=== PATIENT | female | born 1990 | race American Indian/Alaskan Native ===

== ENCOUNTER 2020-09-17 23:48 | Emergency (ER) | payer MEDICAID, OTHER ==
--- NOTE | 2020-09-17 23:55 | EDM.PDOC ---
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 Patient states some concern that she may be . Patient has not had a period in past 2 months. Patient did mention that she is having some lower abdominal pain with the bleeding she has not seen any clots or tissue passed. Patient denies any weakness or fatigue. Patient also reported having a little bit of alcohol joint earlier today abdominal Pain Score (Numeric/FACES): 7 - Related Data Allergies Allergy/AdvReac Type Severity Reaction Status Date / Time No Known Allergies Allergy Verified 09/17/20 23:49 Home Meds: Home Meds . [No Known Home Meds] 09/17/20 [History] ED ROS GENERAL - Review of Systems Review Of Systems: See Below Constitutional: Reports: No Symptoms HEENT: Reports: No Symptoms Respiratory: Reports: No Symptoms Cardiovascular: Reports: No Symptoms Endocrine: Reports: No Symptoms GI/Abdominal: Reports: No Symptoms : Reports: Irregular Menses Musculoskeletal: Reports: No Symptoms Skin: Reports: No Symptoms Neurological: Reports: No Symptoms Psychiatric: Reports: No Symptoms Hematologic/Lymphatic: Reports: No Symptoms Immunologic: Reports: No Symptoms ED EXAM, GENERAL - Physical Exam Exam: See Below Exam Limited By: No Limitations General Appearance: Alert, No Apparent Distress Eye Exam: Bilateral Eye: EOMI, PERRL Head: Atraumatic Neck: Normal Inspection Respiratory/Chest: No Respiratory Distress, Lungs Clear Cardiovascular: Normal Peripheral Pulses, Regular Rate, Rhythm GI/Abdominal: Normal Bowel Sounds, Soft, Non-Tender (Female) Exam: Normal External Exam, Normal Speculum Exam, Normal Bimanual Exam, Vaginal Bleeding. No: Adnexal Tenderness, Cervix Motion Tenderness Extremities: Normal Range of Motion Neurological: Alert, Oriented, CN II-XII Intact, Normal Cognition, Normal Gait Course - Vital Signs Last Recorded V/S: Last Vital Signs Temp 96.7 F L 09/18/20 02:27 Pulse 96 09/18/20 02:27 Resp 18 09/18/20 02:27 BP 167/97 H 09/18/20 02:27 Pulse Ox 100 09/18/20 02:27 - Orders/Labs/Meds Orders: Active Orders 24 hr Category Date Time Status CHLAMYDIA AND GONORRHEA BY TMA Stat Lab 09/18/20 01:45 Received Labs: Laboratory Tests 09/18/20 09/18/20 09/18/20 Range/Units 00:35 00:35 00:35 WBC 10.82 (4.0-11.0) K/uL RBC 4.01 L (4.30-5.90) M/uL Hgb 12.3 (12.0-16.0) g/dL Hct 37.3 (36.0-46.0) % MCV 93.0 (80.0-98.0) fL MCH 30.7 (27.0-32.0) pg MCHC 33.0 (31.0-37.0) g/dL RDW Std Deviation 45.0 (28.0-62.0) fl RDW Coeff of Oleksandr 14 (11.0-15.0) % Plt Count 216 (150-400) K/uL MPV 11.40 (7.40-12.00) fL Neut % (Auto) 66.8 (48.0-80.0) % Lymph % (Auto) 26.2 (16.0-40.0) % Hanson % (Auto) 5.0 (0.0-15.0) % Eos % (Auto) 1.8 (0.0-7.0) % Baso % (Auto) 0.2 (0.0-1.5) % Neut # (Auto) 7.2 H (1.4-5.7) K/uL Lymph # (Auto) 2.8 H (0.6-2.4) K/uL [place] # (Auto) 0.5 (0.0-0.8) K/uL Eos # (Auto) 0.2 (0.0-0.7) K/uL Baso # (Auto) 0.0 (0.0-0.1) K/uL Sodium 142 (136-145) mmol/L Potassium 3.5 (3.5-5.1) mmol/L Chloride 106 (98-107) mmol/L Carbon Dioxide 19.7 L (21.0-32.0) mmol/L BUN 9 (7.0-18.0) mg/dL Creatinine 0.8 (0.6-1.0) mg/dL Est Cr Clr Drug Dosing 92.53 mL/min Estimated GFR (MDRD) > 60.0 ml/min Glucose 124 H (74-106) mg/dL Calcium 9.4 (8.5-10.1) mg/dL Total Bilirubin 0.5 (0.2-1.0) mg/dL AST 99 H (15-37) IU/L ALT 136 H (14-63) IU/L Alkaline Phosphatase 92 (46-116) U/L Total Protein 7.6 (6.4-8.2) g/dL Albumin 3.7 (3.4-5.0) g/dL Globulin 3.9 (2.6-4.0) g/dL Albumin/Globulin Ratio 0.9 (0.9-1.6) HCG, Quant 5940.0 mIU/mL Ethyl Alcohol 15 mg/dL Shanda species DNA (NEGATIVE) Gardnerella DNA Probe (NEGATIVE) Trichomonas DNA Probe (NEGATIVE) Blood Type O POSITIVE 09/18/20 Range/Units 01:45 WBC (4.0-11.0) K/uL RBC (4.30-5.90) M/uL Hgb (12.0-16.0) g/dL Hct (36.0-46.0) % MCV (80.0-98.0) fL MCH (27.0-32.0) pg MCHC (31.0-37.0) g/dL RDW Std Deviation (28.0-62.0) fl RDW Coeff of Oleksandr (11.0-15.0) % Plt Count (150-400) K/uL MPV (7.40-12.00) fL Neut % (Auto) (48.0-80.0) % Lymph % (Auto) (16.0-40.0) % [place] % (Auto) (0.0-15.0) % Eos % (Auto) (0.0-7.0) % Baso % (Auto) (0.0-1.5) % Neut # (Auto) (1.4-5.7) K/uL Lymph # (Auto) (0.6-2.4) K/uL Hanson # (Auto) (0.0-0.8) K/uL Eos # (Auto) (0.0-0.7) K/uL Baso # (Auto) (0.0-0.1) K/uL Sodium (136-145) mmol/L Potassium (3.5-5.1) mmol/L Chloride (98-107) mmol/L Carbon Dioxide (21.0-32.0) mmol/L BUN (7.0-18.0) mg/dL Creatinine (0.6-1.0) mg/dL Est Cr Clr Drug Dosing mL/min Estimated GFR (MDRD) ml/min Glucose (74-106) mg/dL Calcium (8.5-10.1) mg/dL Total Bilirubin (0.2-1.0) mg/dL AST (15-37) IU/L ALT (14-63) IU/L Alkaline Phosphatase (46-116) U/L Total Protein (6.4-8.2) g/dL Albumin (3.4-5.0) g/dL Globulin (2.6-4.0) g/dL Albumin/Globulin Ratio (0.9-1.6) HCG, Quant mIU/mL Ethyl Alcohol mg/dL Shanda species DNA NEGATIVE (NEGATIVE) Gardnerella DNA Probe NEGATIVE (NEGATIVE) Trichomonas DNA Probe NEGATIVE (NEGATIVE) Blood Type Meds: Medications Discontinued Medications Generic Name Dose Route Start Last Admin Trade Name Freq PRN Reason Stop Dose Admin Acetaminophen 650 mg 09/18/20 01:36 09/18/20 02:26 Tylenol PO 09/18/20 01:37 650 mg NOW ONE Administration - Re-Assessments/Exams Free Text/Narrative Re-Assessment/Exam: 09/18/20 01:50 Patient beta-hCG is positive. Still had large clots but no tissue seen. Patient will not be sent for transvaginal ultrasound to confirm IUP. 09/18/20 03:05 , Shows a possible miscarriage. Patient vital signs are stable. Patient will be discharged and will be placed on a beta list to have hCG drawn in 2 days. Departure - Departure Time of Disposition: 03:07 Disposition: Home, Self-Care 01 Condition: Good Clinical Impression: Spontaneous - Discharge Information *PRESCRIPTION DRUG MONITORING PROGRAM REVIEWED*: Not Applicable *COPY OF PRESCRIPTION DRUG MONITORING REPORT IN PATIENT AIDE: Not Applicable Instructions: Miscarriage, [id number] Referrals: PCP,None [Primary Care Provider] - Forms: ED Department Discharge Additional Instructions: The following information is given to patients seen in the emergency department who are being discharged to home. This information is to outline your options for follow-up care. We provide all patients seen in our emergency department with a follow-up referral. The need for follow-up, as well as the timing and circumstances, are variable depending upon the specifics of your emergency department visit. If you don't have a primary care physician on staff, we will provide you with a referral. We always advise you to contact your personal physician following an emergency department visit to inform them of the circumstance of the visit and for follow-up with them and/or the need for any referrals to a consulting specialist. The emergency department will also refer you to a specialist when appropriate. This referral assures that you have the opportunity for follow-up care with a specialist. All of these measure are taken in an effort to provide you with optimal care, which includes your follow-up. Under all circumstances we always encourage you to contact your private physician who remains a resource for coordinating your care. When calling for follow-up care, please make the office aware that this follow-up is from your recent emergency room visit. If for any reason you are refused follow-up, please contact the [facility] Emergency Department at and asked to speak to the emergency department charge nurse. Please follow up with your primary care physician. If you do not have a primary care physician, see below: [facility] [address] [place] [id number] [facility] [address] [place] [id number] Please follow up with [employer] in the next 2 days to have your repeat beta-hCG. You have any increased margareth pain vaginal bleeding or weakness please return to the ED. Sepsis Event Note (ED) - Focused Exam Vital Signs: Vital Signs Temp Pulse Resp BP Pulse Ox 09/18/20 02:27 96.7 F L 96 18 167/97 H 100 09/18/20 01:43 96.7 F L 96 18 142/103 H 97 09/17/20 23:49 98.0 F 102 H 22 H 185/111 H 96 09/17/20 23:48 96.7 F L 96 18 185/111 H 97 - My Orders Last 24 Hours: My Active Orders 09/18/20 01:45 CHLAMYDIA AND GONORRHEA BY TMA Stat - Assessment/Plan Last 24 Hours: My Active Orders 09/18/20 01:45 CHLAMYDIA AND GONORRHEA BY TMA Stat Plan: Patient is a 29-year-old female who presents today for vaginal bleeding. Patient is unsure if she is or not. Will send beta hCG and labs and reassess.
[2020-09-18 01:31] LABS: BLOOD UREA NITROGEN,BUN 9 mg/dL (7.0-18.0); CARBON DIOXIDE,CO2 19.7 mmol/L (21.0-32.0); CHLORIDE,CL 106 mmol/L (98-107); GLUCOSE RANDOM 124 mg/dL (74-106); POTASSIUM,K 3.5 mmol/L (3.5-5.1); SODIUM,NA 142 mmol/L (136-145)
[2020-09-18] MEDS ORDERED: Acetaminophen 325 MG Tab PO ONE (01:36)
--- NOTE | 2020-09-18 02:57 | US ---
INDICATION: Lower abdominal pain and vaginal bleeding COMPARISON: None TECHNIQUE: Multiple grayscale sonographic images of the pelvis. Scanning performed transabdominally and transvaginally. FINDINGS: No evidence of viable intrauterine gestation. Thickening and heterogeneity of the endometrium with irregular 7 x 6 x 11 mm thick-walled cystic focus in the lower uterine segment. Heterogeneous material fills the endocervical canal. The right ovary measures 2.9 x 2.0 x 2.2 cm. The left ovary measures 1.8 x 1.4 x 2.9 cm. There is grossly unremarkable appearance of both ovaries, which are only seen transabdominally. Suboptimal Doppler evaluation of the ovaries to deep location. IMPRESSION: 1. Irregular thick-walled cystic focus in the lower uterine segment and heterogeneous material filling the endocervical canal. Findings are concerning for failure. Correlate with follow-up ultrasound and serial serum beta HCG levels. 2. Grossly unremarkable appearance of the ovaries. Dictated by Terra Watson MD @ Sep 18 2020 2:50AM Signed by Dr. Terra Watson @ Sep 18 2020 2:56AM
[2020-09-19 12:03] LABS: C.TRACHOMATIS BY TMA Negative (Negative); N.GONORRHOEAE BY TMA Negative (Negative)
== END 2020-09-18 03:22 | disposition home or self-care (01) ==
LOC: MW.ED 23:48
DX: O03.9 Complete or unspecified spontaneous abortion without complication (principal)
CPT/HCPCS: 36415; 76817; 80053; 80307; 84702; 85025; 86900; 86901; 87480; 87491; 87510; 87591; 87660; 99284; A9270; 99283

== ENCOUNTER 2020-11-15 16:31 | Inpatient (IN) | payer MEDICAID, OTHER ==
[2020-11-15] MEDS ORDERED: Sodium Chloride 0.9% 1,000 ML IV ONE ×2 (16:40→20:25)
[2020-11-15] MEDS ORDERED: Sodium Chloride 0.9% 10 ML Syringe FLUSH PRN (16:40)
[2020-11-15] MEDS ORDERED: Sodium Chloride 0.9% 2.5 ML Syringe FLUSH PRN (16:40)
[2020-11-15] MEDS ORDERED: LORazepam 2 MG/ML SDV IVPUSH ONE (16:50)
[2020-11-15] MEDS ORDERED: Sodium Chloride 0.9% 1,000 ML IV SCH ×2 (17:00→20:45)
[2020-11-15] MEDS ORDERED: MVI, Adult with Vitamin K 10 ML, Thiamine 100 MG, Folic Acid 1 MG in Sodium Chloride 0.... IV ONE ×4 (17:15)
--- NOTE | 2020-11-15 17:15 | EDM.PDOC ---
ED HPI GENERAL MEDICAL PROBLEM - General Chief Complaint: Syncope Stated Complaint: SYNCOPE Time Seen by Provider: 11/15/20 16:50 Source of Information: Reports: Patient History Limitations: Reports: No Limitations - History of Present Illness INITIAL COMMENTS - FREE TEXT/NARRATIVE: 30-year-old female G7, P4, [place] 8 weeks per patient, was brought in by ambulance for possible syncopal episode at work. SHe denies ever passing out, but admits to feeling dizziness. She admits to binge drinking alcohol on friday and started having nausea and vomiting the following day, she has not been tolerating anything p.o. since. She admits to feeling tremulous, agitated, nausea, vomiting sweaty, anxious, agitated, head fullness sensation. She claims she had a miscarriage in September and became in October. She currently denies chest pain, shortness of breath, abdominal pain, vaginal bleeding, leakage of fluid, pelvic pain. ROS: A 10-point review of systems, other than pertinent positives and negatives as stated per HPI, is otherwise negative Past medical history: No additional pertinent history Past Surgical history: No additional pertinent history Social history: No additional pertinent history Family history: No additional pertinent history PHYSICAL EXAM General: AOx4, GCS = 15, moderate distress, tremulous HEENT: dry mucous membrane Skin: Clammy Neck: supple, no meningismus, no Kernig or Brudzinski Cardiac: S1S2 tachycardia Respiratory: CTAB, no crackles or rales, no wheezing Abdomen: Soft, nontender, no rebound or guarding, nondistended, no pulsatile mass. 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: Musculoskeletal History: Reports: None Neurological History: Reports: None Psychiatric History: Reports: Anxiety Endocrine/Metabolic History: Reports: None Hematologic History: Reports: None - Infectious Disease History Infectious Disease History: Reports: None - Past Surgical History Other HEENT Surgeries/Procedures: oral surgery Female Surgical History: Reports: Section Social & Family History - Family History Family Medical History: No Pertinent Family History - Tobacco Use Tobacco Use Status *Q: Never Tobacco User - Caffeine Use Caffeine Use: Reports: None - Recreational Drug Use Recreational Drug Use: No ED ROS GENERAL - Review of Systems Review Of Systems: See Below (see dictation) ED EXAM, GENERAL - Physical Exam Exam: See Below (see dictation) #1 Interpretation EKG Interpretation Comments: Heart rate = 118 bpm, sinus tachycardia, normal QRS interval, no STEMI. EKG and rhythm strip interpreted by me at 1652 Course - Vital Signs Last Recorded V/S: Last Vital Signs Temp 97.9 F 11/15/20 16:34 Pulse 135 H 11/15/20 16:34 Resp 20 11/15/20 16:34 BP 132/90 11/15/20 16:34 Pulse Ox 96 11/15/20 16:34 - Orders/Labs/Meds Orders: Active Orders 24 hr Category Date Time Status Blood Glucose Check, Bedside [RC] ONETIME Care 11/15/20 16:40 Active Cardiac Monitoring [RC] . DIRECTED Care 11/15/20 16:42 Active EKG 12 Lead [EKG Documentation Completion] [RC] STAT Care 11/15/20 17:25 Active Pulse Oximetry [RC] ASDIRECTED Care 11/15/20 16:50 Active OB 1st Tri Sgl 1st Gest [US] Stat Exams 11/15/20 16:51 Ordered CORONAVIRUS COVID-19 RADHA [MOLEC] Stat Lab 11/15/20 16:50 Ordered DRUG SCREEN, URINE [URCHEM] Stat Lab 11/15/20 16:50 Ordered UA W/MICROSCOPIC [URIN] Stat Lab 11/15/20 16:51 Ordered Sodium Chloride 0.9% [Normal Saline] 1,000 ml Med 11/15/20 17:00 Active IV .BOLUS Sodium Chloride 0.9% [Saline Flush] Med 11/15/20 16:40 Active 10 ml FLUSH ASDIRECTED PRN Sodium Chloride 0.9% [Saline Flush] Med 11/15/20 16:40 Active 2.5 ml FLUSH ASDIRECTED PRN Saline Lock Insert [OM.PC] Stat Oth 11/15/20 16:39 Ordered Medication Orders Sodium Chloride (Normal Saline) 1,000 mls @ 999 mls/hr IV .BOLUS ELVA Sodium Chloride (Saline Flush) 10 ml FLUSH ASDIRECTED PRN PRN Reason: Keep Vein Open Last Admin: 11/15/20 18:17 Dose: 10 ml Documented by: [id number] Sodium Chloride (Saline Flush) 2.5 ml FLUSH ASDIRECTED PRN PRN Reason: Keep Vein Open Last Admin: 11/15/20 18:17 Dose: 2.5 ml Documented by: [id number] Labs: Laboratory Tests 11/15/20 11/15/20 11/15/20 Range/Units 16:51 16:51 16:51 WBC 10.86 (4.0-11.0) K/uL RBC 4.70 (4.30-5.90) M/uL Hgb 14.7 (12.0-16.0) g/dL Hct 43.9 (36.0-46.0) % MCV 93.4 (80.0-98.0) fL MCH 31.3 (27.0-32.0) pg MCHC 33.5 (31.0-37.0) g/dL RDW Std Deviation 50.1 (28.0-62.0) fl RDW Coeff of Oleksandr 15 (11.0-15.0) % Plt Count 143 L (150-400) K/uL MPV 11.80 (7.40-12.00) fL Neut % (Auto) 94.8 H (48.0-80.0) % Lymph % (Auto) 4.6 L (16.0-40.0) % [place] % (Auto) 0.5 (0.0-15.0) % Eos % (Auto) 0.1 (0.0-7.0) % Baso % (Auto) 0.0 (0.0-1.5) % Neut # (Auto) 10.3 H (1.4-5.7) K/uL Lymph # (Auto) 0.5 L (0.6-2.4) K/uL [place] # (Auto) 0.1 (0.0-0.8) K/uL Eos # (Auto) 0.0 (0.0-0.7) K/uL Baso # (Auto) 0.0 (0.0-0.1) K/uL Nucleated RBC % 0.3 /100WBC Nucleated RBCs # 0 K/uL INR 1.17 Lactate (0.20-2.00) mmol/L Sodium 137 (136-145) mmol/L Potassium 2.6 L (3.5-5.1) mmol/L Chloride 98 (98-107) mmol/L Carbon Dioxide 23.0 (21.0-32.0) mmol/L BUN 6 L (7.0-18.0) mg/dL Creatinine 1.3 H (0.6-1.0) mg/dL Est Cr Clr Drug Dosing 56.42 mL/min Estimated GFR (MDRD) 47.8 ml/min Glucose 161 H (74-106) mg/dL Calcium 9.3 (8.5-10.1) mg/dL Phosphorus (2.6-4.7) mg/dL Magnesium (1.8-2.4) mg/dL Total Bilirubin 1.1 H (0.2-1.0) mg/dL AST 76 H (15-37) IU/L ALT 85 H (14-63) IU/L Alkaline Phosphatase 127 H (46-116) U/L Creatine Kinase (26-308) U/L Troponin I < 0.050 (0.000-0.056) ng/mL Total Protein 7.6 (6.4-8.2) g/dL Albumin 3.5 (3.4-5.0) g/dL Globulin 4.1 H (2.6-4.0) g/dL Albumin/Globulin Ratio 0.9 (0.9-1.6) HCG, Qual (NEG) HCG, Quant mIU/mL Ethyl Alcohol mg/dL 11/15/20 11/15/20 11/15/20 Range/Units 16:51 16:51 16:51 WBC (4.0-11.0) K/uL RBC (4.30-5.90) M/uL Hgb (12.0-16.0) g/dL Hct (36.0-46.0) % MCV (80.0-98.0) fL MCH (27.0-32.0) pg MCHC (31.0-37.0) g/dL RDW Std Deviation (28.0-62.0) fl RDW Coeff of Oleksandr (11.0-15.0) % Plt Count (150-400) K/uL MPV (7.40-12.00) fL Neut % (Auto) (48.0-80.0) % Lymph % (Auto) (16.0-40.0) % [place] % (Auto) (0.0-15.0) % Eos % (Auto) (0.0-7.0) % Baso % (Auto) (0.0-1.5) % Neut # (Auto) (1.4-5.7) K/uL Lymph # (Auto) (0.6-2.4) K/uL [place] # (Auto) (0.0-0.8) K/uL Eos # (Auto) (0.0-0.7) K/uL Baso # (Auto) (0.0-0.1) K/uL Nucleated RBC % /100WBC Nucleated RBCs # K/uL INR Lactate 3.5 H* (0.20-2.00) mmol/L Sodium (136-145) mmol/L Potassium (3.5-5.1) mmol/L Chloride (98-107) mmol/L Carbon Dioxide (21.0-32.0) mmol/L BUN (7.0-18.0) mg/dL Creatinine (0.6-1.0) mg/dL Est Cr Clr Drug Dosing mL/min Estimated GFR (MDRD) ml/min Glucose (74-106) mg/dL Calcium (8.5-10.1) mg/dL Phosphorus 1.1 L (2.6-4.7) mg/dL Magnesium 0.7 L (1.8-2.4) mg/dL Total Bilirubin (0.2-1.0) mg/dL AST (15-37) IU/L ALT (14-63) IU/L Alkaline Phosphatase (46-116) U/L Creatine Kinase 506 H (26-308) U/L Troponin I (0.000-0.056) ng/mL Total Protein (6.4-8.2) g/dL Albumin (3.4-5.0) g/dL Globulin (2.6-4.0) g/dL Albumin/Globulin Ratio (0.9-1.6) HCG, Qual NEGATIVE (NEG) HCG, Quant < 1.0 mIU/mL Ethyl Alcohol < 3.0 mg/dL Meds: Medications Generic Name Dose Route Start Last Admin Trade Name Freq PRN Reason Stop Dose Admin Sodium Chloride 1,000 mls @ 999 mls/hr 11/15/20 17:00 Normal Saline IV .BOLUS ELVA Sodium Chloride 10 ml 11/15/20 16:40 11/15/20 18:17 Saline Flush FLUSH 10 ml ASDIRECTED PRN Administration Keep Vein Open Sodium Chloride 2.5 ml 11/15/20 16:40 11/15/20 18:17 Saline Flush FLUSH 2.5 ml ASDIRECTED PRN Administration Keep Vein Open Discontinued Medications Generic Name Dose Route Start Last Admin Trade Name Freq PRN Reason Stop Dose Admin Sodium Chloride 1,000 mls @ 999 mls/hr 11/15/20 16:40 11/15/20 18:16 Normal Saline IV 11/15/20 17:40 999 mls/hr .Bolus ONE Administration Multivitamins/Minerals 10 ml/ 1,011.2 mls @ 999 mls/hr 11/15/20 17:15 11/15/20 18:17 Thiamine HCl 100 mg/ Folic IV 11/15/20 18:15 999 mls/hr Acid 1 mg/ Sodium Chloride ONETIME ONE Administration Lorazepam 2 mg 11/15/20 16:50 11/15/20 18:17 Ativan IVPUSH 11/15/20 16:51 2 mg ONETIME ONE Administration - Re-Assessments/Exams Free Text/Narrative Re-Assessment/Exam: 11/15/20 18:[address] Barnes, who agrees to admit patient. The hospitalist's documentation supersedes all other documentation on this patient with regard to any conflicts or discrepancies from this point forward. Any emergency conditions have been treated to the ability of the ED prior to admission. Departure - Departure Time of Disposition: 18:33 Disposition: Admitted As Inpatient 65 Condition: Fair Clinical Impression: Alcohol withdrawal, Hypomagnesemia, Hypokalemia, Hypophosphatemia, Lactic acidosis - Discharge Information *PRESCRIPTION DRUG MONITORING PROGRAM REVIEWED*: Not Applicable *COPY OF PRESCRIPTION DRUG MONITORING REPORT IN PATIENT AIDE: Not Applicable Forms: ED Department Discharge Critical Care Note - Critical Care Note Total Time (mins): 40 Comments: CRITCAL CARE: The high probability of sudden, clinically significant deterioration in the patient's condition required the highest level of my preparedness to intervene urgently. The services I provided to this patient were to treat and/or prevent clinically significant deterioration. Services included the following: chart data review, reviewing nursing notes and/or old charts, documentation time, c consultant collaboration regarding findings and treatment options, medication orders and management, direct patient care, vital sign assessments and ordering, interpreting and reviewing diagnostic studies/lab tests. Aggregate critical care time includes only time during which I was engaged in work directly related to the patient's care, as described above, whether at the bedside or elsewhere in the Emergency Department. It did not include time spent performing other reported procedures or the services of residents, students, nurses or physician assistants. Frequent interventions and/or frequent repeat evaluations were required as well as counseling and coordination of care regarding prognosis, treatments, and discussions with patient, staff and consultants. Critical Care (excluding other procedures): 40 minutes Sepsis Event Note (ED) - Evaluation Sepsis Screening Result: No Definite Risk - Focused Exam Vital Signs: Vital Signs Temp Pulse Resp BP Pulse Ox 11/15/20 16:34 97.9 F 135 H 20 132/90 96 - My Orders Last 24 Hours: My Active Orders 11/15/20 16:39 Saline Lock Insert [OM.PC] Stat 11/15/20 16:40 Blood Glucose Check, Bedside [RC] ONETIME Sodium Chloride 0.9% [Saline Flush] 10 ml FLUSH ASDIRECTED PRN Sodium Chloride 0.9% [Saline Flush] 2.5 ml FLUSH ASDIRECTED PRN 11/15/20 16:42 Cardiac Monitoring [RC] . DIRECTED 11/15/20 16:50 Pulse Oximetry [RC] ASDIRECTED CORONAVIRUS COVID-19 RADHA [MOLEC] Stat DRUG SCREEN, URINE [URCHEM] Stat 11/15/20 16:51 OB 1st Tri Sgl 1st Gest [US] Stat UA W/MICROSCOPIC [URIN] Stat 11/15/20 17:00 Sodium Chloride 0.9% [Normal Saline] 1,000 ml IV .BOLUS 11/15/20 17:25 EKG 12 Lead [EKG Documentation Completion] [RC] STAT - Assessment/Plan Last 24 Hours: My Active Orders 11/15/20 16:39 Saline Lock Insert [OM.PC] Stat 11/15/20 16:40 Blood Glucose Check, Bedside [RC] ONETIME Sodium Chloride 0.9% [Saline Flush] 10 ml FLUSH ASDIRECTED PRN Sodium Chloride 0.9% [Saline Flush] 2.5 ml FLUSH ASDIRECTED PRN 11/15/20 16:42 Cardiac Monitoring [RC] . DIRECTED 11/15/20 16:50 Pulse Oximetry [RC] ASDIRECTED CORONAVIRUS COVID-19 RADHA [MOLEC] Stat DRUG SCREEN, URINE [URCHEM] Stat 11/15/20 16:51 OB 1st Tri Sgl 1st Gest [US] Stat UA W/MICROSCOPIC [URIN] Stat 11/15/20 17:00 Sodium Chloride 0.9% [Normal Saline] 1,000 ml IV .BOLUS 11/15/20 17:25 EKG 12 Lead [EKG Documentation Completion] [RC] STAT
[2020-11-15 17:30] LABS: BLOOD UREA NITROGEN,BUN 6 mg/dL (7.0-18.0); CHLORIDE,CL 98 mmol/L (98-107); GLUCOSE RANDOM 161 mg/dL (74-106); POTASSIUM,K 2.6 mmol/L (3.5-5.1); SODIUM,NA 137 mmol/L (136-145)
--- NOTE | 2020-11-15 18:52 | US ---
INDICATION: Positive home test, recent miscarriage, dizziness COMPARISON: Ob ultrasound 09/18/2020 TECHNIQUE: Multiple grayscale sonographic images of the pelvis. Scanning was performed transabdominally and transvaginally. FINDINGS: The uterus measures 6.6 x 3.5 x 4.0 cm. There is normal thickness of the endometrial stripe, measuring up to 0.6 cm. No intrauterine gestation demonstrated. The right ovary measures 2.1 x 1.3 x 1.9 cm. The left ovary measures 2.0 x 1.0 x 2.2 cm. There is normal sonographic appearance of the ovaries. Intact vascular flow is demonstrated to both ovaries with spectral Doppler. No significant free fluid is seen in the pelvis. IMPRESSION: No intrauterine demonstrated. This may be due to very early gestation or of unknown location. Correlate with serial serum HCG levels and follow-up ultrasound. Dictated by Terra Watson MD @ Nov 15 2020 6:46PM Signed by Dr. Terra Watson @ Nov 15 2020 6:51PM
--- NOTE | 2020-11-15 19:32 | PCM.HP.2 ---
<Jf Sanchez - Last Filed: 11/15/20 20:34> H&P History of Present Illness - General Date of Service: 11/15/20 Admit Problem/Dx: Admission Diagnosis/Problem Admission Diagnosis/Problem Alcohol withdrawal syndrome Source of Information: Patient History Limitations: Reports: No Limitations - History of Present Illness Initial Comments - Free Text/Narative: Patient is a 30-year-old female with no significant past medical history except alcohol use disorder presenting today after having a near syncopal episode while at work. Patient mentions feeling dizzy while at work without any loss of consciousness and or head trauma and was brought to the ED via EMS. On arrival patient states that she has been drinking alcohol heavily over the weekend spec ifically on Friday and having some hard liquor. Does endorse having some beers before that but cannot recall the amount of beers that she had prior to Saturdays binge drinking episode. ED course: Endorses feeling jittery and nauseous with tremors. Denies any hallucinations and or history of seizures. CIWA score greater than 20.. Provided with dose of Ativan 2 mg IV fluids 1 L x 2. Vitals otherwise stable except for mild tachycardia of 135 which improved to 104 after giving IV fluids. CBC negative CMP showed significant electrolyte changes with hypokalemia of 2.6, creatinine of 1.3, phosphorus 1.1 magnesium of 0.7 transaminitis. Of note patient states that she did have a miscarriage on September 22, 2020 and has not had any. Subsequently. Endorsed to the ED physician possibly in October however her hCG in the ED was negative including her quantitative. Ultrasound also performed not show any intrauterine at this time. Bedside: Endorses similar story as above. Mentions Ativan has helped and otherwise denies any hallucinations, cravings and or significant abdominal pain discomfort. - Related Data Allergies/Adverse Reactions: Allergies Allergy/AdvReac Type Severity Reaction Status Date / Time grass pollen Allergy Other Verified 11/15/20 21:59 house dust Allergy Other Verified 11/15/20 21:59 Home Medications: Home Meds Acetaminophen [Tylenol] 650 mg PO Q4H PRN 11/15/20 [History] Ibuprofen 800 mg PO Q6HR PRN 11/15/20 [History] Loratadine/Pseudoephedrine [Loratadine-D 12 Hour Tablet] 1 tab PO DAILY PRN 11/15/20 [History] 168/Iron/Folic/Omega3 [One-A-Day -1 Softgel] 1 tab PO DAILY 11/15/20 [History] Sertraline [Zoloft] 50 mg PO DAILY PRN 11/15/20 [History] traZODone HCl [Trazodone HCl] 50 mg PO BEDTIME 11/15/20 [History] Past Medical History Cardiovascular History: Reports: None Respiratory History: Reports: None Gastrointestinal History: Reports: None [employer] History: Reports: Musculoskeletal History: Reports: None Neurological History: Reports: None Psychiatric History: Reports: Anxiety Endocrine/Metabolic History: Reports: None Hematologic History: Reports: None - Infectious Disease History Infectious Disease History: Reports: None - Past Surgical History Other HEENT Surgeries/Procedures: oral surgery Female Surgical History: Reports: Section Social & Family History - Family History Family Medical History: No Pertinent Family History - Tobacco Use Tobacco Use Status *Q: Never Tobacco User - Caffeine Use Caffeine Use: Reports: None - Recreational Drug Use Recreational Drug Use: No H&P Review of Systems - Review of Systems: Review Of Systems: See Below General: Reports: Malaise, Decreased Appetite HEENT: Reports: No Symptoms Pulmonary: Reports: No Symptoms Cardiovascular: Reports: No Symptoms Gastrointestinal: Denies: Abdominal Pain, Constipation, Vomiting Musculoskeletal: Reports: No Symptoms Skin: Reports: No Symptoms Psychiatric: Reports: No Symptoms Neurological: Reports: Headache, Tremors. Denies: Confusion, Dizziness Exam - Exam Exam: See Below - Vital Signs Vital Signs: Last Vital Signs Temp 97.9 F 11/15/20 16:34 Pulse 104 H 11/15/20 18:36 Resp 20 11/15/20 16:34 BP 102/58 L 11/15/20 18:36 Pulse Ox 93 L 11/15/20 18:36 Weight: 127.006 kg - Exam Quality Assessment: No: Supplemental Oxygen General: Alert, Oriented, Cooperative HEENT: EOMI, Mucosa Moist & [place] Neck: Supple, Trachea Midline Lungs: Clear to Auscultation, Normal Respiratory Effort Cardiovascular: Regular Rate, Regular Rhythm GI/Abdominal Exam: Soft, Non-Tender Back Exam: Normal Inspection Extremities: Normal Inspection Skin: Warm Neurological: Cranial Nerves Intact Neuro Extensive - Mental Status: Alert, Oriented x3, Memory Intact Neuro Extensive - Motor, Sensory, Reflexes: Tremor Psychiatric: Alert - Patient Data Lab Results Last 24 hrs: Laboratory Results - last 24 hr 11/15/20 11/15/20 11/15/20 Range/Units 16:51 16:51 16:51 WBC 10.86 (4.0-11.0) K/uL RBC 4.70 (4.30-5.90) M/uL Hgb 14.7 (12.0-16.0) g/dL Hct 43.9 (36.0-46.0) % MCV 93.4 (80.0-98.0) fL MCH 31.3 (27.0-32.0) pg MCHC 33.5 (31.0-37.0) g/dL RDW Std Deviation 50.1 (28.0-62.0) fl RDW Coeff of Oleksandr 15 (11.0-15.0) % Plt Count 143 L (150-400) K/uL MPV 11.80 (7.40-12.00) fL Neut % (Auto) 94.8 H (48.0-80.0) % Lymph % (Auto) 4.6 L (16.0-40.0) % Isabella % (Auto) 0.5 (0.0-15.0) % Eos % (Auto) 0.1 (0.0-7.0) % Baso % (Auto) 0.0 (0.0-1.5) % Neut # (Auto) 10.3 H (1.4-5.7) K/uL Lymph # (Auto) 0.5 L (0.6-2.4) K/uL Isabella # (Auto) 0.1 (0.0-0.8) K/uL Eos # (Auto) 0.0 (0.0-0.7) K/uL Baso # (Auto) 0.0 (0.0-0.1) K/uL Nucleated RBC % 0.3 /100WBC Nucleated RBCs # 0 K/uL INR 1.17 Lactate (0.20-2.00) mmol/L Sodium 137 (136-145) mmol/L Potassium 2.6 L (3.5-5.1) mmol/L Chloride 98 (98-107) mmol/L Carbon Dioxide 23.0 (21.0-32.0) mmol/L BUN 6 L (7.0-18.0) mg/dL Creatinine 1.3 H (0.6-1.0) mg/dL Est Cr Clr Drug Dosing 56.42 mL/min Estimated GFR (MDRD) 47.8 ml/min Glucose 161 H (74-106) mg/dL Calcium 9.3 (8.5-10.1) mg/dL Phosphorus (2.6-4.7) mg/dL Magnesium (1.8-2.4) mg/dL Total Bilirubin 1.1 H (0.2-1.0) mg/dL AST 76 H (15-37) IU/L ALT 85 H (14-63) IU/L Alkaline Phosphatase 127 H (46-116) U/L Creatine Kinase (26-308) U/L Troponin I < 0.050 (0.000-0.056) ng/mL Total Protein 7.6 (6.4-8.2) g/dL Albumin 3.5 (3.4-5.0) g/dL Globulin 4.1 H (2.6-4.0) g/dL Albumin/Globulin Ratio 0.9 (0.9-1.6) HCG, Qual (NEG) HCG, Quant mIU/mL Ethyl Alcohol mg/dL 11/15/20 11/15/20 11/15/20 Range/Units 16:51 16:51 16:51 WBC (4.0-11.0) K/uL RBC (4.30-5.90) M/uL Hgb (12.0-16.0) g/dL Hct (36.0-46.0) % MCV (80.0-98.0) fL MCH (27.0-32.0) pg MCHC (31.0-37.0) g/dL RDW Std Deviation (28.0-62.0) fl RDW Coeff of Oleksandr (11.0-15.0) % Plt Count (150-400) K/uL MPV (7.40-12.00) fL Neut % (Auto) (48.0-80.0) % Lymph % (Auto) (16.0-40.0) % Isabella % (Auto) (0.0-15.0) % Eos % (Auto) (0.0-7.0) % Baso % (Auto) (0.0-1.5) % Neut # (Auto) (1.4-5.7) K/uL Lymph # (Auto) (0.6-2.4) K/uL Isabella # (Auto) (0.0-0.8) K/uL Eos # (Auto) (0.0-0.7) K/uL Baso # (Auto) (0.0-0.1) K/uL Nucleated RBC % /100WBC Nucleated RBCs # K/uL INR Lactate 3.5 H* (0.20-2.00) mmol/L Sodium (136-145) mmol/L Potassium (3.5-5.1) mmol/L Chloride (98-107) mmol/L Carbon Dioxide (21.0-32.0) mmol/L BUN (7.0-18.0) mg/dL Creatinine (0.6-1.0) mg/dL Est Cr Clr Drug Dosing mL/min Estimated GFR (MDRD) ml/min Glucose (74-106) mg/dL Calcium (8.5-10.1) mg/dL Phosphorus 1.1 L (2.6-4.7) mg/dL Magnesium 0.7 L (1.8-2.4) mg/dL Total Bilirubin (0.2-1.0) mg/dL AST (15-37) IU/L ALT (14-63) IU/L Alkaline Phosphatase (46-116) U/L Creatine Kinase 506 H (26-308) U/L Troponin I (0.000-0.056) ng/mL Total Protein (6.4-8.2) g/dL Albumin (3.4-5.0) g/dL Globulin (2.6-4.0) g/dL Albumin/Globulin Ratio (0.9-1.6) HCG, Qual NEGATIVE (NEG) HCG, Quant < 1.0 mIU/mL Ethyl Alcohol < 3.0 mg/dL Result Diagrams: 11/15/20 16:51 11/15/20 16:51 Sepsis Event Note - Evaluation Sepsis Screening Result: No Definite Risk - Focused Exam Vital Signs: Vital Signs Temp Pulse Resp BP Pulse Ox 11/15/20 18:36 104 H 102/58 L 93 L 11/15/20 16:34 97.9 F 135 H 20 132/90 96 - Problem List (1) Alcohol withdrawal SNOMED Code(s): 054792490 ICD Code: F10.239 - ALCOHOL DEPENDENCE WITH WITHDRAWAL, UNSPECIFIED Status: Acute Current Visit: Yes (2) Hypomagnesemia SNOMED Code(s): 206511610 ICD Code: E83.42 - HYPOMAGNESEMIA Status: Acute Current Visit: Yes (3) Hypokalemia SNOMED Code(s): 41882803 ICD Code: E87.6 - HYPOKALEMIA Status: Acute Current Visit: Yes (4) Hypophosphatemia SNOMED Code(s): 3964637 ICD Code: E83.39 - OTHER DISORDERS OF PHOSPHORUS METABOLISM Status: Acute Current Visit: Yes (5) Lactic acidosis SNOMED Code(s): 52582742 ICD Code: E87.2 - ACIDOSIS Status: Acute Current Visit: Yes Problem List Initiated/Reviewed/Updated: Yes Orders Last 24hrs: Active Orders 24 hr Category Date Time Status Patient Status [ADT] Routine ADT 11/15/20 18:32 Active Blood Glucose Check, Bedside [RC] ONETIME Care 11/15/20 16:40 Active Cardiac Monitoring [RC] . DIRECTED Care 11/15/20 16:42 Active EKG 12 Lead [EKG Documentation Completion] [RC] STAT Care 11/15/20 17:25 Active Pulse Oximetry [RC] ASDIRECTED Care 11/15/20 16:50 Active CORONAVIRUS COVID-19 RADHA [MOLEC] Stat Lab 11/15/20 19:01 Received DRUG SCREEN, URINE [URCHEM] Stat Lab 11/15/20 16:50 Ordered UA W/MICROSCOPIC [URIN] Stat Lab 11/15/20 16:51 Ordered Sodium Chloride 0.9% [Normal Saline] 1,000 ml Med 11/15/20 17:00 Active IV .BOLUS Sodium Chloride 0.9% [Saline Flush] Med 11/15/20 16:40 Active 10 ml FLUSH ASDIRECTED PRN Sodium Chloride 0.9% [Saline Flush] Med 11/15/20 16:40 Active 2.5 ml FLUSH ASDIRECTED PRN Saline Lock Insert [OM.PC] Stat Oth 11/15/20 16:39 Ordered Medication Orders Sodium Chloride (Normal Saline) 1,000 mls @ 999 mls/hr IV .BOLUS ELVA Sodium Chloride (Saline Flush) 10 ml FLUSH ASDIRECTED PRN PRN Reason: Keep Vein Open Last Admin: 11/15/20 18:17 Dose: 10 ml Documented by: [id number] Sodium Chloride (Saline Flush) 2.5 ml FLUSH ASDIRECTED PRN PRN Reason: Keep Vein Open Last Admin: 11/15/20 18:17 Dose: 2.5 ml Documented by: [id number] Assessment/Plan Comment:: Assessment: 1. Acute alcohol withdrawal 2. Alcohol use disorder 3. Elevated lactate 4. Hypokalemia 5. JENNIFER 6. Hypophosphatemia 7. Hypomagnesemia 8. transaminitis 9. hCG negative 10. COVID positive Plan Admit inpatient. Full code. I's and O's per routine vitals per routine Telemetry. Up with assistance. 1. Alcohol withdrawal: Initiate CIWA/Ativan protocol. Continue daily thiamine/folic acid. Replete electrolytes as needed. No significant history of alcohol withdrawal requiring admission; no history of seizures/hallucinations. We will continue to monitor. Last alcoholic drink on Friday, November 11, 2020 Start Diazepam 5 mg BID and titrate down accordingly Significant electrolyte disturbances: replete Mg now followed by potassium, phosphorus Continue to monitor on telemetry JENNIFER: monitor in AM in response to fluid administration 2. hCG negative: hCG qualitative/quantitative negative. Ultrasound also did not demonstrate any intrauterine pregnancies. Miscarriage on September 22, 2020 as confirmed with ultrasound as well. 3. COVID positive: currently not hypoxic, on room air; no overt signs of respirraory distress. Continue to monitor. May consider "BAM" treatment but will need to reassess in AM. <Sonya Barnes - Last Filed: 11/15/20 23:27> H&P History of Present Illness - General Admit Problem/Dx: Admission Diagnosis/Problem Admission Diagnosis/Problem Alcohol withdrawal syndrome - History of Present Illness Initial Comments - Free Text/Narative: I performed a history and physical exam of the patient and discussed management with resident. I have reviewed the residents note and agree with documented findings and plan unless otherwise specified in my note.' Exam - Vital Signs Vital Signs: Last Vital Signs Temp 36.4 C 11/15/20 20:31 Pulse 109 H 11/15/20 20:31 Resp 20 11/15/20 20:31 BP 123/78 11/15/20 20:31 Pulse Ox 97 11/15/20 20:31 - Patient Data Lab Results Last 24 hrs: Laboratory Results - last 24 hr 11/15/20 11/15/20 11/15/20 Range/Units 16:51 16:51 16:51 WBC 10.86 (4.0-11.0) K/uL RBC 4.70 (4.30-5.90) M/uL Hgb 14.7 (12.0-16.0) g/dL Hct 43.9 (36.0-46.0) % MCV 93.4 (80.0-98.0) fL MCH 31.3 (27.0-32.0) pg MCHC 33.5 (31.0-37.0) g/dL RDW Std Deviation 50.1 (28.0-62.0) fl RDW Coeff of Oleksandr 15 (11.0-15.0) % Plt Count 143 L (150-400) K/uL MPV 11.80 (7.40-12.00) fL Neut % (Auto) 94.8 H (48.0-80.0) % Lymph % (Auto) 4.6 L (16.0-40.0) % Isabella % (Auto) 0.5 (0.0-15.0) % Eos % (Auto) 0.1 (0.0-7.0) % Baso % (Auto) 0.0 (0.0-1.5) % Neut # (Auto) 10.3 H (1.4-5.7) K/uL Lymph # (Auto) 0.5 L (0.6-2.4) K/uL Isabella # (Auto) 0.1 (0.0-0.8) K/uL Eos # (Auto) 0.0 (0.0-0.7) K/uL Baso # (Auto) 0.0 (0.0-0.1) K/uL Nucleated RBC % 0.3 /100WBC Nucleated RBCs # 0 K/uL INR 1.17 Lactate (0.20-2.00) mmol/L Sodium 137 (136-145) mmol/L Potassium 2.6 L (3.5-5.1) mmol/L Chloride 98 (98-107) mmol/L Carbon Dioxide 23.0 (21.0-32.0) mmol/L BUN 6 L (7.0-18.0) mg/dL Creatinine 1.3 H (0.6-1.0) mg/dL Est Cr Clr Drug Dosing 56.42 mL/min Estimated GFR (MDRD) 47.8 ml/min Glucose 161 H (74-106) mg/dL Hemoglobin A1c (4.5 - 6.2) % Calcium 9.3 (8.5-10.1) mg/dL Phosphorus (2.6-4.7) mg/dL Magnesium (1.8-2.4) mg/dL Total Bilirubin 1.1 H (0.2-1.0) mg/dL AST 76 H (15-37) IU/L ALT 85 H (14-63) IU/L Alkaline Phosphatase 127 H (46-116) U/L Creatine Kinase (26-308) U/L Troponin I < 0.050 (0.000-0.056) ng/mL Total Protein 7.6 (6.4-8.2) g/dL Albumin 3.5 (3.4-5.0) g/dL Globulin 4.1 H (2.6-4.0) g/dL Albumin/Globulin Ratio 0.9 (0.9-1.6) HCG, Qual (NEG) HCG, Quant mIU/mL Urine Color Urine Appearance Urine pH (5.0-8.0) Ur Specific [place] (1.001-1.035) Urine Protein (NEGATIVE) mg/dL Urine Glucose (UA) (NEGATIVE) mg/dL Urine Ketones (NEGATIVE) mg/dL Urine Occult Blood (NEGATIVE) Urine Nitrite (NEGATIVE) Urine Bilirubin (NEGATIVE) Urine Urobilinogen (<2.0) EU/dL Ur Leukocyte Esterase (NEGATIVE) Urine RBC (0-2/HPF) Urine WBC (0-5/HPF) Ur Epithelial Cells (NONE-FEW) Urine Bacteria (NEGATIVE) Urine Mucus (NONE-MOD) Urine Opiates Screen (NEGATIVE) Ur Oxycodone Screen (NEGATIVE) Urine Methadone Screen (NEGATIVE) Ur Barbiturates Screen (NEGATIVE) Ur Phencyclidine Scrn (NEGATIVE) Ur Amphetamine Screen (NEGATIVE) U Methamphetamines Scrn (NEGATIVE) U Benzodiazepines Scrn (NEGATIVE) U Cocaine Metab Screen (NEGATIVE) U Marijuana (THC) Screen (NEGATIVE) Ethyl Alcohol mg/dL SARS-CoV-2 RNA (RADHA) (NEGATIVE) 11/15/20 11/15/20 11/15/20 Range/Units 16:51 16:51 16:51 WBC (4.0-11.0) K/uL RBC (4.30-5.90) M/uL Hgb (12.0-16.0) g/dL Hct (36.0-46.0) % MCV (80.0-98.0) fL MCH (27.0-32.0) pg MCHC (31.0-37.0) g/dL RDW Std Deviation (28.0-62.0) fl RDW Coeff of Oleksandr (11.0-15.0) % Plt Count (150-400) K/uL MPV (7.40-12.00) fL Neut % (Auto) (48.0-80.0) % Lymph % (Auto) (16.0-40.0) % Isabella % (Auto) (0.0-15.0) % Eos % (Auto) (0.0-7.0) % Baso % (Auto) (0.0-1.5) % Neut # (Auto) (1.4-5.7) K/uL Lymph # (Auto) (0.6-2.4) K/uL Isabella # (Auto) (0.0-0.8) K/uL Eos # (Auto) (0.0-0.7) K/uL Baso # (Auto) (0.0-0.1) K/uL Nucleated RBC % /100WBC Nucleated RBCs # K/uL INR Lactate 3.5 H* (0.20-2.00) mmol/L Sodium (136-145) mmol/L Potassium (3.5-5.1) mmol/L Chloride (98-107) mmol/L Carbon Dioxide (21.0-32.0) mmol/L BUN (7.0-18.0) mg/dL Creatinine (0.6-1.0) mg/dL Est Cr Clr Drug Dosing mL/min Estimated GFR (MDRD) ml/min Glucose (74-106) mg/dL Hemoglobin A1c (4.5 - 6.2) % Calcium (8.5-10.1) mg/dL Phosphorus 1.1 L (2.6-4.7) mg/dL Magnesium 0.7 L (1.8-2.4) mg/dL Total Bilirubin (0.2-1.0) mg/dL AST (15-37) IU/L ALT (14-63) IU/L Alkaline Phosphatase (46-116) U/L Creatine Kinase 506 H (26-308) U/L Troponin I (0.000-0.056) ng/mL Total Protein (6.4-8.2) g/dL Albumin (3.4-5.0) g/dL Globulin (2.6-4.0) g/dL Albumin/Globulin Ratio (0.9-1.6) HCG, Qual NEGATIVE (NEG) HCG, Quant < 1.0 mIU/mL Urine Color Urine Appearance Urine pH (5.0-8.0) Ur Specific [place] (1.001-1.035) Urine Protein (NEGATIVE) mg/dL Urine Glucose (UA) (NEGATIVE) mg/dL Urine Ketones (NEGATIVE) mg/dL Urine Occult Blood (NEGATIVE) Urine Nitrite (NEGATIVE) Urine Bilirubin (NEGATIVE) Urine Urobilinogen (<2.0) EU/dL Ur Leukocyte Esterase (NEGATIVE) Urine RBC (0-2/HPF) Urine WBC (0-5/HPF) Ur Epithelial Cells (NONE-FEW) Urine Bacteria (NEGATIVE) Urine Mucus (NONE-MOD) Urine Opiates Screen (NEGATIVE) Ur Oxycodone Screen (NEGATIVE) Urine Methadone Screen (NEGATIVE) Ur Barbiturates Screen (NEGATIVE) Ur Phencyclidine Scrn (NEGATIVE) Ur Amphetamine Screen (NEGATIVE) U Methamphetamines Scrn (NEGATIVE) U Benzodiazepines Scrn (NEGATIVE) U Cocaine Metab Screen (NEGATIVE) U Marijuana (THC) Screen (NEGATIVE) Ethyl Alcohol < 3.0 mg/dL SARS-CoV-2 RNA (RADHA) (NEGATIVE) 11/15/20 11/15/20 11/15/20 Range/Units 16:51 19:01 21:07 WBC (4.0-11.0) K/uL RBC (4.30-5.90) M/uL Hgb (12.0-16.0) g/dL Hct (36.0-46.0) % MCV (80.0-98.0) fL MCH (27.0-32.0) pg MCHC (31.0-37.0) g/dL RDW Std Deviation (28.0-62.0) fl RDW Coeff of Oleksandr (11.0-15.0) % Plt Count (150-400) K/uL MPV (7.40-12.00) fL Neut % (Auto) (48.0-80.0) % Lymph % (Auto) (16.0-40.0) % Isabella % (Auto) (0.0-15.0) % Eos % (Auto) (0.0-7.0) % Baso % (Auto) (0.0-1.5) % Neut # (Auto) (1.4-5.7) K/uL Lymph # (Auto) (0.6-2.4) K/uL Isabella # (Auto) (0.0-0.8) K/uL Eos # (Auto) (0.0-0.7) K/uL Baso # (Auto) (0.0-0.1) K/uL Nucleated RBC % /100WBC Nucleated RBCs # K/uL INR Lactate (0.20-2.00) mmol/L Sodium (136-145) mmol/L Potassium (3.5-5.1) mmol/L Chloride (98-107) mmol/L Carbon Dioxide (21.0-32.0) mmol/L BUN (7.0-18.0) mg/dL Creatinine (0.6-1.0) mg/dL Est Cr Clr Drug Dosing mL/min Estimated GFR (MDRD) ml/min Glucose (74-106) mg/dL Hemoglobin A1c 5.7 (4.5 - 6.2) % Calcium (8.5-10.1) mg/dL Phosphorus 2.1 L (2.6-4.7) mg/dL Magnesium (1.8-2.4) mg/dL Total Bilirubin (0.2-1.0) mg/dL AST (15-37) IU/L ALT (14-63) IU/L Alkaline Phosphatase (46-116) U/L Creatine Kinase (26-308) U/L Troponin I (0.000-0.056) ng/mL Total Protein (6.4-8.2) g/dL Albumin (3.4-5.0) g/dL Globulin (2.6-4.0) g/dL Albumin/Globulin Ratio (0.9-1.6) HCG, Qual (NEG) HCG, Quant mIU/mL Urine Color Urine Appearance Urine pH (5.0-8.0) Ur Specific [place] (1.001-1.035) Urine Protein (NEGATIVE) mg/dL Urine Glucose (UA) (NEGATIVE) mg/dL Urine Ketones (NEGATIVE) mg/dL Urine Occult Blood (NEGATIVE) Urine Nitrite (NEGATIVE) Urine Bilirubin (NEGATIVE) Urine Urobilinogen (<2.0) EU/dL Ur Leukocyte Esterase (NEGATIVE) Urine RBC (0-2/HPF) Urine WBC (0-5/HPF) Ur Epithelial Cells (NONE-FEW) Urine Bacteria (NEGATIVE) Urine Mucus (NONE-MOD) Urine Opiates Screen (NEGATIVE) Ur Oxycodone Screen (NEGATIVE) Urine Methadone Screen (NEGATIVE) Ur Barbiturates Screen (NEGATIVE) Ur Phencyclidine Scrn (NEGATIVE) Ur Amphetamine Screen (NEGATIVE) U Methamphetamines Scrn (NEGATIVE) U Benzodiazepines Scrn (NEGATIVE) U Cocaine Metab Screen (NEGATIVE) U Marijuana (THC) Screen (NEGATIVE) Ethyl Alcohol mg/dL SARS-CoV-2 RNA (RADHA) POSITIVE H (NEGATIVE) 11/15/20 11/15/20 11/15/20 Range/Units 21:07 21:45 21:45 WBC (4.0-11.0) K/uL RBC (4.30-5.90) M/uL Hgb (12.0-16.0) g/dL Hct (36.0-46.0) % MCV (80.0-98.0) fL MCH (27.0-32.0) pg MCHC (31.0-37.0) g/dL RDW Std Deviation (28.0-62.0) fl RDW Coeff of Oleksandr (11.0-15.0) % Plt Count (150-400) K/uL MPV (7.40-12.00) fL Neut % (Auto) (48.0-80.0) % Lymph % (Auto) (16.0-40.0) % Isabella % (Auto) (0.0-15.0) % Eos % (Auto) (0.0-7.0) % Baso % (Auto) (0.0-1.5) % Neut # (Auto) (1.4-5.7) K/uL Lymph # (Auto) (0.6-2.4) K/uL Isabella # (Auto) (0.0-0.8) K/uL Eos # (Auto) (0.0-0.7) K/uL Baso # (Auto) (0.0-0.1) K/uL Nucleated RBC % /100WBC Nucleated RBCs # K/uL INR Lactate 1.2 (0.20-2.00) mmol/L Sodium (136-145) mmol/L Potassium (3.5-5.1) mmol/L Chloride (98-107) mmol/L Carbon Dioxide (21.0-32.0) mmol/L BUN (7.0-18.0) mg/dL Creatinine (0.6-1.0) mg/dL Est Cr Clr Drug Dosing mL/min Estimated GFR (MDRD) ml/min Glucose (74-106) mg/dL Hemoglobin A1c (4.5 - 6.2) % Calcium (8.5-10.1) mg/dL Phosphorus (2.6-4.7) mg/dL Magnesium (1.8-2.4) mg/dL Total Bilirubin (0.2-1.0) mg/dL AST (15-37) IU/L ALT (14-63) IU/L Alkaline Phosphatase (46-116) U/L Creatine Kinase (26-308) U/L Troponin I (0.000-0.056) ng/mL Total Protein (6.4-8.2) g/dL Albumin (3.4-5.0) g/dL Globulin (2.6-4.0) g/dL Albumin/Globulin Ratio (0.9-1.6) HCG, Qual (NEG) HCG, Quant mIU/mL Urine Color YELLOW Urine Appearance CLOUDY Urine pH 6.5 (5.0-8.0) Ur Specific [place] 1.010 (1.001-1.035) Urine Protein NEGATIVE (NEGATIVE) mg/dL Urine Glucose (UA) NEGATIVE (NEGATIVE) mg/dL Urine Ketones NEGATIVE (NEGATIVE) mg/dL Urine Occult Blood TRACE-INTACT H (NEGATIVE) Urine Nitrite POSITIVE H (NEGATIVE) Urine Bilirubin NEGATIVE (NEGATIVE) Urine Urobilinogen 0.2 (<2.0) EU/dL Ur Leukocyte Esterase LARGE H (NEGATIVE) Urine RBC 0-3 (0-2/HPF) Urine WBC 25-30 (0-5/HPF) Ur Epithelial Cells MODERATE (NONE-FEW) Urine Bacteria 4+ H (NEGATIVE) Urine Mucus LIGHT (NONE-MOD) Urine Opiates Screen NEGATIVE (NEGATIVE) Ur Oxycodone Screen NEGATIVE (NEGATIVE) Urine Methadone Screen NEGATIVE (NEGATIVE) Ur Barbiturates Screen NEGATIVE (NEGATIVE) Ur Phencyclidine Scrn NEGATIVE (NEGATIVE) Ur Amphetamine Screen NEGATIVE (NEGATIVE) U Methamphetamines Scrn NEGATIVE (NEGATIVE) U Benzodiazepines Scrn NEGATIVE (NEGATIVE) U Cocaine Metab Screen NEGATIVE (NEGATIVE) U Marijuana (THC) Screen NEGATIVE (NEGATIVE) Ethyl Alcohol mg/dL SARS-CoV-2 RNA (RADHA) (NEGATIVE) Result Diagrams: 11/15/20 16:51 11/15/20 16:51 Sepsis Event Note - Focused Exam Vital Signs: Vital Signs Temp Pulse Resp BP Pulse Ox 11/15/20 20:31 36.4 C 109 H 20 123/78 97 11/15/20 20:05 37.2 C 96 18 112/64 97 11/15/20 18:36 104 H 102/58 L 93 L 11/15/20 16:34 36.6 C 135 H 20 132/90 96 Orders Last 24hrs: Active Orders 24 hr Category Date Time Status Patient Status [ADT] Routine ADT 11/15/20 18:32 Active Antiembolic Devices [RC] PER UNIT ROUTINE Care 11/15/20 20:31 Active Blood Glucose Check, Bedside [RC] ONETIME Care 11/15/20 16:40 Active CIWAA Assessment [RC] ASDIRECTED Care 11/15/20 20:28 Active Cardiac Monitoring [RC] . DIRECTED Care 11/15/20 16:42 Active EKG 12 Lead [EKG Documentation Completion] [RC] STAT Care 11/15/20 17:25 Active Influenza Vaccine Charge [RC] .DISCHARGE Care 11/15/20 21:45 Active Oxygen Therapy [RC] PRN Care 11/15/20 20:31 Active Pulse Oximetry [RC] ASDIRECTED Care 11/15/20 16:50 Active Telemetry Monitoring [Cardiac Monitoring] [RC] . Care 11/15/20 20:28 Active DIRECTED Up With Assistance [RC] ASDIRECTED Care 11/15/20 20:31 Active VTE/DVT Education [RC] PER UNIT ROUTINE Care 11/15/20 20:31 Active Vital Signs [RC] Q4H Care 11/15/20 20:31 Active Regular Diet [DIET] Diet 11/15/20 Breakfast Active CBC WITH AUTO DIFF [HEME] AM Lab 11/16/20 05:11 Ordered CBC WITH AUTO DIFF [HEME] AM Lab 11/17/20 05:11 Ordered CBC WITH AUTO DIFF [HEME] AM Lab 11/18/20 05:11 Ordered COMPREHENSIVE METABOLIC PN,CMP [CHEM] AM Lab 11/16/20 05:11 Ordered COMPREHENSIVE METABOLIC PN,CMP [CHEM] AM Lab 11/17/20 05:11 Ordered COMPREHENSIVE METABOLIC PN,CMP [CHEM] AM Lab 11/18/20 05:11 Ordered LACTATE WITH REFLEX [BG] Urgent Lab 11/15/20 23:00 Ordered MAGNESIUM [CHEM] AM Lab 11/16/20 05:11 Ordered MAGNESIUM [CHEM] AM Lab 11/17/20 05:11 Ordered MAGNESIUM [CHEM] AM Lab 11/18/20 05:11 Ordered PHOSPHORUS [CHEM] DAILY Lab 11/16/20 20:30 Ordered PHOSPHORUS [CHEM] DAILY Lab 11/17/20 20:30 Ordered Flu Vacc [id number](6Mos Up)/Pf [Fluzone Quad Med 11/16/20 09:00 Once Syringe] 60 mcg IM .ONCE ONE Folic Acid Med 11/16/20 09:00 Active 1 mg PO DAILY Heparin Sodium Med 11/15/20 20:45 Active 5,000 units SUBCUT Q12H LORazepam [Ativan] Med 11/15/20 20:30 Active See Protocol IVPUSH Q4H Magnesium Sulfate/Water [Magnesium Sulfate in Water 2 Med 11/15/20 22:45 Active GM/50 ML] 2 gm in 50 ml IV ONETIME Ondansetron [Zofran] Med 11/15/20 20:31 Active 4 mg IVPUSH Q4H PRN Phosphorus #1 [Neutra-Phos] Med 11/16/20 00:00 Active 250 mg PO QID Sodium Chloride 0.9% [Normal Saline] 1,000 ml Med 11/15/20 17:00 Active IV .BOLUS Sodium Chloride 0.9% [Normal Saline] 1,000 ml Med 11/15/20 20:45 Active IV CONTINUOUS Sodium Chloride 0.9% [Saline Flush] Med 11/15/20 16:40 Active 10 ml FLUSH ASDIRECTED PRN Sodium Chloride 0.9% [Saline Flush] Med 11/15/20 16:40 Active 2.5 ml FLUSH ASDIRECTED PRN Sodium Chloride 0.9% with KCl [Normal Saline with 40 Med 11/15/20 22:45 Active mEq KCl] 1,000 ml IV ASDIRECTED diazePAM [Valium.] Med 11/15/20 22:45 Active 5 mg PO BID Saline Lock Insert [OM.PC] Stat Ot 11/15/20 16:39 Ordered Sequential Compression Device [OM.PC] Per Unit Routine Oth 11/15/20 20:31 Ordered Resuscitation Status Routine Resus Stat 11/15/20 20:31 Ordered Medication Orders Diazepam (Valium.) 5 mg PO BID [facility] Folic Acid (Folic Acid) 1 mg PO DAILY [facility] Heparin Sodium (Porcine) (Heparin Sodium) 5,000 units SUBCUT Q12H [facility] Last Admin: 11/15/20 22:45 Dose: 5,000 units Documented by: [id number] Sodium Chloride (Normal Saline) 1,000 mls @ 999 mls/hr IV .BOLUS [facility] Sodium Chloride (Normal Saline) 1,000 mls @ 150 mls/hr IV CONTINUOUS [facility] Potassium Chloride/Sodium Chloride (Normal Saline With 40 Meq Kcl) 1,000 mls @ 125 mls/hr IV ASDIRECTED [facility] Magnesium Sulfate (Magnesium Sulfate In Water 2 Gm/50 Ml) 2 gm in 50 mls @ 50 mls/hr IV ONETIME [facility] Influenza Virus Vaccine (Fluzone Quad Syringe) 60 mcg IM .ONCE ONE Stop: 11/16/20 09:01 Lorazepam (Ativan) 0 mg IVPUSH Q4H [facility]; Protocol Ondansetron HCl (Zofran) 4 mg IVPUSH Q4H PRN PRN Reason: Nausea Sodium Chloride (Saline Flush) 10 ml FLUSH ASDIRECTED PRN PRN Reason: Keep Vein Open Last Admin: 11/15/20 18:17 Dose: 10 ml Documented by: [id number] Sodium Chloride (Saline Flush) 2.5 ml FLUSH ASDIRECTED PRN PRN Reason: Keep Vein Open Last Admin: 11/15/20 18:17 Dose: 2.5 ml Documented by: [id number] Sodium Phosphate (Neutra-Phos) 250 mg PO QID [facility]
[2020-11-15] MEDS ORDERED: Magnesium Sulfate/Water 2 GM/50 ML BAG IV SCH ×2 (20:00→22:45)
[2020-11-15] MEDS ORDERED: Potassium Chloride 20 MEQ Tab.ER PO ONE ×2 (20:26→22:47)
[2020-11-15] MEDS ORDERED: Thiamine 100 MG in Sodium Chloride 0.9% 100 ML IV ONE (20:27)
[2020-11-15] MEDS ORDERED: Ondansetron 4 MG/2 ML SDV IVPUSH PRN (20:31)
[2020-11-15 20:52] LABS: HEMOGLOBIN A1C 5.7 %
[2020-11-15] MEDS ORDERED: diazePAM 5 MG/ML MDV IVPUSH SCH (21:00)
[2020-11-15] MEDS ORDERED: Potassium Chloride 10% 20 MEQ/15 ML Soln 30 ML UD Cup PO ONE (22:36)
[2020-11-15] MEDS ORDERED: Potassium Chloride 40 MEQ in Dextrose 5% in Water 1,000 ML IV SCH ×2 (22:45)
[2020-11-15] MEDS: Heparin Sodium 5,000 Units/ML Vial SUBCUT SCH (22:45)
[2020-11-15] MEDS ORDERED: Sodium Chloride 0.9% with KCl 1,000 ML IV SCH (22:45)
[2020-11-15] MEDS: LORazepam 2 MG/ML SDV IVPUSH SCH (23:17)
[2020-11-15] MEDS: Diazepam 5 MG Tab PO SCH (23:44)
[2020-11-16] MEDS: LORazepam 2 MG/ML SDV IVPUSH SCH ×6 (00:30→20:15)
[2020-11-16] MEDS: Phosphorus #1 250 MG Tab PO SCH ×5 (00:38→23:22)
[2020-11-16] MEDS ORDERED: cefTRIAXone 1 GM in Premix Bag 1 BAG IV SCH (01:15)
[2020-11-16] MEDS: Acetaminophen 325 MG Tab PO PRN ×3 (04:34→22:46)
[2020-11-16 06:14] LABS: CARBON DIOXIDE,CO2 24.5 mmol/L (21.0-32.0); POTASSIUM,K 3.3 mmol/L (3.5-5.1)
[2020-11-16] MEDS ORDERED: Potassium Chloride 20 MEQ Tab.ER PO ONE (08:15)
[2020-11-16] MEDS: Folic Acid 1 MG Tab PO SCH (09:00)
[2020-11-16] MEDS ORDERED: FLU VACC QS2020-21(6MOS UP)/PF 60 MCG/0.5 ML SYRINGE IM ONE (09:00)
[2020-11-16] MEDS: Sertraline 50 MG Tab PO SCH (09:08)
[2020-11-16] MEDS: Heparin Sodium 5,000 Units/ML Vial SUBCUT SCH ×2 (09:08→20:13)
[2020-11-16] MEDS: Diazepam 5 MG Tab PO SCH (09:08)
[2020-11-16] MEDS: Thiamine 100 MG in Sodium Chloride 0.9% 100 ML IV SCH (09:09)
[2020-11-16] MEDS: Sodium Chloride 0.9% 1,000 ML IV SCH ×2 (09:13→18:38)
--- NOTE | 2020-11-16 11:48 | PCM.PN ---
<Jf Sanchez - Last Filed: 11/16/20 12:38> - General Info Date of Service: 11/16/20 Subjective Update: Bedside: endorsing feeling less tremulous. Denies hallucinations/seizures. Denies dysuria Functional Status: Reports: Pain Controlled - Review of Systems General: Reports: Fatigue. Denies: Fever HEENT: Reports: No Symptoms Pulmonary: Reports: No Symptoms Cardiovascular: Reports: No Symptoms Gastrointestinal: Reports: No Symptoms. Denies: Nausea, Vomiting Musculoskeletal: Reports: No Symptoms Neurological: Reports: Headache, Tremors Psychiatric: Reports: No Symptoms - Patient Data Vitals - Most Recent: Last Vital Signs Temp 99.1 F 11/16/20 08:00 Pulse 102 H 11/16/20 08:00 Resp 20 11/16/20 08:00 BP 117/65 11/16/20 08:00 Pulse Ox 95 11/16/20 03:57 Weight - Most Recent: 124.103 kg I&O - Last 24 Hours: Intake & Output 11/15/20 11/16/20 11/16/20 22:59 06:59 14:59 Intake Total 3260 Output Total 950 Balance 2310 Lab Results Last 24 Hours: Laboratory Results - last 24 hr 11/15/20 11/15/20 11/15/20 Range/Units 16:51 16:51 16:51 WBC 10.86 (4.0-11.0) K/uL RBC 4.70 (4.30-5.90) M/uL Hgb 14.7 (12.0-16.0) g/dL Hct 43.9 (36.0-46.0) % MCV 93.4 (80.0-98.0) fL MCH 31.3 (27.0-32.0) pg MCHC 33.5 (31.0-37.0) g/dL RDW Std Deviation 50.1 (28.0-62.0) fl RDW Coeff of Oleksandr 15 (11.0-15.0) % Plt Count 143 L (150-400) K/uL MPV 11.80 (7.40-12.00) fL Neut % (Auto) 94.8 H (48.0-80.0) % Lymph % (Auto) 4.6 L (16.0-40.0) % [place] % (Auto) 0.5 (0.0-15.0) % Eos % (Auto) 0.1 (0.0-7.0) % Baso % (Auto) 0.0 (0.0-1.5) % Neut # (Auto) 10.3 H (1.4-5.7) K/uL Lymph # (Auto) 0.5 L (0.6-2.4) K/uL [place] # (Auto) 0.1 (0.0-0.8) K/uL Eos # (Auto) 0.0 (0.0-0.7) K/uL Baso # (Auto) 0.0 (0.0-0.1) K/uL Nucleated RBC % 0.3 /100WBC Nucleated RBCs # 0 K/uL INR 1.17 Lactate (0.20-2.00) mmol/L Sodium 137 (136-145) mmol/L Potassium 2.6 L (3.5-5.1) mmol/L Chloride 98 (98-107) mmol/L Carbon Dioxide 23.0 (21.0-32.0) mmol/L BUN 6 L (7.0-18.0) mg/dL Creatinine 1.3 H (0.6-1.0) mg/dL Est Cr Clr Drug Dosing 56.42 mL/min Estimated GFR (MDRD) 47.8 ml/min Glucose 161 H (74-106) mg/dL Hemoglobin A1c (4.5 - 6.2) % Calcium 9.3 (8.5-10.1) mg/dL Phosphorus (2.6-4.7) mg/dL Magnesium (1.8-2.4) mg/dL Total Bilirubin 1.1 H (0.2-1.0) mg/dL AST 76 H (15-37) IU/L ALT 85 H (14-63) IU/L Alkaline Phosphatase 127 H (46-116) U/L Creatine Kinase (26-308) U/L Troponin I < 0.050 (0.000-0.056) ng/mL Total Protein 7.6 (6.4-8.2) g/dL Albumin 3.5 (3.4-5.0) g/dL Globulin 4.1 H (2.6-4.0) g/dL Albumin/Globulin Ratio 0.9 (0.9-1.6) HCG, Qual (NEG) HCG, Quant mIU/mL Urine Color Urine Appearance Urine pH (5.0-8.0) Ur Specific [place] (1.001-1.035) Urine Protein (NEGATIVE) mg/dL Urine Glucose (UA) (NEGATIVE) mg/dL Urine Ketones (NEGATIVE) mg/dL Urine Occult Blood (NEGATIVE) Urine Nitrite (NEGATIVE) Urine Bilirubin (NEGATIVE) Urine Urobilinogen (<2.0) EU/dL Ur Leukocyte Esterase (NEGATIVE) Urine RBC (0-2/HPF) Urine WBC (0-5/HPF) Ur Epithelial Cells (NONE-FEW) Urine Bacteria (NEGATIVE) Urine Mucus (NONE-MOD) Urine Opiates Screen (NEGATIVE) Ur Oxycodone Screen (NEGATIVE) Urine Methadone Screen (NEGATIVE) Ur Barbiturates Screen (NEGATIVE) Ur Phencyclidine Scrn (NEGATIVE) Ur Amphetamine Screen (NEGATIVE) U Methamphetamines Scrn (NEGATIVE) U Benzodiazepines Scrn (NEGATIVE) U Cocaine Metab Screen (NEGATIVE) U Marijuana (THC) Screen (NEGATIVE) Ethyl Alcohol mg/dL SARS-CoV-2 RNA (RADHA) (NEGATIVE) 11/15/20 11/15/20 11/15/20 Range/Units 16:51 16:51 16:51 WBC (4.0-11.0) K/uL RBC (4.30-5.90) M/uL Hgb (12.0-16.0) g/dL Hct (36.0-46.0) % MCV (80.0-98.0) fL MCH (27.0-32.0) pg MCHC (31.0-37.0) g/dL RDW Std Deviation (28.0-62.0) fl RDW Coeff of Oleksandr (11.0-15.0) % Plt Count (150-400) K/uL MPV (7.40-12.00) fL Neut % (Auto) (48.0-80.0) % Lymph % (Auto) (16.0-40.0) % [place] % (Auto) (0.0-15.0) % Eos % (Auto) (0.0-7.0) % Baso % (Auto) (0.0-1.5) % Neut # (Auto) (1.4-5.7) K/uL Lymph # (Auto) (0.6-2.4) K/uL [place] # (Auto) (0.0-0.8) K/uL Eos # (Auto) (0.0-0.7) K/uL Baso # (Auto) (0.0-0.1) K/uL Nucleated RBC % /100WBC Nucleated RBCs # K/uL INR Lactate 3.5 H* (0.20-2.00) mmol/L Sodium (136-145) mmol/L Potassium (3.5-5.1) mmol/L Chloride (98-107) mmol/L Carbon Dioxide (21.0-32.0) mmol/L BUN (7.0-18.0) mg/dL Creatinine (0.6-1.0) mg/dL Est Cr Clr Drug Dosing mL/min Estimated GFR (MDRD) ml/min Glucose (74-106) mg/dL Hemoglobin A1c (4.5 - 6.2) % Calcium (8.5-10.1) mg/dL Phosphorus 1.1 L (2.6-4.7) mg/dL Magnesium 0.7 L (1.8-2.4) mg/dL Total Bilirubin (0.2-1.0) mg/dL AST (15-37) IU/L ALT (14-63) IU/L Alkaline Phosphatase (46-116) U/L Creatine Kinase 506 H (26-308) U/L Troponin I (0.000-0.056) ng/mL Total Protein (6.4-8.2) g/dL Albumin (3.4-5.0) g/dL Globulin (2.6-4.0) g/dL Albumin/Globulin Ratio (0.9-1.6) HCG, Qual NEGATIVE (NEG) HCG, Quant < 1.0 mIU/mL Urine Color Urine Appearance Urine pH (5.0-8.0) Ur Specific [place] (1.001-1.035) Urine Protein (NEGATIVE) mg/dL Urine Glucose (UA) (NEGATIVE) mg/dL Urine Ketones (NEGATIVE) mg/dL Urine Occult Blood (NEGATIVE) Urine Nitrite (NEGATIVE) Urine Bilirubin (NEGATIVE) Urine Urobilinogen (<2.0) EU/dL Ur Leukocyte Esterase (NEGATIVE) Urine RBC (0-2/HPF) Urine WBC (0-5/HPF) Ur Epithelial Cells (NONE-FEW) Urine Bacteria (NEGATIVE) Urine Mucus (NONE-MOD) Urine Opiates Screen (NEGATIVE) Ur Oxycodone Screen (NEGATIVE) Urine Methadone Screen (NEGATIVE) Ur Barbiturates Screen (NEGATIVE) Ur Phencyclidine Scrn (NEGATIVE) Ur Amphetamine Screen (NEGATIVE) U Methamphetamines Scrn (NEGATIVE) U Benzodiazepines Scrn (NEGATIVE) U Cocaine Metab Screen (NEGATIVE) U Marijuana (THC) Screen (NEGATIVE) Ethyl Alcohol < 3.0 mg/dL SARS-CoV-2 RNA (RADHA) (NEGATIVE) 11/15/20 11/15/20 11/15/20 Range/Units 16:51 19:01 21:07 WBC (4.0-11.0) K/uL RBC (4.30-5.90) M/uL Hgb (12.0-16.0) g/dL Hct (36.0-46.0) % MCV (80.0-98.0) fL MCH (27.0-32.0) pg MCHC (31.0-37.0) g/dL RDW Std Deviation (28.0-62.0) fl RDW Coeff of Oleksandr (11.0-15.0) % Plt Count (150-400) K/uL MPV (7.40-12.00) fL Neut % (Auto) (48.0-80.0) % Lymph % (Auto) (16.0-40.0) % [place] % (Auto) (0.0-15.0) % Eos % (Auto) (0.0-7.0) % Baso % (Auto) (0.0-1.5) % Neut # (Auto) (1.4-5.7) K/uL Lymph # (Auto) (0.6-2.4) K/uL [place] # (Auto) (0.0-0.8) K/uL Eos # (Auto) (0.0-0.7) K/uL Baso # (Auto) (0.0-0.1) K/uL Nucleated RBC % /100WBC Nucleated RBCs # K/uL INR Lactate (0.20-2.00) mmol/L Sodium (136-145) mmol/L Potassium (3.5-5.1) mmol/L Chloride (98-107) mmol/L Carbon Dioxide (21.0-32.0) mmol/L BUN (7.0-18.0) mg/dL Creatinine (0.6-1.0) mg/dL Est Cr Clr Drug Dosing mL/min Estimated GFR (MDRD) ml/min Glucose (74-106) mg/dL Hemoglobin A1c 5.7 (4.5 - 6.2) % Calcium (8.5-10.1) mg/dL Phosphorus 2.1 L (2.6-4.7) mg/dL Magnesium (1.8-2.4) mg/dL Total Bilirubin (0.2-1.0) mg/dL AST (15-37) IU/L ALT (14-63) IU/L Alkaline Phosphatase (46-116) U/L Creatine Kinase (26-308) U/L Troponin I (0.000-0.056) ng/mL Total Protein (6.4-8.2) g/dL Albumin (3.4-5.0) g/dL Globulin (2.6-4.0) g/dL Albumin/Globulin Ratio (0.9-1.6) HCG, Qual (NEG) HCG, Quant mIU/mL Urine Color Urine Appearance Urine pH (5.0-8.0) Ur Specific [place] (1.001-1.035) Urine Protein (NEGATIVE) mg/dL Urine Glucose (UA) (NEGATIVE) mg/dL Urine Ketones (NEGATIVE) mg/dL Urine Occult Blood (NEGATIVE) Urine Nitrite (NEGATIVE) Urine Bilirubin (NEGATIVE) Urine Urobilinogen (<2.0) EU/dL Ur Leukocyte Esterase (NEGATIVE) Urine RBC (0-2/HPF) Urine WBC (0-5/HPF) Ur Epithelial Cells (NONE-FEW) Urine Bacteria (NEGATIVE) Urine Mucus (NONE-MOD) Urine Opiates Screen (NEGATIVE) Ur Oxycodone Screen (NEGATIVE) Urine Methadone Screen (NEGATIVE) Ur Barbiturates Screen (NEGATIVE) Ur Phencyclidine Scrn (NEGATIVE) Ur Amphetamine Screen (NEGATIVE) U Methamphetamines Scrn (NEGATIVE) U Benzodiazepines Scrn (NEGATIVE) U Cocaine Metab Screen (NEGATIVE) U Marijuana (THC) Screen (NEGATIVE) Ethyl Alcohol mg/dL SARS-CoV-2 RNA (RADHA) POSITIVE H (NEGATIVE) 02/12/3111/15/20 11/15/20 Range/Units 21:07 21:45 21:45 WBC (4.0-11.0) K/uL RBC (4.30-5.90) M/uL Hgb (12.0-16.0) g/dL Hct (36.0-46.0) % MCV (80.0-98.0) fL MCH (27.0-32.0) pg MCHC (31.0-37.0) g/dL RDW Std Deviation (28.0-62.0) fl RDW Coeff of Oleksandr (11.0-15.0) % Plt Count (150-400) K/uL MPV (7.40-12.00) fL Neut % (Auto) (48.0-80.0) % Lymph % (Auto) (16.0-40.0) % [place] % (Auto) (0.0-15.0) % Eos % (Auto) (0.0-7.0) % Baso % (Auto) (0.0-1.5) % Neut # (Auto) (1.4-5.7) K/uL Lymph # (Auto) (0.6-2.4) K/uL [place] # (Auto) (0.0-0.8) K/uL Eos # (Auto) (0.0-0.7) K/uL Baso # (Auto) (0.0-0.1) K/uL Nucleated RBC % /100WBC Nucleated RBCs # K/uL INR Lactate 1.2 (0.20-2.00) mmol/L Sodium (136-145) mmol/L Potassium (3.5-5.1) mmol/L Chloride (98-107) mmol/L Carbon Dioxide (21.0-32.0) mmol/L BUN (7.0-18.0) mg/dL Creatinine (0.6-1.0) mg/dL Est Cr Clr Drug Dosing mL/min Estimated GFR (MDRD) ml/min Glucose (74-106) mg/dL Hemoglobin A1c (4.5 - 6.2) % Calcium (8.5-10.1) mg/dL Phosphorus (2.6-4.7) mg/dL Magnesium (1.8-2.4) mg/dL Total Bilirubin (0.2-1.0) mg/dL AST (15-37) IU/L ALT (14-63) IU/L Alkaline Phosphatase (46-116) U/L Creatine Kinase (26-308) U/L Troponin I (0.000-0.056) ng/mL Total Protein (6.4-8.2) g/dL Albumin (3.4-5.0) g/dL Globulin (2.6-4.0) g/dL Albumin/Globulin Ratio (0.9-1.6) HCG, Qual (NEG) HCG, Quant mIU/mL Urine Color YELLOW Urine Appearance CLOUDY Urine pH 6.5 (5.0-8.0) Ur Specific [place] 1.010 (1.001-1.035) Urine Protein NEGATIVE (NEGATIVE) mg/dL Urine Glucose (UA) NEGATIVE (NEGATIVE) mg/dL Urine Ketones NEGATIVE (NEGATIVE) mg/dL Urine Occult Blood TRACE-INTACT H (NEGATIVE) Urine Nitrite POSITIVE H (NEGATIVE) Urine Bilirubin NEGATIVE (NEGATIVE) Urine Urobilinogen 0.2 (<2.0) EU/dL Ur Leukocyte Esterase LARGE H (NEGATIVE) Urine RBC 0-3 (0-2/HPF) Urine WBC 25-30 (0-5/HPF) Ur Epithelial Cells MODERATE (NONE-FEW) Urine Bacteria 4+ H (NEGATIVE) Urine Mucus LIGHT (NONE-MOD) Urine Opiates Screen NEGATIVE (NEGATIVE) Ur Oxycodone Screen NEGATIVE (NEGATIVE) Urine Methadone Screen NEGATIVE (NEGATIVE) Ur Barbiturates Screen NEGATIVE (NEGATIVE) Ur Phencyclidine Scrn NEGATIVE (NEGATIVE) Ur Amphetamine Screen NEGATIVE (NEGATIVE) U Methamphetamines Scrn NEGATIVE (NEGATIVE) U Benzodiazepines Scrn NEGATIVE (NEGATIVE) U Cocaine Metab Screen NEGATIVE (NEGATIVE) U Marijuana (THC) Screen NEGATIVE (NEGATIVE) Ethyl Alcohol mg/dL SARS-CoV-2 RNA (RADHA) (NEGATIVE) 11/16/20 11/16/20 Range/Units 05:24 05:24 WBC 11.41 H (4.0-11.0) K/uL RBC 4.21 L (4.30-5.90) M/uL Hgb 13.0 (12.0-16.0) g/dL Hct 40.0 (36.0-46.0) % MCV 95.0 (80.0-98.0) fL MCH 30.9 (27.0-32.0) pg MCHC 32.5 (31.0-37.0) g/dL RDW Std Deviation 53.0 (28.0-62.0) fl RDW Coeff of Oleksandr 15 (11.0-15.0) % Plt Count 111 L (150-400) K/uL MPV 12.10 H (7.40-12.00) fL Neut % (Auto) 92.8 H (48.0-80.0) % Lymph % (Auto) 4.4 L (16.0-40.0) % [place] % (Auto) 2.7 (0.0-15.0) % Eos % (Auto) 0.0 (0.0-7.0) % Baso % (Auto) 0.1 (0.0-1.5) % Neut # (Auto) 10.6 H (1.4-5.7) K/uL Lymph # (Auto) 0.5 L (0.6-2.4) K/uL [place] # (Auto) 0.3 (0.0-0.8) K/uL Eos # (Auto) 0.0 (0.0-0.7) K/uL Baso # (Auto) 0.0 (0.0-0.1) K/uL Nucleated RBC % 0.0 /100WBC Nucleated RBCs # 0 K/uL INR Lactate (0.20-2.00) mmol/L Sodium 140 (136-145) mmol/L Potassium 3.3 L (3.5-5.1) mmol/L Chloride 105 (98-107) mmol/L Carbon Dioxide 24.5 (21.0-32.0) mmol/L BUN 8 (7.0-18.0) mg/dL Creatinine 1.3 H (0.6-1.0) mg/dL Est Cr Clr Drug Dosing 56.42 mL/min Estimated GFR (MDRD) 47.8 ml/min Glucose 159 H (74-106) mg/dL Hemoglobin A1c (4.5 - 6.2) % Calcium 8.2 L (8.5-10.1) mg/dL Phosphorus (2.6-4.7) mg/dL Magnesium 1.8 (1.8-2.4) mg/dL Total Bilirubin 0.6 (0.2-1.0) mg/dL AST 100 H (15-37) IU/L ALT 84 H (14-63) IU/L Alkaline Phosphatase 105 (46-116) U/L Creatine Kinase (26-308) U/L Troponin I (0.000-0.056) ng/mL Total Protein 6.4 (6.4-8.2) g/dL Albumin 2.8 L (3.4-5.0) g/dL Globulin 3.6 (2.6-4.0) g/dL Albumin/Globulin Ratio 0.8 L (0.9-1.6) HCG, Qual (NEG) HCG, Quant mIU/mL Urine Color Urine Appearance Urine pH (5.0-8.0) Ur Specific [place] (1.001-1.035) Urine Protein (NEGATIVE) mg/dL Urine Glucose (UA) (NEGATIVE) mg/dL Urine Ketones (NEGATIVE) mg/dL Urine Occult Blood (NEGATIVE) Urine Nitrite (NEGATIVE) Urine Bilirubin (NEGATIVE) Urine Urobilinogen (<2.0) EU/dL Ur Leukocyte Esterase (NEGATIVE) Urine RBC (0-2/HPF) Urine WBC (0-5/HPF) Ur Epithelial Cells (NONE-FEW) Urine Bacteria (NEGATIVE) Urine Mucus (NONE-MOD) Urine Opiates Screen (NEGATIVE) Ur Oxycodone Screen (NEGATIVE) Urine Methadone Screen (NEGATIVE) Ur Barbiturates Screen (NEGATIVE) Ur Phencyclidine Scrn (NEGATIVE) Ur Amphetamine Screen (NEGATIVE) U Methamphetamines Scrn (NEGATIVE) U Benzodiazepines Scrn (NEGATIVE) U Cocaine Metab Screen (NEGATIVE) U Marijuana (THC) Screen (NEGATIVE) Ethyl Alcohol mg/dL SARS-CoV-2 RNA (RADHA) (NEGATIVE) [place]andel Results Last 24 Hours: Microbiology 11/16/20 01:46 Anaerobic Blood Culture - Preliminary Blood - Venous Med Orders - Current: Current Medications Acetaminophen (Tylenol) 650 mg PO Q6H PRN PRN Reason: Pain Last Admin: 11/16/20 04:34 Dose: 650 mg Documented by: Diazepam (Valium.) 5 mg PO BID ELVA Last Admin: 11/16/20 09:08 Dose: 5 mg Documented by: Folic Acid (Folic Acid) 1 mg PO DAILY [facility] Heparin Sodium (Porcine) (Heparin Sodium) 5,000 units SUBCUT Q12H [facility] Last Admin: 11/16/20 09:08 Dose: 5,000 units Documented by: Sodium Chloride (Normal Saline) 1,000 mls @ 999 mls/hr IV .BOLUS [facility] Magnesium Sulfate (Magnesium Sulfate In Water 2 Gm/50 Ml) 2 gm in 50 mls @ 50 mls/hr IV ONETIME [facility] Last Admin: 11/15/20 23:31 Dose: 50 mls/hr Documented by: Sodium Chloride (Normal Saline) 1,000 mls @ 150 mls/hr IV Q6H [facility] Last Admin: 11/16/20 09:13 Dose: 150 mls/hr Documented by: Thiamine HCl 100 mg/ Sodium (Chloride) 101 mls @ 202 mls/hr IV DAILY [facility] Last Admin: 11/16/20 09:09 Dose: 202 mls/hr Documented by: Ceftriaxone Sodium/Dextrose 2 (gm/ Premix) 50 mls @ 100 mls/hr IV Q24H [facility] Lorazepam (Ativan) 0 mg IVPUSH Q4H [facility]; Protocol Last Admin: 11/16/20 09:11 Dose: Not Given Documented by: Ondansetron HCl (Zofran) 4 mg IVPUSH Q4H PRN PRN Reason: Nausea Sertraline HCl (Zoloft) 50 mg PO DAILY [facility] Last Admin: 11/16/20 09:08 Dose: 50 mg Documented by: Sodium Chloride (Saline Flush) 10 ml FLUSH ASDIRECTED PRN PRN Reason: Keep Vein Open Last Admin: 11/15/20 18:17 Dose: 10 ml Documented by: Sodium Chloride (Saline Flush) 2.5 ml FLUSH ASDIRECTED PRN PRN Reason: Keep Vein Open Last Admin: 11/15/20 18:17 Dose: 2.5 ml Documented by: Sodium Phosphate (Neutra-Phos) 250 mg PO QID [facility] Last Admin: 11/16/20 06:11 Dose: 250 mg Documented by: Discontinued Medications Diazepam (Valium) 5 mg IVPUSH BID [facility] Last Admin: 11/15/20 23:04 Dose: Not Given Documented by: Sodium Chloride (Normal Saline) 1,000 mls @ 999 mls/hr IV .Bolus ONE Stop: 11/15/20 17:40 Last Infusion: 11/15/20 18:16 Dose: 250 mls/hr Documented by: Multivitamins/Minerals 10 ml/Thiamine HCl 100 mg/ Folic Acid 1 mg/ Sodium Chloride 1,011.2 mls @ 999 mls/hr IV ONETIME ONE Stop: 11/15/20 18:15 Last Infusion: 11/15/20 18:17 Dose: 250 mls/hr Documented by: Magnesium Sulfate (Magnesium Sulfate In Water 2 Gm/50 Ml) 2 gm in 50 mls @ 50 mls/hr IV ONETIME [facility] Last Admin: 11/15/20 20:30 Dose: 50 mls/hr Documented by: Sodium Chloride (Normal Saline) 1,000 mls @ 999 mls/hr IV STAT ONE Stop: 11/15/20 21:25 Last Admin: 11/15/20 22:41 Dose: 999 mls/hr Documented by: Thiamine HCl 100 mg/ Sodium (Chloride) 101 mls @ 202 mls/hr IV DAILY ONE Stop: 11/15/20 20:28 Last Admin: 11/15/20 23:16 Dose: Not Given Documented by: Sodium Chloride (Normal Saline) 1,000 mls @ 150 mls/hr IV CONTINUOUS [facility] Potassium Chloride 40 meq/ (Dextrose/Water) 1,020 mls @ 125 mls/hr IV ASDIRECTED [facility] Potassium Chloride/Sodium Chloride (Normal Saline With 40 Meq Kcl) 1,000 mls @ 125 mls/hr IV ASDIRECTED ELVA Stop: 11/16/20 09:00 Last Admin: 11/15/20 23:52 Dose: 125 mls/hr Documented by: Ceftriaxone Sodium/Dextrose 1 (gm/ Premix) 50 mls @ 100 mls/hr IV Q24H [facility] Last Admin: 11/16/20 02:01 Dose: 100 mls/hr Documented by: Influenza Virus Vaccine (Pharmacy To Dose - Influenza Vaccine) 1 each IM ONETIME ONE Stop: 11/16/20 09:01 Influenza Virus Vaccine (Fluzone Quad [id number] Syringe) 60 mcg IM .ONCE ONE Stop: 11/16/20 09:01 Lorazepam (Ativan) 2 mg IVPUSH ONETIME ONE Stop: 11/15/20 16:51 Last Admin: 11/15/20 18:17 Dose: 2 mg Documented by: Potassium Chloride (Klor-Con M20) 40 meq PO ONETIME ONE Stop: 11/15/20 20:27 Last Admin: 11/15/20 23:04 Dose: Not Given Documented by: Potassium Chloride (Potassium Chloride) 40 meq PO ONETIME ONE Stop: 11/15/20 22:37 Last Admin: 11/15/20 23:05 Dose: Not Given Documented by: Potassium Chloride (Klor-Con M20) 40 meq PO ONETIME ONE Stop: 11/15/20 22:48 Last Admin: 11/15/20 23:44 Dose: 40 meq Documented by: Potassium Chloride (Klor-Con M20) 40 meq PO ONETIME ONE Stop: 11/16/20 08:16 Last Admin: 11/16/20 09:07 Dose: 40 meq Documented by: - Exam Quality Assessment: No: Supplemental Oxygen General: Alert, Oriented, Cooperative, No Acute Distress HEENT: Mucous Membr. Moist/[place] Neck: Supple Lungs: Clear to Auscultation, Normal Respiratory Effort Cardiovascular: Regular Rate, Regular Rhythm GI/Abdominal Exam: Soft, Non-Tender Neurological: Normal Gait, Normal Speech, Other (tremors noted ) Psy/Mental Status: Alert, Normal Affect, Normal Mood Sepsis Event Note - Evaluation Sepsis Screening Result: No Definite Risk - Focused Exam Vital Signs: Vital Signs Temp Pulse Resp BP BP Pulse Ox 11/16/20 08:00 99.1 F 102 H 20 117/65 11/16/20 03:57 100.9 F H 122 H 20 111/51 L 95 11/16/20 00:21 99.7 F 102 H 18 122/80 99 - Problem List & Annotations (1) Alcohol withdrawal SNOMED Code(s): 507641045 Code(s): F10.239 - ALCOHOL DEPENDENCE WITH WITHDRAWAL, UNSPECIFIED Status: Acute (2) Hypomagnesemia SNOMED Code(s): 159936148 Code(s): E83.42 - HYPOMAGNESEMIA Status: Acute (3) Hypokalemia SNOMED Code(s): 65022121 Code(s): E87.6 - HYPOKALEMIA Status: Acute (4) Hypophosphatemia SNOMED Code(s): 1965380 Code(s): E83.39 - OTHER DISORDERS OF PHOSPHORUS METABOLISM Status: Acute (5) Lactic acidosis SNOMED Code(s): 74518996 Code(s): E87.2 - ACIDOSIS Status: Acute - Problem List Review Problem List Initiated/Reviewed/Updated: Yes - My Orders Last 24 Hours: My Active Orders 11/15/20 20:28 CIWAA Assessment [RC] ASDIRECTED 11/15/20 20:30 LORazepam [Ativan] See Protocol IVPUSH Q4H 11/15/20 20:31 Antiembolic Devices [RC] PER UNIT ROUTINE Oxygen Therapy [RC] PRN Up With Assistance [RC] ASDIRECTED VTE/DVT Education [RC] PER UNIT ROUTINE Vital Signs [RC] Q4H Ondansetron [Zofran] 4 mg IVPUSH Q4H PRN Sequential Compression Device [OM.PC] Per Unit Routine Resuscitation Status Routine 11/15/20 20:45 Heparin Sodium 5,000 units SUBCUT Q12H 11/16/20 00:00 Phosphorus #1 [Neutra-Phos] 250 mg PO QID 11/16/20 09:00 Folic Acid 1 mg PO DAILY Sertraline [Zoloft] 50 mg PO DAILY Sodium Chloride 0.9% [Normal Saline] 1,000 ml IV Q6H Thiamine [Vitamin B-1] 100 mg Sodium Chloride 0.9% [Normal Saline] 100 ml IV DAILY 11/16/20 11:42 CULTURE BLOOD [BC] Stat CULTURE BLOOD [BC] Stat Blood Culture x2 Reflex Set [OM.PC] Stat 11/16/20 11:45 [id number] [Rocephin in Dextrose,Iso-Osm 2 GM/50 ML] 2 gm Premix Bag 1 bag IV Q24H 11/16/20 20:30 PHOSPHORUS [CHEM] DAILY 11/17/20 05:11 CBC WITH AUTO DIFF [HEME] AM COMPREHENSIVE METABOLIC PN,CMP [CHEM] AM MAGNESIUM [CHEM] AM 11/17/20 20:30 PHOSPHORUS [CHEM] DAILY 11/18/20 05:11 CBC WITH AUTO DIFF [HEME] AM COMPREHENSIVE METABOLIC PN,CMP [CHEM] AM MAGNESIUM [CHEM] AM - Plan Plan:: Assessment: 1. Acute alcohol withdrawal 2. Alcohol use disorder 3. Elevated lactate : resolved 4. Hypokalemia 5. JENNIFER 6. Hypophosphatemia 7. Hypomagnesemia 8. transaminitis 9. hCG negative 10. COVID positive 11. Gram negative rods Bacteremia Plan 1. Alcohol withdrawal: Initiate CIWA/Ativan protocol. Continue daily thiamine/folic acid. Replete electrolytes as needed. We will continue to monitor. Last alcoholic drink on November 11, 2020 Continue Diazepam 5 mg but once nightly; titrate accordingly Significant electrolyte disturbances: improving ; replete PRN Continue to monitor on telemetry JENNIFER: stable and unchanged; monitor in AM 2. Gram negative Rods bacteremia: Rocephin initially started at 1 gram daily for +UA; increase to 2 grams daily and repeat blood cultures ordered. Urine cultures pending. 3.. hCG negative: hCG qualitative/quantitative negative. Ultrasound also did not demonstrate any intrauterine pregnancies. Miscarriage on September 22, 2020 as confirmed with ultrasound as well. 4. COVID positive: currently not hypoxic, on room air; no overt signs of respiratory distress. Continue to monitor. Not a candidate for BAM treatment <Sonya Barnes - Last Filed: 11/18/20 14:41> - Patient Data Vitals - Most Recent: Last Vital Signs Temp 36.4 C 11/18/20 08:21 Pulse 84 11/18/20 08:21 Resp 16 11/18/20 08:21 BP 159/100 H 11/18/20 08:21 Pulse Ox 97 11/18/20 08:21 I&O - Last 24 Hours: Intake & Output 11/17/20 11/18/20 11/18/20 22:59 06:59 14:59 Intake Total 3104 3376 Output Total 850 1520 Balance 2254 1856 Lab Results Last 24 Hours: Laboratory Results - last 24 hr 11/17/20 11/18/20 11/18/20 Range/Units 23:00 06:20 06:20 WBC 10.13 (4.0-11.0) K/uL RBC 3.99 L (4.30-5.90) M/uL Hgb 12.3 (12.0-16.0) g/dL Hct 37.6 (36.0-46.0) % MCV 94.2 (80.0-98.0) fL MCH 30.8 (27.0-32.0) pg MCHC 32.7 (31.0-37.0) g/dL RDW Std Deviation 52.0 (28.0-62.0) fl RDW Coeff of Oleksandr 15 (11.0-15.0) % Plt Count 92 L (150-400) K/uL MPV 12.60 H (7.40-12.00) fL Neut % (Auto) 78.5 (48.0-80.0) % Lymph % (Auto) 12.5 L (16.0-40.0) % [place] % (Auto) 7.3 (0.0-15.0) % Eos % (Auto) 1.6 (0.0-7.0) % Baso % (Auto) 0.1 (0.0-1.5) % Neut # (Auto) 8.0 H (1.4-5.7) K/uL Lymph # (Auto) 1.3 (0.6-2.4) K/uL [place] # (Auto) 0.7 (0.0-0.8) K/uL Eos # (Auto) 0.2 (0.0-0.7) K/uL Baso # (Auto) 0.0 (0.0-0.1) K/uL Nucleated RBC % 0.0 /100WBC Nucleated RBCs # 0 K/uL Sodium 140 (136-145) mmol/L Potassium 4.0 (3.5-5.1) mmol/L Chloride 107 (98-107) mmol/L Carbon Dioxide 23.0 (21.0-32.0) mmol/L BUN 7 (7.0-18.0) mg/dL Creatinine 1.1 H (0.6-1.0) mg/dL Est Cr Clr Drug Dosing 66.68 mL/min Estimated GFR (MDRD) 57.9 ml/min Glucose 109 H (74-106) mg/dL Calcium 8.3 L (8.5-10.1) mg/dL Phosphorus 2.5 L (2.6-4.7) mg/dL Magnesium 1.9 (1.8-2.4) mg/dL Total Bilirubin 0.7 (0.2-1.0) mg/dL AST 71 H (15-37) IU/L ALT 91 H (14-63) IU/L Alkaline Phosphatase 95 (46-116) U/L Total Protein 6.7 (6.4-8.2) g/dL Albumin 2.4 L (3.4-5.0) g/dL Globulin 4.3 H (2.6-4.0) g/dL Albumin/Globulin Ratio 0.6 L (0.9-1.6) Yandel Results Last 24 Hours: Microbiology 11/16/20 12:07 Aerobic Blood Culture - Preliminary Blood - Venous NO GROWTH AFTER 2 DAYS Anaerobic Blood Culture - Preliminary NO GROWTH AFTER 2 DAYS 11/16/20 20:00 Shiga Toxin I & II - Final Stool / Feces 11/16/20 01:46 Aerobic Blood Culture - Final Blood - Venous Escherichia Coli Anaerobic Blood Culture - Final 11/16/20 01:52 Aerobic Blood Culture - Final Blood - Venous - Lab Draw Anaerobic Blood Culture - Final 11/15/20 21:45 Urine Culture - Final Urine, Clean Catch Escherichia Coli Med Orders - Current: Current Medications Discontinued Medications Acetaminophen (Tylenol) 650 mg PO Q6H PRN PRN Reason: Pain/Fever Last Admin: 11/18/20 12:28 Dose: 650 mg Documented by: Diazepam (Valium) 5 mg IVPUSH BID [facility] Last Admin: 11/15/20 23:04 Dose: Not Given Documented by: Diazepam (Valium.) 5 mg PO BID [facility] Last Admin: 11/16/20 09:08 Dose: 5 mg Documented by: Diazepam (Valium) 5 mg IV DAILY [facility] Folic Acid (Folic Acid) 1 mg PO DAILY [facility] Last Admin: 11/18/20 08:24 Dose: 1 mg Documented by: Heparin Sodium (Porcine) (Heparin Sodium) 5,000 units SUBCUT Q12H [facility] Last Admin: 11/18/20 08:24 Dose: 5,000 units Documented by: Sodium Chloride (Normal Saline) 1,000 mls @ 999 mls/hr IV .Bolus ONE Stop: 11/15/20 17:40 Last Infusion: 11/15/20 18:16 Dose: 250 mls/hr Documented by: Sodium Chloride (Normal Saline) 1,000 mls @ 999 mls/hr IV .BOLUS [facility] Multivitamins/Minerals 10 ml/Thiamine HCl 100 mg/ Folic Acid 1 mg/ Sodium Chloride 1,011.2 mls @ 999 mls/hr IV ONETIME ONE Stop: 11/15/20 18:15 Last Infusion: 11/15/20 18:17 Dose: 250 mls/hr Documented by: Magnesium Sulfate (Magnesium Sulfate In Water 2 Gm/50 Ml) 2 gm in 50 mls @ 50 mls/hr IV ONETIME [facility] Last Admin: 11/15/20 20:30 Dose: 50 mls/hr Documented by: Sodium Chloride (Normal Saline) 1,000 mls @ 999 mls/hr IV STAT ONE Stop: 11/15/20 21:25 Last Admin: 11/15/20 22:41 Dose: 999 mls/hr Documented by: Thiamine HCl 100 mg/ Sodium (Chloride) 101 mls @ 202 mls/hr IV DAILY ONE Stop: 11/15/20 20:28 Last Admin: 11/15/20 23:16 Dose: Not Given Documented by: Sodium Chloride (Normal Saline) 1,000 mls @ 150 mls/hr IV CONTINUOUS [facility] Potassium Chloride 40 meq/ (Dextrose/Water) 1,020 mls @ 125 mls/hr IV ASDIRECTED [facility] Potassium Chloride/Sodium Chloride (Normal Saline With 40 Meq Kcl) 1,000 mls @ 125 mls/hr IV ASDIRECTED [facility] Stop: 11/16/20 09:00 Last Admin: 11/15/20 23:52 Dose: 125 mls/hr Documented by: Magnesium Sulfate (Magnesium Sulfate In Water 2 Gm/50 Ml) 2 gm in 50 mls @ 50 mls/hr IV ONETIME [facility] Last Admin: 11/15/20 23:31 Dose: 50 mls/hr Documented by: Ceftriaxone Sodium/Dextrose 1 (gm/ Premix) 50 mls @ 100 mls/hr IV Q24H [facility] Last Admin: 11/16/20 02:01 Dose: 100 mls/hr Documented by: Sodium Chloride (Normal Saline) 1,000 mls @ 150 mls/hr IV Q6H [facility] Last Admin: 11/18/20 10:11 Dose: Not Given Documented by: Thiamine HCl 100 mg/ Sodium (Chloride) 101 mls @ 202 mls/hr IV DAILY [facility] Last Admin: 11/18/20 08:59 Dose: 202 mls/hr Documented by: Ceftriaxone Sodium/Dextrose 2 (gm/ Premix) 50 mls @ 100 mls/hr IV Q24H [facility] Ceftriaxone Sodium/Dextrose 1 (gm/ Premix) 50 mls @ 100 mls/hr IV ONETIME ONE Stop: 11/16/20 12:59 Last Admin: 11/16/20 13:17 Dose: Not Given Documented by: Ceftriaxone Sodium/Dextrose 1 (gm/ Premix) 50 mls @ 100 mls/hr IV ONETIME ONE Stop: 11/16/20 13:14 Last Admin: 11/16/20 13:08 Dose: 100 mls/hr Documented by: Piperacillin Sod/Tazobactam (Sod 3.375 gm/ Sodium Chloride) 50 mls @ 100 mls/hr IV Q6H [facility] Last Admin: 11/17/20 04:01 Dose: 100 mls/hr Documented by: Lactated Ringer's (Ringers, Lactated) 1,000 mls @ 999 mls/hr IV .BOLUS ONE Stop: 11/16/20 17:45 Last Admin: 11/16/20 17:30 Dose: 999 mls/hr Documented by: Piperacillin Sod/Tazobactam (Sod 4.5 gm/ Sodium Chloride) 100 mls @ 200 mls/hr IV Q6H [facility] Last Admin: 11/18/20 10:09 Dose: 200 mls/hr Documented by: Magnesium Sulfate (Magnesium Sulfate In Water 2 Gm/50 Ml) 2 gm in 50 mls @ 50 mls/hr IV ONETIME ONE Stop: 11/17/20 23:29 Last Admin: 11/17/20 22:30 Dose: 50 mls/hr Documented by: Influenza Virus Vaccine (Pharmacy To Dose - Influenza Vaccine) 1 each IM ONETIME ONE Stop: 11/16/20 09:01 Influenza Virus Vaccine (Fluzone Quad 1759-2008 Syringe) 60 mcg IM .ONCE ONE Stop: 11/16/20 09:01 Loperamide HCl (Imodium) 2 mg PO ONETIME ONE Stop: 11/16/20 22:56 Last Admin: 11/16/20 23:13 Dose: 2 mg Documented by: Loperamide HCl (Imodium) 2 mg PO ASDIRECTED PRN PRN Reason: Diarrhea Last Admin: 11/18/20 12:14 Dose: 2 mg Documented by: Lorazepam (Ativan) 2 mg IVPUSH ONETIME ONE Stop: 11/15/20 16:51 Last Admin: 11/15/20 18:17 Dose: 2 mg Documented by: Lorazepam (Ativan) 0 mg IVPUSH Q4H [facility]; Protocol Last Admin: 11/18/20 00:22 Dose: Not Given Documented by: Lorazepam (Ativan) 0 mg IVPUSH Q4H PRN; Protocol PRN Reason: Other Ondansetron HCl (Zofran) 4 mg IVPUSH Q4H PRN PRN Reason: Nausea Potassium Chloride (Klor-Con M20) 40 meq PO ONETIME ONE Stop: 11/15/20 20:27 Last Admin: 11/15/20 23:04 Dose: Not Given Documented by: Potassium Chloride (Potassium Chloride) 40 meq PO ONETIME ONE Stop: 11/15/20 22:37 Last Admin: 11/15/20 23:05 Dose: Not Given Documented by: Potassium Chloride (Klor-Con M20) 40 meq PO ONETIME ONE Stop: 11/15/20 22:48 Last Admin: 11/15/20 23:44 Dose: 40 meq Documented by: Potassium Chloride (Klor-Con M20) 40 meq PO ONETIME ONE Stop: 11/16/20 08:16 Last Admin: 11/16/20 09:07 Dose: 40 meq Documented by: Potassium Chloride (Klor-Con M20) 40 meq PO ONETIME ONE Stop: 11/17/20 07:57 Last Admin: 11/17/20 08:54 Dose: 40 meq Documented by: Sertraline HCl (Zoloft) 50 mg PO DAILY [facility] Last Admin: 11/17/20 08:15 Dose: 50 mg Documented by: Sertraline HCl (Zoloft) 25 mg PO DAILY [facility] Last Admin: 11/17/20 09:44 Dose: Not Given Documented by: Sodium Chloride (Saline Flush) 10 ml FLUSH ASDIRECTED PRN PRN Reason: Keep Vein Open Last Admin: 11/15/20 18:17 Dose: 10 ml Documented by: Sodium Chloride (Saline Flush) 2.5 ml FLUSH ASDIRECTED PRN PRN Reason: Keep Vein Open Last Admin: 11/15/20 18:17 Dose: 2.5 ml Documented by: Sodium Phosphate (Neutra-Phos) 250 mg PO QID [facility] Last Admin: 11/18/20 11:51 Dose: 250 mg Documented by: Sepsis Event Note - Focused Exam Vital Signs: Vital Signs Temp Pulse Resp BP Pulse Ox 11/18/20 08:21 36.4 C 84 16 159/100 H 97 11/18/20 03:23 37.1 C 98 16 144/93 H 100 - Plan Plan:: I have seen and evaluated the patient and agree with the residents note unless specified in my note
[2020-11-16] MEDS ORDERED: cefTRIAXone 1 GM in Premix Bag 1 BAG IV ONE ×2 (12:30→12:45)
[2020-11-16] MEDS ORDERED: Lactated Ringers 1,000 ML IV ONE (16:45)
[2020-11-16] MEDS: Piperacillin/Tazobactam 3.375 GM in Sodium Chloride 0.9% 50 ML IV SCH ×2 (16:53→22:40)
--- NOTE | 2020-11-16 18:39 | CT ---
INDICATION: Bacteremia COMPARISON: Ultrasound of the pelvis from yesterday. TECHNIQUE: CT examination of the abdomen and pelvis was performed without contrast enhancement using 3 mm thick axial sections from the lung bases through the pubic symphysis. Oral contrast was not administered. Please note that all CT scans at this facility use dose modulation, iterative reconstruction, and/or weight-based dosing when appropriate to reduce radiation dose to as low as reasonably achievable. FINDINGS: In the abdomen, the liver is slightly low in density, representing mild fatty infiltration. There is no sign of mass. The spleen, pancreas and adrenals are normal in appearance. There is mild soft tissue stranding around the right kidney with slightly increased size of the right kidney compared to the left. There is no sign of hydronephrosis, hydroureter, ureterolithiasis, or nephrolithiasis. The findings are nonspecific, but could represent pyelonephritis or pyelo interstitial backflow from recent obstruction of the urinary system. The left kidney is normal in appearance with no sign of any perinephric stranding. The left ureter is normal in appearance as well. There is prominent cholelithiasis, with numerous peripherally calcified gallstones filling the gallbladder. There is no sign of acute cholecystitis, with no sign of gallbladder wall thickening or pericholecystic fluid. The abdominal aorta is normal in caliber with no sign of dilatation. There is no sign of retroperitoneal mass or adenopathy. The stomach, loops of small bowel, and colon in the abdomen are normal in appearance. In the pelvis, the retrocecal appendix is normal in appearance with no sign of inflammatory process. The loops of small bowel and colon in the pelvis are normal in appearance. The uterus and adnexal regions are normal in appearance. The urinary bladder is normal in appearance. There is no sign of pelvic or inguinal mass or adenopathy. There is no sign of free air or free fluid in the abdomen or pelvis. The lung bases are clear. There is mild scoliosis of the lumbar spine convex towards the left. 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 There is prominent disc degenerative disease at L2-3 and L3-4 related to the scoliosis. 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 This can be further evaluated with MRI on a nonemergent basis. The appearance of the pelvic organs is consistent with the ultrasound from yesterday. IMPRESSION: CT of the abdomen shows mild soft tissue stranding around the mildly enlarged right kidney with no sign of obstruction or calculi. This may be from pyelonephritis or possibly from recent urinary system obstruction which has been relieved. Prominent cholelithiasis without evidence of acute cholecystitis. Normal CT of the pelvis without contrast. Please note that all CT scans at this facility use dose modulation, iterative reconstruction, and/or weight-based dosing when appropriate to reduce radiation dose to as low as reasonably achievable. Dictated by Edd Aguayo MD @ Nov 16 2020 6:30PM Signed by Dr. Edd Aguayo @ Nov 16 2020 6:38PM
[2020-11-16] MEDS ORDERED: Loperamide 2 MG Cap PO ONE (22:55)
[2020-11-17] MEDS: LORazepam 2 MG/ML SDV IVPUSH SCH ×6 (01:10→20:29)
[2020-11-17] MEDS: Sodium Chloride 0.9% 1,000 ML IV SCH ×8 (01:14→23:44)
[2020-11-17] MEDS: Piperacillin/Tazobactam 3.375 GM in Sodium Chloride 0.9% 50 ML IV SCH (04:01)
[2020-11-17] MEDS: Acetaminophen 325 MG Tab PO PRN ×4 (04:43→23:47)
[2020-11-17] MEDS: Phosphorus #1 250 MG Tab PO SCH ×4 (05:47→23:37)
[2020-11-17 06:18] LABS: CARBON DIOXIDE,CO2 21.3 mmol/L (21.0-32.0); POTASSIUM,K 3.1 mmol/L (3.5-5.1)
[2020-11-17] MEDS ORDERED: Potassium Chloride 20 MEQ Tab.ER PO ONE (07:56)
[2020-11-17] MEDS ORDERED: Magnesium Sulfate/Water 2 GM/50 ML BAG IV SCH (08:00)
--- NOTE | 2020-11-17 08:01 | PCM.PN ---
<Jf Sanchez - Last Filed: 11/17/20 13:00> - General Info Date of Service: 11/17/20 Subjective Update: Endorses diarrhea was not helped by loperamide; otherwise in no acute distress. Occasional coughing but otherwise no acute respiratory distress Functional Status: Reports: Pain Controlled - Review of Systems General: Reports: No Symptoms HEENT: Reports: No Symptoms Pulmonary: Reports: Cough Cardiovascular: Reports: No Symptoms Gastrointestinal: Reports: Diarrhea. Denies: Abdominal Pain, Constipation, Nausea, Vomiting Genitourinary: Reports: No Symptoms Musculoskeletal: Reports: Back Pain Skin: Reports: No Symptoms Neurological: Reports: Headache - Patient Data Vitals - Most Recent: Last Vital Signs Temp 99.1 F 11/17/20 03:58 Pulse 98 11/17/20 03:58 Resp 20 11/17/20 03:58 BP 154/80 H 11/17/20 03:58 Pulse Ox 97 11/17/20 03:58 Weight - Most Recent: 124.103 kg I&O - Last 24 Hours: Intake & Output 11/16/20 11/17/20 11/17/20 22:59 06:59 14:59 Intake Total 2015 3198 Output Total 1700 950 Balance 316 2248 Lab Results Last 24 Hours: Laboratory Results - last 24 hr 11/16/20 11/17/20 11/17/20 Range/Units 20:32 05:11 05:11 WBC 14.56 H (4.0-11.0) K/uL RBC 4.09 L (4.30-5.90) M/uL Hgb 12.4 (12.0-16.0) g/dL Hct 38.9 (36.0-46.0) % MCV 95.1 (80.0-98.0) fL MCH 30.3 (27.0-32.0) pg MCHC 31.9 (31.0-37.0) g/dL RDW Std Deviation 54.5 (28.0-62.0) fl RDW Coeff of Oleksandr 16 H (11.0-15.0) % Plt Count 95 L (150-400) K/uL MPV 13.00 H (7.40-12.00) fL Neut % (Auto) 90.9 H (48.0-80.0) % Lymph % (Auto) 5.4 L (16.0-40.0) % White % (Auto) 3.2 (0.0-15.0) % Eos % (Auto) 0.4 (0.0-7.0) % Baso % (Auto) 0.1 (0.0-1.5) % Neut # (Auto) 13.2 H (1.4-5.7) K/uL Lymph # (Auto) 0.8 (0.6-2.4) K/uL White # (Auto) 0.5 (0.0-0.8) K/uL Eos # (Auto) 0.1 (0.0-0.7) K/uL Baso # (Auto) 0.0 (0.0-0.1) K/uL Nucleated RBC % 0.0 /100WBC Nucleated RBCs # 0 K/uL Sodium 140 (136-145) mmol/L Potassium 3.1 L (3.5-5.1) mmol/L Chloride 105 (98-107) mmol/L Carbon Dioxide 21.3 (21.0-32.0) mmol/L BUN 10 (7.0-18.0) mg/dL Creatinine 1.1 H (0.6-1.0) mg/dL Est Cr Clr Drug Dosing 66.68 mL/min Estimated GFR (MDRD) 57.9 ml/min Glucose 146 H (74-106) mg/dL Calcium 8.0 L (8.5-10.1) mg/dL Phosphorus 2.8 (2.6-4.7) mg/dL Magnesium 1.7 L (1.8-2.4) mg/dL Total Bilirubin 0.6 (0.2-1.0) mg/dL AST 79 H (15-37) IU/L ALT 93 H (14-63) IU/L Alkaline Phosphatase 99 (46-116) U/L Total Protein 6.4 (6.4-8.2) g/dL Albumin 2.6 L (3.4-5.0) g/dL Globulin 3.8 (2.6-4.0) g/dL Albumin/Globulin Ratio 0.7 L (0.9-1.6) Yandel Results Last 24 Hours: Microbiology 11/16/20 20:00 C. difficile Antigen & Toxins A,B - Final Stool / Feces 11/16/20 01:52 Aerobic Blood Culture - Preliminary Blood - Venous - Lab Draw Anaerobic Blood Culture - Preliminary 11/16/20 01:46 Aerobic Blood Culture - Preliminary Blood - Venous Anaerobic Blood Culture - Preliminary Med Orders - Current: Current Medications Acetaminophen (Tylenol) 650 mg PO Q6H PRN PRN Reason: Pain/Fever Last Admin: 11/17/20 04:43 Dose: 650 mg Documented by: Folic Acid (Folic Acid) 1 mg PO DAILY [facility] Last Admin: 11/16/20 09:00 Dose: 1 mg Documented by: Heparin Sodium (Porcine) (Heparin Sodium) 5,000 units SUBCUT Q12H [facility] Last Admin: 11/16/20 20:13 Dose: 5,000 units Documented by: Sodium Chloride (Normal Saline) 1,000 mls @ 999 mls/hr IV .BOLUS [facility] Sodium Chloride (Normal Saline) 1,000 mls @ 150 mls/hr IV Q6H [facility] Last Admin: 11/17/20 02:56 Dose: Not Given Documented by: Thiamine HCl 100 mg/ Sodium (Chloride) 101 mls @ 202 mls/hr IV DAILY [facility] Last Admin: 11/16/20 09:09 Dose: 202 mls/hr Documented by: Piperacillin Sod/Tazobactam (Sod 4.5 gm/ Sodium Chloride) 100 mls @ 200 mls/hr IV Q6H [facility] Lorazepam (Ativan) 0 mg IVPUSH Q4H [facility]; Protocol Last Admin: 11/17/20 04:05 Dose: Not Given Documented by: Ondansetron HCl (Zofran) 4 mg IVPUSH Q4H PRN PRN Reason: Nausea Potassium Chloride (Klor-Con M20) 40 meq PO ONETIME ONE Stop: 11/17/20 07:57 Sertraline HCl (Zoloft) 50 mg PO DAILY [facility] Last Admin: 11/16/20 09:08 Dose: 50 mg Documented by: Sodium Chloride (Saline Flush) 10 ml FLUSH ASDIRECTED PRN PRN Reason: Keep Vein Open Last Admin: 11/15/20 18:17 Dose: 10 ml Documented by: Sodium Chloride (Saline Flush) 2.5 ml FLUSH ASDIRECTED PRN PRN Reason: Keep Vein Open Last Admin: 11/15/20 18:17 Dose: 2.5 ml Documented by: Sodium Phosphate (Neutra-Phos) 250 mg PO QID [facility] Last Admin: 11/17/20 05:47 Dose: 250 mg Documented by: Discontinued Medications Diazepam (Valium) 5 mg IVPUSH BID [facility] Last Admin: 11/15/20 23:04 Dose: Not Given Documented by: Diazepam (Valium.) 5 mg PO BID [facility] Last Admin: 11/16/20 09:08 Dose: 5 mg Documented by: Diazepam (Valium) 5 mg IV DAILY [facility] Sodium Chloride (Normal Saline) 1,000 mls @ 999 mls/hr IV .Bolus ONE Stop: 11/15/20 17:40 Last Infusion: 11/15/20 18:16 Dose: 250 mls/hr Documented by: Multivitamins/Minerals 10 ml/Thiamine HCl 100 mg/ Folic Acid 1 mg/ Sodium Chloride 1,011.2 mls @ 999 mls/hr IV ONETIME ONE Stop: 11/15/20 18:15 Last Infusion: 11/15/20 18:17 Dose: 250 mls/hr Documented by: Magnesium Sulfate (Magnesium Sulfate In Water 2 Gm/50 Ml) 2 gm in 50 mls @ 50 mls/hr IV ONETIME [facility] Last Admin: 11/15/20 20:30 Dose: 50 mls/hr Documented by: Sodium Chloride (Normal Saline) 1,000 mls @ 999 mls/hr IV STAT ONE Stop: 11/15/20 21:25 Last Admin: 11/15/20 22:41 Dose: 999 mls/hr Documented by: Thiamine HCl 100 mg/ Sodium (Chloride) 101 mls @ 202 mls/hr IV DAILY ONE Stop: 11/15/20 20:28 Last Admin: 11/15/20 23:16 Dose: Not Given Documented by: Sodium Chloride (Normal Saline) 1,000 mls @ 150 mls/hr IV CONTINUOUS [facility] Potassium Chloride 40 meq/ (Dextrose/Water) 1,020 mls @ 125 mls/hr IV ASDIRECTED [facility] Potassium Chloride/Sodium Chloride (Normal Saline With 40 Meq Kcl) 1,000 mls @ 125 mls/hr IV ASDIRECTED [facility] Stop: 11/16/20 09:00 Last Admin: 11/15/20 23:52 Dose: 125 mls/hr Documented by: Magnesium Sulfate (Magnesium Sulfate In Water 2 Gm/50 Ml) 2 gm in 50 mls @ 50 mls/hr IV ONETIME [facility] Last Admin: 11/15/20 23:31 Dose: 50 mls/hr Documented by: Ceftriaxone Sodium/Dextrose 1 (gm/ Premix) 50 mls @ 100 mls/hr IV Q24H [facility] Last Admin: 11/16/20 02:01 Dose: 100 mls/hr Documented by: Ceftriaxone Sodium/Dextrose 2 (gm/ Premix) 50 mls @ 100 mls/hr IV Q24H [facility] Ceftriaxone Sodium/Dextrose 1 (gm/ Premix) 50 mls @ 100 mls/hr IV ONETIME ONE Stop: 11/16/20 12:59 Last Admin: 11/16/20 13:17 Dose: Not Given Documented by: Ceftriaxone Sodium/Dextrose 1 (gm/ Premix) 50 mls @ 100 mls/hr IV ONETIME ONE Stop: 11/16/20 13:14 Last Admin: 11/16/20 13:08 Dose: 100 mls/hr Documented by: Piperacillin Sod/Tazobactam (Sod 3.375 gm/ Sodium Chloride) 50 mls @ 100 mls/hr IV Q6H [facility] Last Admin: 11/17/20 04:01 Dose: 100 mls/hr Documented by: Lactated Ringer's (Ringers, Lactated) 1,000 mls @ 999 mls/hr IV .BOLUS ONE Stop: 11/16/20 17:45 Last Admin: 11/16/20 17:30 Dose: 999 mls/hr Documented by: Influenza Virus Vaccine (Pharmacy To Dose - Influenza Vaccine) 1 each IM ONETIME ONE Stop: 11/16/20 09:01 Influenza Virus Vaccine (Fluzone Quad Syringe) 60 mcg IM .ONCE ONE Stop: 11/16/20 09:01 Loperamide HCl (Imodium) 2 mg PO ONETIME ONE Stop: 11/16/20 22:56 Last Admin: 11/16/20 23:13 Dose: 2 mg Documented by: Lorazepam (Ativan) 2 mg IVPUSH ONETIME ONE Stop: 11/15/20 16:51 Last Admin: 11/15/20 18:17 Dose: 2 mg Documented by: Potassium Chloride (Klor-Con M20) 40 meq PO ONETIME ONE Stop: 11/15/20 20:27 Last Admin: 11/15/20 23:04 Dose: Not Given Documented by: Potassium Chloride (Potassium Chloride) 40 meq PO ONETIME ONE Stop: 11/15/20 22:37 Last Admin: 11/15/20 23:05 Dose: Not Given Documented by: Potassium Chloride (Klor-Con M20) 40 meq PO ONETIME ONE Stop: 11/15/20 22:48 Last Admin: 11/15/20 23:44 Dose: 40 meq Documented by: Potassium Chloride (Klor-Con M20) 40 meq PO ONETIME ONE Stop: 11/16/20 08:16 Last Admin: 11/16/20 09:07 Dose: 40 meq Documented by: - Exam Quality Assessment: No: Supplemental Oxygen General: Alert, Oriented, No Acute Distress HEENT: EOMI, Mucous Membr. Moist/[place] Neck: Supple Lungs: Normal Respiratory Effort, Other (minimal wheeze noted on expiration ) Cardiovascular: Regular Rate, Regular Rhythm GI/Abdominal Exam: Soft, Non-Tender Extremities: Normal Inspection Neurological: No New Focal Deficit Psy/Mental Status: Alert, Normal Affect, Normal Mood Sepsis Event Note - Evaluation Sepsis Screening Result: No Definite Risk - Focused Exam Vital Signs: Vital Signs Temp Pulse Resp BP Pulse Ox 11/17/20 03:58 99.1 F 98 20 154/80 H 97 11/16/20 23:10 100.0 F 97 20 139/77 99 11/16/20 20:09 98.4 F 79 20 127/75 97 - Problem List & Annotations (1) Alcohol withdrawal SNOMED Code(s): 881559292 Code(s): F10.239 - ALCOHOL DEPENDENCE WITH WITHDRAWAL, UNSPECIFIED Status: Acute (2) Hypomagnesemia SNOMED Code(s): 588419013 Code(s): E83.42 - HYPOMAGNESEMIA Status: Acute (3) Hypokalemia SNOMED Code(s): 26206724 Code(s): E87.6 - HYPOKALEMIA Status: Acute (4) Hypophosphatemia SNOMED Code(s): 2411849 Code(s): E83.39 - OTHER DISORDERS OF PHOSPHORUS METABOLISM Status: Acute (5) Lactic acidosis SNOMED Code(s): 14385762 Code(s): E87.2 - ACIDOSIS Status: Acute - Problem List Review Problem List Initiated/Reviewed/Updated: Yes - My Orders Last 24 Hours: My Active Orders 11/16/20 09:00 Folic Acid 1 mg PO DAILY Sertraline [Zoloft] 50 mg PO DAILY Sodium Chloride 0.9% [Normal Saline] 1,000 ml IV Q6H Thiamine [Vitamin B-1] 100 mg Sodium Chloride 0.9% [Normal Saline] 100 ml IV DAILY 11/16/20 11:42 Blood Culture x2 Reflex Set [OM.PC] Stat 11/16/20 12:07 CULTURE BLOOD [BC] Stat 11/17/20 07:56 Potassium Chloride [Klor-Con M20] 40 meq PO ONETIME ONE 11/17/20 07:57 HIV12 AG/AB 4TH GEN W/REFLEX [CHEM] Routine 11/17/20 08:00 Magnesium Sulfate/Water [Magnesium Sulfate in Water 2 GM/50 ML] 2 gm in 50 ml IV ONETIME 11/17/20 20:30 PHOSPHORUS [CHEM] DAILY 11/18/20 05:11 CBC WITH AUTO DIFF [HEME] AM COMPREHENSIVE METABOLIC PN,CMP [CHEM] AM MAGNESIUM [CHEM] AM - Plan Plan:: Assessment: 1. Acute alcohol withdrawal :improving 2. Alcohol use disorder 3. Acute pyelonephritics 4. Elevated lactate : resolved 5. Hypokalemia 6. JENNIFER 7. Hypophosphatemia 8. Hypomagnesemia 9. transaminitis 10. hCG negative 11. COVID positive 12. Gram negative rods Bacteremia Plan 1. Alcohol withdrawal: Initiate CIWA/Ativan protocol. Continue daily thiamine/folic acid. Replete electrolytes as needed. We will continue to monitor. Last alcoholic drink on Wednesday, November 11, 2020 Discontinue Diazepam Significant electrolyte disturbances: improving ; replete PRN Continue to monitor on telemetry JENNIFER: stable/improving Diarrhea: Loperamide ordered; Cdiff negative; awaiting other stool studies. Hold sertraline as patient states this happens with her Sertraline. 2. Gram negative Rods bacteremia secondary to acute pyelonephritis: switched to Zosyn to 4.5; monitor for response ; can consider escalating if not improving in AM 3. COVID positive: currently not hypoxic, on room air; no overt signs of respiratory distress. Continue to monitor. Not a candidate for BAM treatment <Sonya Barnes - Last Filed: 11/18/20 14:39> - Patient Data Vitals - Most Recent: Last Vital Signs Temp 36.4 C 11/18/20 08:21 Pulse 84 11/18/20 08:21 Resp 16 11/18/20 08:21 BP 159/100 H 11/18/20 08:21 Pulse Ox 97 11/18/20 08:21 I&O - Last 24 Hours: Intake & Output 11/17/20 11/18/20 11/18/20 22:59 06:59 14:59 Intake Total 3104 3376 Output Total 850 1520 Balance 2254 3296 Lab Results Last 24 Hours: Laboratory Results - last 24 hr 11/17/20 11/18/20 11/18/20 Range/Units 23:00 06:20 06:20 WBC 10.13 (4.0-11.0) K/uL RBC 3.99 L (4.30-5.90) M/uL Hgb 12.3 (12.0-16.0) g/dL Hct 37.6 (36.0-46.0) % MCV 94.2 (80.0-98.0) fL MCH 30.8 (27.0-32.0) pg MCHC 32.7 (31.0-37.0) g/dL RDW Std Deviation 52.0 (28.0-62.0) fl RDW Coeff of Oleksandr 15 (11.0-15.0) % Plt Count 92 L (150-400) K/uL MPV 12.60 H (7.40-12.00) fL Neut % (Auto) 78.5 (48.0-80.0) % Lymph % (Auto) 12.5 L (16.0-40.0) % White % (Auto) 7.3 (0.0-15.0) % Eos % (Auto) 1.6 (0.0-7.0) % Baso % (Auto) 0.1 (0.0-1.5) % Neut # (Auto) 8.0 H (1.4-5.7) K/uL Lymph # (Auto) 1.3 (0.6-2.4) K/uL White # (Auto) 0.7 (0.0-0.8) K/uL Eos # (Auto) 0.2 (0.0-0.7) K/uL Baso # (Auto) 0.0 (0.0-0.1) K/uL Nucleated RBC % 0.0 /100WBC Nucleated RBCs # 0 K/uL Sodium 140 (136-145) mmol/L Potassium 4.0 (3.5-5.1) mmol/L Chloride 107 (98-107) mmol/L Carbon Dioxide 23.0 (21.0-32.0) mmol/L BUN 7 (7.0-18.0) mg/dL Creatinine 1.1 H (0.6-1.0) mg/dL Est Cr Clr Drug Dosing 66.68 mL/min Estimated GFR (MDRD) 57.9 ml/min Glucose 109 H (74-106) mg/dL Calcium 8.3 L (8.5-10.1) mg/dL Phosphorus 2.5 L (2.6-4.7) mg/dL Magnesium 1.9 (1.8-2.4) mg/dL Total Bilirubin 0.7 (0.2-1.0) mg/dL AST 71 H (15-37) IU/L ALT 91 H (14-63) IU/L Alkaline Phosphatase 95 (46-116) U/L Total Protein 6.7 (6.4-8.2) g/dL Albumin 2.4 L (3.4-5.0) g/dL Globulin 4.3 H (2.6-4.0) g/dL Albumin/Globulin Ratio 0.6 L (0.9-1.6) Yandel Results Last 24 Hours: Microbiology 11/16/20 12:07 Aerobic Blood Culture - Preliminary Blood - Venous NO GROWTH AFTER 2 DAYS Anaerobic Blood Culture - Preliminary NO GROWTH AFTER 2 DAYS 11/16/20 20:00 Shiga Toxin I & II - Final Stool / Feces 11/16/20 01:46 Aerobic Blood Culture - Final Blood - Venous Escherichia Coli Anaerobic Blood Culture - Final 11/16/20 01:52 Aerobic Blood Culture - Final Blood - Venous - Lab Draw Anaerobic Blood Culture - Final 11/15/20 21:45 Urine Culture - Final Urine, Clean Catch Escherichia Coli Med Orders - Current: Current Medications Discontinued Medications Acetaminophen (Tylenol) 650 mg PO Q6H PRN PRN Reason: Pain/Fever Last Admin: 11/18/20 12:28 Dose: 650 mg Documented by: Diazepam (Valium) 5 mg IVPUSH BID [facility] Last Admin: 11/15/20 23:04 Dose: Not Given Documented by: Diazepam (Valium.) 5 mg PO BID [facility] Last Admin: 11/16/20 09:08 Dose: 5 mg Documented by: Diazepam (Valium) 5 mg IV DAILY [facility] Folic Acid (Folic Acid) 1 mg PO DAILY [facility] Last Admin: 11/18/20 08:24 Dose: 1 mg Documented by: Heparin Sodium (Porcine) (Heparin Sodium) 5,000 units SUBCUT Q12H [facility] Last Admin: 11/18/20 08:24 Dose: 5,000 units Documented by: Sodium Chloride (Normal Saline) 1,000 mls @ 999 mls/hr IV .Bolus ONE Stop: 11/15/20 17:40 Last Infusion: 11/15/20 18:16 Dose: 250 mls/hr Documented by: Sodium Chloride (Normal Saline) 1,000 mls @ 999 mls/hr IV .BOLUS [facility] Multivitamins/Minerals 10 ml/Thiamine HCl 100 mg/ Folic Acid 1 mg/ Sodium Chloride 1,011.2 mls @ 999 mls/hr IV ONETIME ONE Stop: 11/15/20 18:15 Last Infusion: 11/15/20 18:17 Dose: 250 mls/hr Documented by: Magnesium Sulfate (Magnesium Sulfate In Water 2 Gm/50 Ml) 2 gm in 50 mls @ 50 mls/hr IV ONETIME [facility] Last Admin: 11/15/20 20:30 Dose: 50 mls/hr Documented by: Sodium Chloride (Normal Saline) 1,000 mls @ 999 mls/hr IV STAT ONE Stop: 11/15/20 21:25 Last Admin: 11/15/20 22:41 Dose: 999 mls/hr Documented by: Thiamine HCl 100 mg/ Sodium (Chloride) 101 mls @ 202 mls/hr IV DAILY ONE Stop: 11/15/20 20:28 Last Admin: 11/15/20 23:16 Dose: Not Given Documented by: Sodium Chloride (Normal Saline) 1,000 mls @ 150 mls/hr IV CONTINUOUS [facility] Potassium Chloride 40 meq/ (Dextrose/Water) 1,020 mls @ 125 mls/hr IV ASDIRECTED [facility] Potassium Chloride/Sodium Chloride (Normal Saline With 40 Meq Kcl) 1,000 mls @ 125 mls/hr IV ASDIRECTED [facility] Stop: 11/16/20 09:00 Last Admin: 11/15/20 23:52 Dose: 125 mls/hr Documented by: Magnesium Sulfate (Magnesium Sulfate In Water 2 Gm/50 Ml) 2 gm in 50 mls @ 50 mls/hr IV ONETIME [facility] Last Admin: 11/15/20 23:31 Dose: 50 mls/hr Documented by: Ceftriaxone Sodium/Dextrose 1 (gm/ Premix) 50 mls @ 100 mls/hr IV Q24H [facility] Last Admin: 11/16/20 02:01 Dose: 100 mls/hr Documented by: Sodium Chloride (Normal Saline) 1,000 mls @ 150 mls/hr IV Q6H [facility] Last Admin: 11/18/20 10:11 Dose: Not Given Documented by: Thiamine HCl 100 mg/ Sodium (Chloride) 101 mls @ 202 mls/hr IV DAILY [facility] Last Admin: 11/18/20 08:59 Dose: 202 mls/hr Documented by: Ceftriaxone Sodium/Dextrose 2 (gm/ Premix) 50 mls @ 100 mls/hr IV Q24H [facility] Ceftriaxone Sodium/Dextrose 1 (gm/ Premix) 50 mls @ 100 mls/hr IV ONETIME ONE Stop: 11/16/20 12:59 Last Admin: 11/16/20 13:17 Dose: Not Given Documented by: Ceftriaxone Sodium/Dextrose 1 (gm/ Premix) 50 mls @ 100 mls/hr IV ONETIME ONE Stop: 11/16/20 13:14 Last Admin: 11/16/20 13:08 Dose: 100 mls/hr Documented by: Piperacillin Sod/Tazobactam (Sod 3.375 gm/ Sodium Chloride) 50 mls @ 100 mls/hr IV Q6H [facility] Last Admin: 11/17/20 04:01 Dose: 100 mls/hr Documented by: Lactated Ringer's (Ringers, Lactated) 1,000 mls @ 999 mls/hr IV .BOLUS ONE Stop: 11/16/20 17:45 Last Admin: 11/16/20 17:30 Dose: 999 mls/hr Documented by: Piperacillin Sod/Tazobactam (Sod 4.5 gm/ Sodium Chloride) 100 mls @ 200 mls/hr IV Q6H [facility] Last Admin: 11/18/20 10:09 Dose: 200 mls/hr Documented by: Magnesium Sulfate (Magnesium Sulfate In Water 2 Gm/50 Ml) 2 gm in 50 mls @ 50 mls/hr IV ONETIME ONE Stop: 11/17/20 23:29 Last Admin: 11/17/20 22:30 Dose: 50 mls/hr Documented by: Influenza Virus Vaccine (Pharmacy To Dose - Influenza Vaccine) 1 each IM ONETIME ONE Stop: 11/16/20 09:01 Influenza Virus Vaccine (Fluzone Quad 8971-0009 Syringe) 60 mcg IM .ONCE ONE Stop: 11/16/20 09:01 Loperamide HCl (Imodium) 2 mg PO ONETIME ONE Stop: 11/16/20 22:56 Last Admin: 11/16/20 23:13 Dose: 2 mg Documented by: Loperamide HCl (Imodium) 2 mg PO ASDIRECTED PRN PRN Reason: Diarrhea Last Admin: 11/18/20 12:14 Dose: 2 mg Documented by: Lorazepam (Ativan) 2 mg IVPUSH ONETIME ONE Stop: 11/15/20 16:51 Last Admin: 11/15/20 18:17 Dose: 2 mg Documented by: Lorazepam (Ativan) 0 mg IVPUSH Q4H [facility]; Protocol Last Admin: 11/18/20 00:22 Dose: Not Given Documented by: Lorazepam (Ativan) 0 mg IVPUSH Q4H PRN; Protocol PRN Reason: Other Ondansetron HCl (Zofran) 4 mg IVPUSH Q4H PRN PRN Reason: Nausea Potassium Chloride (Klor-Con M20) 40 meq PO ONETIME ONE Stop: 11/15/20 20:27 Last Admin: 11/15/20 23:04 Dose: Not Given Documented by: Potassium Chloride (Potassium Chloride) 40 meq PO ONETIME ONE Stop: 11/15/20 22:37 Last Admin: 11/15/20 23:05 Dose: Not Given Documented by: Potassium Chloride (Klor-Con M20) 40 meq PO ONETIME ONE Stop: 11/15/20 22:48 Last Admin: 11/15/20 23:44 Dose: 40 meq Documented by: Potassium Chloride (Klor-Con M20) 40 meq PO ONETIME ONE Stop: 11/16/20 08:16 Last Admin: 11/16/20 09:07 Dose: 40 meq Documented by: Potassium Chloride (Klor-Con M20) 40 meq PO ONETIME ONE Stop: 11/17/20 07:57 Last Admin: 11/17/20 08:54 Dose: 40 meq Documented by: Sertraline HCl (Zoloft) 50 mg PO DAILY [facility] Last Admin: 11/17/20 08:15 Dose: 50 mg Documented by: Sertraline HCl (Zoloft) 25 mg PO DAILY [facility] Last Admin: 11/17/20 09:44 Dose: Not Given Documented by: Sodium Chloride (Saline Flush) 10 ml FLUSH ASDIRECTED PRN PRN Reason: Keep Vein Open Last Admin: 11/15/20 18:17 Dose: 10 ml Documented by: Sodium Chloride (Saline Flush) 2.5 ml FLUSH ASDIRECTED PRN PRN Reason: Keep Vein Open Last Admin: 11/15/20 18:17 Dose: 2.5 ml Documented by: Sodium Phosphate (Neutra-Phos) 250 mg PO QID [facility] Last Admin: 11/18/20 11:51 Dose: 250 mg Documented by: Sepsis Event Note - Focused Exam Vital Signs: Vital Signs Temp Pulse Resp BP Pulse Ox 11/18/20 08:21 36.4 C 84 16 159/100 H 97 11/18/20 03:23 37.1 C 98 16 144/93 H 100 - Plan Plan:: I have seen and evaluated the patient and agree with the residents note unless specified in my note
[2020-11-17] MEDS: Folic Acid 1 MG Tab PO SCH (08:15)
[2020-11-17] MEDS: Heparin Sodium 5,000 Units/ML Vial SUBCUT SCH ×2 (08:15→21:00)
[2020-11-17] MEDS: Sertraline 50 MG Tab PO SCH (08:15)
[2020-11-17] MEDS: Thiamine 100 MG in Sodium Chloride 0.9% 100 ML IV SCH (08:17)
[2020-11-17] MEDS ORDERED: Sertraline 50 MG Tab PO SCH (09:00)
[2020-11-17] MEDS: Piperacillin/Tazobactam 4.5 GM in Sodium Chloride 0.9% 100 ML IV SCH ×3 (09:44→20:59)
[2020-11-17] MEDS ORDERED: cefTRIAXone 2 GM in Premix Bag 1 BAG IV SCH (12:00)
[2020-11-17] MEDS: Loperamide 2 MG Cap PO PRN (19:54)
[2020-11-17] MEDS ORDERED: Magnesium Sulfate/Water 2 GM/50 ML BAG IV ONE (22:30)
[2020-11-18] MEDS ORDERED: LORazepam 2 MG/ML SDV IVPUSH PRN (00:14)
[2020-11-18] MEDS: LORazepam 2 MG/ML SDV IVPUSH SCH (00:22)
[2020-11-18] MEDS: Sodium Chloride 0.9% 1,000 ML IV SCH ×3 (03:13→10:11)
[2020-11-18] MEDS: Piperacillin/Tazobactam 4.5 GM in Sodium Chloride 0.9% 100 ML IV SCH ×2 (03:35→10:09)
[2020-11-18] MEDS: Phosphorus #1 250 MG Tab PO SCH ×2 (06:03→11:51)
[2020-11-18] MEDS: Acetaminophen 325 MG Tab PO PRN ×2 (06:16→12:28)
[2020-11-18] MEDS: Heparin Sodium 5,000 Units/ML Vial SUBCUT SCH (08:24)
[2020-11-18] MEDS: Folic Acid 1 MG Tab PO SCH (08:24)
[2020-11-18] MEDS: Loperamide 2 MG Cap PO PRN ×2 (08:24→12:14)
[2020-11-18] MEDS: Thiamine 100 MG in Sodium Chloride 0.9% 100 ML IV SCH (08:59)
--- NOTE | 2020-11-18 09:05 | PCM.PN ---
<Jf Sanchez - Last Filed: 11/18/20 11:38> - General Info Date of Service: 11/18/20 Subjective Update: Bedside: mentions TRIMBLE continues but responds well to Tylenol. Imodium last night helped but has had 2-3 episodes of soft , not watery, stools this AM. Otherwise endorses feeling better. - Review of Systems General: Reports: No Symptoms HEENT: Reports: No Symptoms Pulmonary: Reports: No Symptoms Cardiovascular: Reports: No Symptoms Gastrointestinal: Reports: Diarrhea. Denies: Nausea, Vomiting Genitourinary: Reports: No Symptoms Musculoskeletal: Reports: Back Pain Neurological: Reports: Headache - Patient Data Vitals - Most Recent: Last Vital Signs Temp 97.5 F 11/18/20 08:21 Pulse 84 11/18/20 08:21 Resp 16 11/18/20 08:21 BP 159/100 H 11/18/20 08:21 Pulse Ox 97 11/18/20 08:21 Weight - Most Recent: 124.103 kg I&O - Last 24 Hours: Intake & Output 11/17/20 11/18/20 11/18/20 22:59 06:59 14:59 Intake Total 3104 3376 Output Total 850 1520 Balance 2254 1856 Lab Results Last 24 Hours: Laboratory Results - last 24 hr 11/16/20 11/17/20 11/18/20 Range/Units 05:24 23:00 06:20 WBC 10.13 (4.0-11.0) K/uL RBC 3.99 L (4.30-5.90) M/uL Hgb 12.3 (12.0-16.0) g/dL Hct 37.6 (36.0-46.0) % MCV 94.2 (80.0-98.0) fL MCH 30.8 (27.0-32.0) pg MCHC 32.7 (31.0-37.0) g/dL RDW Std Deviation 52.0 (28.0-62.0) fl RDW Coeff of Oleksandr 15 (11.0-15.0) % Plt Count 92 L (150-400) K/uL MPV 12.60 H (7.40-12.00) fL Neut % (Auto) 78.5 (48.0-80.0) % Lymph % (Auto) 12.5 L (16.0-40.0) % Lynn % (Auto) 7.3 (0.0-15.0) % Eos % (Auto) 1.6 (0.0-7.0) % Baso % (Auto) 0.1 (0.0-1.5) % Neut # (Auto) 8.0 H (1.4-5.7) K/uL Lymph # (Auto) 1.3 (0.6-2.4) K/uL Lynn # (Auto) 0.7 (0.0-0.8) K/uL Eos # (Auto) 0.2 (0.0-0.7) K/uL Baso # (Auto) 0.0 (0.0-0.1) K/uL Nucleated RBC % 0.0 /100WBC Nucleated RBCs # 0 K/uL Sodium (136-145) mmol/L Potassium (3.5-5.1) mmol/L Chloride (98-107) mmol/L Carbon Dioxide (21.0-32.0) mmol/L BUN (7.0-18.0) mg/dL Creatinine (0.6-1.0) mg/dL Est Cr Clr Drug Dosing mL/min Estimated GFR (MDRD) ml/min Glucose (74-106) mg/dL Calcium (8.5-10.1) mg/dL Phosphorus 2.5 L (2.6-4.7) mg/dL Magnesium (1.8-2.4) mg/dL Total Bilirubin (0.2-1.0) mg/dL AST (15-37) IU/L ALT (14-63) IU/L Alkaline Phosphatase (46-116) U/L Total Protein (6.4-8.2) g/dL Albumin (3.4-5.0) g/dL Globulin (2.6-4.0) g/dL Albumin/Globulin Ratio (0.9-1.6) HIV 1&2 Ag/Ab, 4th Gen 0.1 (<1.0) INDEX 11/18/20 Range/Units 06:20 WBC (4.0-11.0) K/uL RBC (4.30-5.90) M/uL Hgb (12.0-16.0) g/dL Hct (36.0-46.0) % MCV (80.0-98.0) fL MCH (27.0-32.0) pg MCHC (31.0-37.0) g/dL RDW Std Deviation (28.0-62.0) fl RDW Coeff of Oleksandr (11.0-15.0) % Plt Count (150-400) K/uL MPV (7.40-12.00) fL Neut % (Auto) (48.0-80.0) % Lymph % (Auto) (16.0-40.0) % Lynn % (Auto) (0.0-15.0) % Eos % (Auto) (0.0-7.0) % Baso % (Auto) (0.0-1.5) % Neut # (Auto) (1.4-5.7) K/uL Lymph # (Auto) (0.6-2.4) K/uL Lynn # (Auto) (0.0-0.8) K/uL Eos # (Auto) (0.0-0.7) K/uL Baso # (Auto) (0.0-0.1) K/uL Nucleated RBC % /100WBC Nucleated RBCs # K/uL Sodium 140 (136-145) mmol/L Potassium 4.0 (3.5-5.1) mmol/L Chloride 107 (98-107) mmol/L Carbon Dioxide 23.0 (21.0-32.0) mmol/L BUN 7 (7.0-18.0) mg/dL Creatinine 1.1 H (0.6-1.0) mg/dL Est Cr Clr Drug Dosing 66.68 mL/min Estimated GFR (MDRD) 57.9 ml/min Glucose 109 H (74-106) mg/dL Calcium 8.3 L (8.5-10.1) mg/dL Phosphorus (2.6-4.7) mg/dL Magnesium 1.9 (1.8-2.4) mg/dL Total Bilirubin 0.7 (0.2-1.0) mg/dL AST 71 H (15-37) IU/L ALT 91 H (14-63) IU/L Alkaline Phosphatase 95 (46-116) U/L Total Protein 6.7 (6.4-8.2) g/dL Albumin 2.4 L (3.4-5.0) g/dL Globulin 4.3 H (2.6-4.0) g/dL Albumin/Globulin Ratio 0.6 L (0.9-1.6) HIV 1&2 Ag/Ab, 4th Gen (<1.0) INDEX Yandel Results Last 24 Hours: Microbiology 11/16/20 20:00 Shiga Toxin I & II - Final Stool / Feces 11/16/20 01:46 Aerobic Blood Culture - Final Blood - Venous Escherichia Coli Anaerobic Blood Culture - Final 11/16/20 01:52 Aerobic Blood Culture - Final Blood - Venous - Lab Draw Anaerobic Blood Culture - Final 11/15/20 21:45 Urine Culture - Final Urine, Clean Catch Escherichia Coli 11/16/20 12:07 Aerobic Blood Culture - Preliminary Blood - Venous NO GROWTH AFTER 1 DAY Anaerobic Blood Culture - Preliminary NO GROWTH AFTER 1 DAY Med Orders - Current: Current Medications Acetaminophen (Tylenol) 650 mg PO Q6H PRN PRN Reason: Pain/Fever Last Admin: 11/18/20 06:16 Dose: 650 mg Documented by: Folic Acid (Folic Acid) 1 mg PO DAILY [facility] Last Admin: 11/18/20 08:24 Dose: 1 mg Documented by: Heparin Sodium (Porcine) (Heparin Sodium) 5,000 units SUBCUT Q12H [facility] Last Admin: 11/18/20 08:24 Dose: 5,000 units Documented by: Sodium Chloride (Normal Saline) 1,000 mls @ 999 mls/hr IV .BOLUS [facility] Sodium Chloride (Normal Saline) 1,000 mls @ 150 mls/hr IV Q6H [facility] Last Admin: 11/18/20 06:56 Dose: 150 mls/hr Documented by: Thiamine HCl 100 mg/ Sodium (Chloride) 101 mls @ 202 mls/hr IV DAILY [facility] Last Admin: 11/18/20 08:59 Dose: 202 mls/hr Documented by: Piperacillin Sod/Tazobactam (Sod 4.5 gm/ Sodium Chloride) 100 mls @ 200 mls/hr IV Q6H [facility] Last Admin: 11/18/20 03:35 Dose: 200 mls/hr Documented by: Loperamide HCl (Imodium) 2 mg PO ASDIRECTED PRN PRN Reason: Diarrhea Last Admin: 11/18/20 08:24 Dose: 2 mg Documented by: Lorazepam (Ativan) 0 mg IVPUSH Q4H PRN; Protocol PRN Reason: Other Ondansetron HCl (Zofran) 4 mg IVPUSH Q4H PRN PRN Reason: Nausea Sodium Chloride (Saline Flush) 10 ml FLUSH ASDIRECTED PRN PRN Reason: Keep Vein Open Last Admin: 11/15/20 18:17 Dose: 10 ml Documented by: Sodium Chloride (Saline Flush) 2.5 ml FLUSH ASDIRECTED PRN PRN Reason: Keep Vein Open Last Admin: 11/15/20 18:17 Dose: 2.5 ml Documented by: Sodium Phosphate (Neutra-Phos) 250 mg PO QID [facility] Last Admin: 11/18/20 06:03 Dose: 250 mg Documented by: Discontinued Medications Diazepam (Valium) 5 mg IVPUSH BID [facility] Last Admin: 11/15/20 23:04 Dose: Not Given Documented by: Diazepam (Valium.) 5 mg PO BID [facility] Last Admin: 11/16/20 09:08 Dose: 5 mg Documented by: Diazepam (Valium) 5 mg IV DAILY [facility] Sodium Chloride (Normal Saline) 1,000 mls @ 999 mls/hr IV .Bolus ONE Stop: 11/15/20 17:40 Last Infusion: 11/15/20 18:16 Dose: 250 mls/hr Documented by: Multivitamins/Minerals 10 ml/Thiamine HCl 100 mg/ Folic Acid 1 mg/ Sodium Chloride 1,011.2 mls @ 999 mls/hr IV ONETIME ONE Stop: 11/15/20 18:15 Last Infusion: 11/15/20 18:17 Dose: 250 mls/hr Documented by: Magnesium Sulfate (Magnesium Sulfate In Water 2 Gm/50 Ml) 2 gm in 50 mls @ 50 mls/hr IV ONETIME [facility] Last Admin: 11/15/20 20:30 Dose: 50 mls/hr Documented by: Sodium Chloride (Normal Saline) 1,000 mls @ 999 mls/hr IV STAT ONE Stop: 11/15/20 21:25 Last Admin: 11/15/20 22:41 Dose: 999 mls/hr Documented by: Thiamine HCl 100 mg/ Sodium (Chloride) 101 mls @ 202 mls/hr IV DAILY ONE Stop: 11/15/20 20:28 Last Admin: 11/15/20 23:16 Dose: Not Given Documented by: Sodium Chloride (Normal Saline) 1,000 mls @ 150 mls/hr IV CONTINUOUS [facility] Potassium Chloride 40 meq/ (Dextrose/Water) 1,020 mls @ 125 mls/hr IV ASDIRECTED [facility] Potassium Chloride/Sodium Chloride (Normal Saline With 40 Meq Kcl) 1,000 mls @ 125 mls/hr IV ASDIRECTED [facility] Stop: 11/16/20 09:00 Last Admin: 11/15/20 23:52 Dose: 125 mls/hr Documented by: Magnesium Sulfate (Magnesium Sulfate In Water 2 Gm/50 Ml) 2 gm in 50 mls @ 50 mls/hr IV ONETIME [facility] Last Admin: 11/15/20 23:31 Dose: 50 mls/hr Documented by: Ceftriaxone Sodium/Dextrose 1 (gm/ Premix) 50 mls @ 100 mls/hr IV Q24H [facility] Last Admin: 11/16/20 02:01 Dose: 100 mls/hr Documented by: Ceftriaxone Sodium/Dextrose 2 (gm/ Premix) 50 mls @ 100 mls/hr IV Q24H [facility] Ceftriaxone Sodium/Dextrose 1 (gm/ Premix) 50 mls @ 100 mls/hr IV ONETIME ONE Stop: 11/16/20 12:59 Last Admin: 11/16/20 13:17 Dose: Not Given Documented by: Ceftriaxone Sodium/Dextrose 1 (gm/ Premix) 50 mls @ 100 mls/hr IV ONETIME ONE Stop: 11/16/20 13:14 Last Admin: 11/16/20 13:08 Dose: 100 mls/hr Documented by: Piperacillin Sod/Tazobactam (Sod 3.375 gm/ Sodium Chloride) 50 mls @ 100 mls/hr IV Q6H [facility] Last Admin: 11/17/20 04:01 Dose: 100 mls/hr Documented by: Lactated Ringer's (Ringers, Lactated) 1,000 mls @ 999 mls/hr IV .BOLUS ONE Stop: 11/16/20 17:45 Last Admin: 11/16/20 17:30 Dose: 999 mls/hr Documented by: Magnesium Sulfate (Magnesium Sulfate In Water 2 Gm/50 Ml) 2 gm in 50 mls @ 50 mls/hr IV ONETIME ONE Stop: 11/17/20 23:29 Last Admin: 11/17/20 22:30 Dose: 50 mls/hr Documented by: Influenza Virus Vaccine (Pharmacy To Dose - Influenza Vaccine) 1 each IM ONETIME ONE Stop: 11/16/20 09:01 Influenza Virus Vaccine (Fluzone Quad Syringe) 60 mcg IM .ONCE ONE Stop: 11/16/20 09:01 Loperamide HCl (Imodium) 2 mg PO ONETIME ONE Stop: 11/16/20 22:56 Last Admin: 11/16/20 23:13 Dose: 2 mg Documented by: Lorazepam (Ativan) 2 mg IVPUSH ONETIME ONE Stop: 11/15/20 16:51 Last Admin: 11/15/20 18:17 Dose: 2 mg Documented by: Lorazepam (Ativan) 0 mg IVPUSH Q4H [facility]; Protocol Last Admin: 11/18/20 00:22 Dose: Not Given Documented by: Potassium Chloride (Klor-Con M20) 40 meq PO ONETIME ONE Stop: 11/15/20 20:27 Last Admin: 11/15/20 23:04 Dose: Not Given Documented by: Potassium Chloride (Potassium Chloride) 40 meq PO ONETIME ONE Stop: 11/15/20 22:37 Last Admin: 11/15/20 23:05 Dose: Not Given Documented by: Potassium Chloride (Klor-Con M20) 40 meq PO ONETIME ONE Stop: 11/15/20 22:48 Last Admin: 11/15/20 23:44 Dose: 40 meq Documented by: Potassium Chloride (Klor-Con M20) 40 meq PO ONETIME ONE Stop: 11/16/20 08:16 Last Admin: 11/16/20 09:07 Dose: 40 meq Documented by: Potassium Chloride (Klor-Con M20) 40 meq PO ONETIME ONE Stop: 11/17/20 07:57 Last Admin: 11/17/20 08:54 Dose: 40 meq Documented by: Sertraline HCl (Zoloft) 50 mg PO DAILY [facility] Last Admin: 11/17/20 08:15 Dose: 50 mg Documented by: Sertraline HCl (Zoloft) 25 mg PO DAILY [facility] Last Admin: 11/17/20 09:44 Dose: Not Given Documented by: - Exam Quality Assessment: No: Supplemental Oxygen General: Alert, Oriented HEENT: EOMI, Mucous Membr. Moist/[place] Neck: Supple Lungs: Clear to Auscultation, Normal Respiratory Effort Cardiovascular: Regular Rate, Regular Rhythm GI/Abdominal Exam: Soft, Non-Tender Extremities: Normal Inspection Neurological: No New Focal Deficit Psy/Mental Status: Alert, Normal Mood Sepsis Event Note - Evaluation Sepsis Screening Result: No Definite Risk - Focused Exam Vital Signs: Vital Signs Temp Pulse Resp BP Pulse Ox 11/18/20 08:21 97.5 F 84 16 159/100 H 97 11/18/20 03:23 98.8 F 98 16 144/93 H 100 11/17/20 23:34 98.8 F 79 16 153/95 H 100 - Problem List & Annotations (1) Alcohol withdrawal SNOMED Code(s): 848024402 Code(s): F10.239 - ALCOHOL DEPENDENCE WITH WITHDRAWAL, UNSPECIFIED Status: Acute (2) Hypomagnesemia SNOMED Code(s): 502813365 Code(s): E83.42 - HYPOMAGNESEMIA Status: Acute (3) Hypokalemia SNOMED Code(s): 32626535 Code(s): E87.6 - HYPOKALEMIA Status: Acute (4) Hypophosphatemia SNOMED Code(s): 4369840 Code(s): E83.39 - OTHER DISORDERS OF PHOSPHORUS METABOLISM Status: Acute (5) Lactic acidosis SNOMED Code(s): 08442396 Code(s): E87.2 - ACIDOSIS Status: Acute - Problem List Review Problem List Initiated/Reviewed/Updated: Yes - Plan Plan:: Assessment: 1. Acute alcohol withdrawal :improving 2. Alcohol use disorder 3. Acute pyelonephritics 4. Elevated lactate : resolved 5. Hypokalemia:resolved 6. JENNIFER 7. Hypophosphatemia 8. Hypomagnesemia 9. transaminitis 10. hCG negative 11. COVID positive 12. Gram negative rods Bacteremia Plan 1. Alcohol withdrawal: . Continue daily thiamine/folic acid. Replete electrolytes as needed. We will continue to monitor. Last alcoholic drink on Friday, November 11, 2020 discontinuing CIWAA/ativan protocol to limit COVID exposure. Significant electrolyte disturbances: improving ; replete PRN Continue to monitor on telemetry JENNIFER: stable; 1.1 Diarrhea: Loperamide ordered; give PRN ; stool caliber improving. Mentions frequency of BM is making her tired and weak; continue to monitor hydration status and continue loperamide Cdiff negative/shiga negative; awaiting other stool studies. Hold sertraline as patient states this happens with her Sertraline. 2. Gram negative Rods bacteremia secondary to acute pyelonephritis: switched to Zosyn to 4.5; good response ; sensitivities returned ; can possibly switch to PO meds ; discharge on Levaquin is an option 3. COVID positive: currently not hypoxic, on room air; no overt signs of respiratory distress. Continue to monitor. Not a candidate for BAM treatment <Sonya Barnes - Last Filed: 11/18/20 14:36> - Patient Data Vitals - Most Recent: Last Vital Signs Temp 36.4 C 11/18/20 08:21 Pulse 84 11/18/20 08:21 Resp 16 11/18/20 08:21 BP 159/100 H 11/18/20 08:21 Pulse Ox 97 11/18/20 08:21 I&O - Last 24 Hours: Intake & Output 11/17/20 11/18/20 11/18/20 22:59 06:59 14:59 Intake Total 3104 3376 Output Total 850 1520 Balance 2254 1856 Lab Results Last 24 Hours: Laboratory Results - last 24 hr 11/17/20 11/18/20 11/18/20 Range/Units 23:00 06:20 06:20 WBC 10.13 (4.0-11.0) K/uL RBC 3.99 L (4.30-5.90) M/uL Hgb 12.3 (12.0-16.0) g/dL Hct 37.6 (36.0-46.0) % MCV 94.2 (80.0-98.0) fL MCH 30.8 (27.0-32.0) pg MCHC 32.7 (31.0-37.0) g/dL RDW Std Deviation 52.0 (28.0-62.0) fl RDW Coeff of Oleksandr 15 (11.0-15.0) % Plt Count 92 L (150-400) K/uL MPV 12.60 H (7.40-12.00) fL Neut % (Auto) 78.5 (48.0-80.0) % Lymph % (Auto) 12.5 L (16.0-40.0) % Lynn % (Auto) 7.3 (0.0-15.0) % Eos % (Auto) 1.6 (0.0-7.0) % Baso % (Auto) 0.1 (0.0-1.5) % Neut # (Auto) 8.0 H (1.4-5.7) K/uL Lymph # (Auto) 1.3 (0.6-2.4) K/uL Lynn # (Auto) 0.7 (0.0-0.8) K/uL Eos # (Auto) 0.2 (0.0-0.7) K/uL Baso # (Auto) 0.0 (0.0-0.1) K/uL Nucleated RBC % 0.0 /100WBC Nucleated RBCs # 0 K/uL Sodium 140 (136-145) mmol/L Potassium 4.0 (3.5-5.1) mmol/L Chloride 107 (98-107) mmol/L Carbon Dioxide 23.0 (21.0-32.0) mmol/L BUN 7 (7.0-18.0) mg/dL Creatinine 1.1 H (0.6-1.0) mg/dL Est Cr Clr Drug Dosing 66.68 mL/min Estimated GFR (MDRD) 57.9 ml/min Glucose 109 H (74-106) mg/dL Calcium 8.3 L (8.5-10.1) mg/dL Phosphorus 2.5 L (2.6-4.7) mg/dL Magnesium 1.9 (1.8-2.4) mg/dL Total Bilirubin 0.7 (0.2-1.0) mg/dL AST 71 H (15-37) IU/L ALT 91 H (14-63) IU/L Alkaline Phosphatase 95 (46-116) U/L Total Protein 6.7 (6.4-8.2) g/dL Albumin 2.4 L (3.4-5.0) g/dL Globulin 4.3 H (2.6-4.0) g/dL Albumin/Globulin Ratio 0.6 L (0.9-1.6) Yandel Results Last 24 Hours: Microbiology 11/16/20 12:07 Aerobic Blood Culture - Preliminary Blood - Venous NO GROWTH AFTER 2 DAYS Anaerobic Blood Culture - Preliminary NO GROWTH AFTER 2 DAYS 11/16/20 20:00 Shiga Toxin I & II - Final Stool / Feces 11/16/20 01:46 Aerobic Blood Culture - Final Blood - Venous Escherichia Coli Anaerobic Blood Culture - Final 11/16/20 01:52 Aerobic Blood Culture - Final Blood - Venous - Lab Draw Anaerobic Blood Culture - Final 11/15/20 21:45 Urine Culture - Final Urine, Clean Catch Escherichia Coli Med Orders - Current: Current Medications Discontinued Medications Acetaminophen (Tylenol) 650 mg PO Q6H PRN PRN Reason: Pain/Fever Last Admin: 11/18/20 12:28 Dose: 650 mg Documented by: Diazepam (Valium) 5 mg IVPUSH BID [facility] Last Admin: 11/15/20 23:04 Dose: Not Given Documented by: Diazepam (Valium.) 5 mg PO BID [facility] Last Admin: 11/16/20 09:08 Dose: 5 mg Documented by: Diazepam (Valium) 5 mg IV DAILY [facility] Folic Acid (Folic Acid) 1 mg PO DAILY [facility] Last Admin: 11/18/20 08:24 Dose: 1 mg Documented by: Heparin Sodium (Porcine) (Heparin Sodium) 5,000 units SUBCUT Q12H [facility] Last Admin: 11/18/20 08:24 Dose: 5,000 units Documented by: Sodium Chloride (Normal Saline) 1,000 mls @ 999 mls/hr IV .Bolus ONE Stop: 11/15/20 17:40 Last Infusion: 11/15/20 18:16 Dose: 250 mls/hr Documented by: Sodium Chloride (Normal Saline) 1,000 mls @ 999 mls/hr IV .BOLUS [facility] Multivitamins/Minerals 10 ml/Thiamine HCl 100 mg/ Folic Acid 1 mg/ Sodium Chloride 1,011.2 mls @ 999 mls/hr IV ONETIME ONE Stop: 11/15/20 18:15 Last Infusion: 11/15/20 18:17 Dose: 250 mls/hr Documented by: Magnesium Sulfate (Magnesium Sulfate In Water 2 Gm/50 Ml) 2 gm in 50 mls @ 50 mls/hr IV ONETIME [facility] Last Admin: 11/15/20 20:30 Dose: 50 mls/hr Documented by: Sodium Chloride (Normal Saline) 1,000 mls @ 999 mls/hr IV STAT ONE Stop: 11/15/20 21:25 Last Admin: 11/15/20 22:41 Dose: 999 mls/hr Documented by: Thiamine HCl 100 mg/ Sodium (Chloride) 101 mls @ 202 mls/hr IV DAILY ONE Stop: 11/15/20 20:28 Last Admin: 11/15/20 23:16 Dose: Not Given Documented by: Sodium Chloride (Normal Saline) 1,000 mls @ 150 mls/hr IV CONTINUOUS [facility] Potassium Chloride 40 meq/ (Dextrose/Water) 1,020 mls @ 125 mls/hr IV ASDIRECTED [facility] Potassium Chloride/Sodium Chloride (Normal Saline With 40 Meq Kcl) 1,000 mls @ 125 mls/hr IV ASDIRECTED [facility] Stop: 11/16/20 09:00 Last Admin: 11/15/20 23:52 Dose: 125 mls/hr Documented by: Magnesium Sulfate (Magnesium Sulfate In Water 2 Gm/50 Ml) 2 gm in 50 mls @ 50 mls/hr IV ONETIME [facility] Last Admin: 11/15/20 23:31 Dose: 50 mls/hr Documented by: Ceftriaxone Sodium/Dextrose 1 (gm/ Premix) 50 mls @ 100 mls/hr IV Q24H [facility] Last Admin: 11/16/20 02:01 Dose: 100 mls/hr Documented by: Sodium Chloride (Normal Saline) 1,000 mls @ 150 mls/hr IV Q6H [facility] Last Admin: 11/18/20 10:11 Dose: Not Given Documented by: Thiamine HCl 100 mg/ Sodium (Chloride) 101 mls @ 202 mls/hr IV DAILY [facility] Last Admin: 11/18/20 08:59 Dose: 202 mls/hr Documented by: Ceftriaxone Sodium/Dextrose 2 (gm/ Premix) 50 mls @ 100 mls/hr IV Q24H [facility] Ceftriaxone Sodium/Dextrose 1 (gm/ Premix) 50 mls @ 100 mls/hr IV ONETIME ONE Stop: 11/16/20 12:59 Last Admin: 11/16/20 13:17 Dose: Not Given Documented by: Ceftriaxone Sodium/Dextrose 1 (gm/ Premix) 50 mls @ 100 mls/hr IV ONETIME ONE Stop: 11/16/20 13:14 Last Admin: 11/16/20 13:08 Dose: 100 mls/hr Documented by: Piperacillin Sod/Tazobactam (Sod 3.375 gm/ Sodium Chloride) 50 mls @ 100 mls/hr IV Q6H [facility] Last Admin: 11/17/20 04:01 Dose: 100 mls/hr Documented by: Lactated Ringer's (Ringers, Lactated) 1,000 mls @ 999 mls/hr IV .BOLUS ONE Stop: 11/16/20 17:45 Last Admin: 11/16/20 17:30 Dose: 999 mls/hr Documented by: Piperacillin Sod/Tazobactam (Sod 4.5 gm/ Sodium Chloride) 100 mls @ 200 mls/hr IV Q6H [facility] Last Admin: 11/18/20 10:09 Dose: 200 mls/hr Documented by: Magnesium Sulfate (Magnesium Sulfate In Water 2 Gm/50 Ml) 2 gm in 50 mls @ 50 mls/hr IV ONETIME ONE Stop: 11/17/20 23:29 Last Admin: 11/17/20 22:30 Dose: 50 mls/hr Documented by: Influenza Virus Vaccine (Pharmacy To Dose - Influenza Vaccine) 1 each IM ONETIME ONE Stop: 11/16/20 09:01 Influenza Virus Vaccine (Fluzone Quad 4243-2500 Syringe) 60 mcg IM .ONCE ONE Stop: 11/16/20 09:01 Loperamide HCl (Imodium) 2 mg PO ONETIME ONE Stop: 11/16/20 22:56 Last Admin: 11/16/20 23:13 Dose: 2 mg Documented by: Loperamide HCl (Imodium) 2 mg PO ASDIRECTED PRN PRN Reason: Diarrhea Last Admin: 11/18/20 12:14 Dose: 2 mg Documented by: Lorazepam (Ativan) 2 mg IVPUSH ONETIME ONE Stop: 11/15/20 16:51 Last Admin: 11/15/20 18:17 Dose: 2 mg Documented by: Lorazepam (Ativan) 0 mg IVPUSH Q4H [facility]; Protocol Last Admin: 11/18/20 00:22 Dose: Not Given Documented by: Lorazepam (Ativan) 0 mg IVPUSH Q4H PRN; Protocol PRN Reason: Other Ondansetron HCl (Zofran) 4 mg IVPUSH Q4H PRN PRN Reason: Nausea Potassium Chloride (Klor-Con M20) 40 meq PO ONETIME ONE Stop: 11/15/20 20:27 Last Admin: 11/15/20 23:04 Dose: Not Given Documented by: Potassium Chloride (Potassium Chloride) 40 meq PO ONETIME ONE Stop: 11/15/20 22:37 Last Admin: 11/15/20 23:05 Dose: Not Given Documented by: Potassium Chloride (Klor-Con M20) 40 meq PO ONETIME ONE Stop: 11/15/20 22:48 Last Admin: 11/15/20 23:44 Dose: 40 meq Documented by: Potassium Chloride (Klor-Con M20) 40 meq PO ONETIME ONE Stop: 11/16/20 08:16 Last Admin: 11/16/20 09:07 Dose: 40 meq Documented by: Potassium Chloride (Klor-Con M20) 40 meq PO ONETIME ONE Stop: 11/17/20 07:57 Last Admin: 11/17/20 08:54 Dose: 40 meq Documented by: Sertraline HCl (Zoloft) 50 mg PO DAILY [facility] Last Admin: 11/17/20 08:15 Dose: 50 mg Documented by: Sertraline HCl (Zoloft) 25 mg PO DAILY [facility] Last Admin: 11/17/20 09:44 Dose: Not Given Documented by: Sodium Chloride (Saline Flush) 10 ml FLUSH ASDIRECTED PRN PRN Reason: Keep Vein Open Last Admin: 11/15/20 18:17 Dose: 10 ml Documented by: Sodium Chloride (Saline Flush) 2.5 ml FLUSH ASDIRECTED PRN PRN Reason: Keep Vein Open Last Admin: 11/15/20 18:17 Dose: 2.5 ml Documented by: Sodium Phosphate (Neutra-Phos) 250 mg PO QID [facility] Last Admin: 11/18/20 11:51 Dose: 250 mg Documented by: Sepsis Event Note - Focused Exam Vital Signs: Vital Signs Temp Pulse Resp BP Pulse Ox 11/18/20 08:21 36.4 C 84 16 159/100 H 97 11/18/20 03:23 37.1 C 98 16 144/93 H 100 - Plan Plan:: I have seen and evaluated the patient and agree with the residents note unless specified in my note
--- NOTE | 2020-11-18 11:26 | PCM.DCSUM1 ---
Discharge Summary - Discharge Data Discharge Disposition: Home, Self-Care 01 Condition: Stable - Referral to Home Health Primary Care Physician: Bernardo Gregg MD - Discharge Diagnosis/Problem(s) (1) Alcohol withdrawal SNOMED Code(s): 863737651 ICD Code: F10.239 - ALCOHOL DEPENDENCE WITH WITHDRAWAL, UNSPECIFIED Status: Acute Current Visit: Yes (2) Hypomagnesemia SNOMED Code(s): 744155332 ICD Code: E83.42 - HYPOMAGNESEMIA Status: Acute Current Visit: Yes (3) Hypokalemia SNOMED Code(s): 31777015 ICD Code: E87.6 - HYPOKALEMIA Status: Acute Current Visit: Yes (4) Hypophosphatemia SNOMED Code(s): 9001153 ICD Code: E83.39 - OTHER DISORDERS OF PHOSPHORUS METABOLISM Status: Acute Current Visit: Yes (5) Lactic acidosis SNOMED Code(s): 71881170 ICD Code: E87.2 - ACIDOSIS Status: Acute Current Visit: Yes - Patient Instructions Diet: No Alcoholic Beverages, GI Soft/Low Residue/Low Fiber Notify Provider of: Fever, Increased Pain - Discharge Plan *PRESCRIPTION DRUG MONITORING PROGRAM REVIEWED*: Not Applicable *COPY OF PRESCRIPTION DRUG MONITORING REPORT IN PATIENT AIDE: Not Applicable Prescriptions/Med Rec: levoFLOXacin [Levofloxacin] 750 mg PO DAILY 11 Days #11 tablet Ondansetron [Ondansetron ODT] 4 mg PO Q6H PRN 2 Days #8 tab.rapdis PRN Reason: Nausea Tobacco Cessation Medication: Prescription Given Home Medications: Home Meds Acetaminophen [Tylenol] 650 mg PO Q4H PRN 11/15/20 [History] Loratadine/Pseudoephedrine [Loratadine-D 12 Hour Tablet] 1 tab PO DAILY PRN 11/15/20 [History] 168/Iron/Folic/Omega3 [One-A-Day -1 Softgel] 1 tab PO DAILY 11/15/20 [History] Acetaminophen [Tylenol] 650 mg PO Q6H PRN tablet 11/18/20 [Rx] Folic Acid 1 mg PO DAILY tablet 11/18/20 [Rx] Loperamide [Imodium] 2 mg PO ASDIRECTED PRN cap 11/18/20 [Rx] Ondansetron [Ondansetron ODT] 4 mg PO Q6H PRN 2 Days #8 tab.rapdis 11/18/20 [Rx] levoFLOXacin [Levofloxacin] 750 mg PO DAILY 11 Days #11 tablet 11/18/20 [Rx] Oxygen Therapy Mode: Room Air Patient Handouts: Alcohol Use Disorder, Alcohol Withdrawal Syndrome, Alcohol Intoxication, [id number] Referrals: Pattie Mena, [employer]PER[employer] [Ordering Only Provider] - (Please call your provider on Friday and make a follow up appointment.) - Patient Data Vitals - Most Recent: Last Vital Signs Temp 97.5 F 11/18/20 08:21 Pulse 84 11/18/20 08:21 Resp 16 11/18/20 08:21 BP 159/100 H 11/18/20 08:21 Pulse Ox 97 11/18/20 08:21 Weight - Most Recent: 124.103 kg I&O - Last 24 hours: Intake & Output 11/17/20 11/18/20 11/18/20 22:59 06:59 14:59 Intake Total 3104 3376 Output Total 850 1520 Balance 2254 7476 Lab Results - Last 24 hrs: Laboratory Results - last 24 hr 11/17/20 11/18/20 11/18/20 Range/Units 23:00 06:20 06:20 WBC 10.13 (4.0-11.0) K/uL RBC 3.99 L (4.30-5.90) M/uL Hgb 12.3 (12.0-16.0) g/dL Hct 37.6 (36.0-46.0) % MCV 94.2 (80.0-98.0) fL MCH 30.8 (27.0-32.0) pg MCHC 32.7 (31.0-37.0) g/dL RDW Std Deviation 52.0 (28.0-62.0) fl RDW Coeff of Oleksandr 15 (11.0-15.0) % Plt Count 92 L (150-400) K/uL MPV 12.60 H (7.40-12.00) fL Neut % (Auto) 78.5 (48.0-80.0) % Lymph % (Auto) 12.5 L (16.0-40.0) % Benson % (Auto) 7.3 (0.0-15.0) % Eos % (Auto) 1.6 (0.0-7.0) % Baso % (Auto) 0.1 (0.0-1.5) % Neut # (Auto) 8.0 H (1.4-5.7) K/uL Lymph # (Auto) 1.3 (0.6-2.4) K/uL Benson # (Auto) 0.7 (0.0-0.8) K/uL Eos # (Auto) 0.2 (0.0-0.7) K/uL Baso # (Auto) 0.0 (0.0-0.1) K/uL Nucleated RBC % 0.0 /100WBC Nucleated RBCs # 0 K/uL Sodium 140 (136-145) mmol/L Potassium 4.0 (3.5-5.1) mmol/L Chloride 107 (98-107) mmol/L Carbon Dioxide 23.0 (21.0-32.0) mmol/L BUN 7 (7.0-18.0) mg/dL Creatinine 1.1 H (0.6-1.0) mg/dL Est Cr Clr Drug Dosing 66.68 mL/min Estimated GFR (MDRD) 57.9 ml/min Glucose 109 H (74-106) mg/dL Calcium 8.3 L (8.5-10.1) mg/dL Phosphorus 2.5 L (2.6-4.7) mg/dL Magnesium 1.9 (1.8-2.4) mg/dL Total Bilirubin 0.7 (0.2-1.0) mg/dL AST 71 H (15-37) IU/L ALT 91 H (14-63) IU/L Alkaline Phosphatase 95 (46-116) U/L Total Protein 6.7 (6.4-8.2) g/dL Albumin 2.4 L (3.4-5.0) g/dL Globulin 4.3 H (2.6-4.0) g/dL Albumin/Globulin Ratio 0.6 L (0.9-1.6) CHARITO Results - Last 24 hrs: Microbiology 11/16/20 20:00 Shiga Toxin I & II - Final Stool / Feces 11/16/20 01:46 Aerobic Blood Culture - Final Blood - Venous Escherichia Coli Anaerobic Blood Culture - Final 11/16/20 01:52 Aerobic Blood Culture - Final Blood - Venous - Lab Draw Anaerobic Blood Culture - Final 11/15/20 21:45 Urine Culture - Final Urine, Clean Catch Escherichia Coli 11/16/20 12:07 Aerobic Blood Culture - Preliminary Blood - Venous NO GROWTH AFTER 1 DAY Anaerobic Blood Culture - Preliminary NO GROWTH AFTER 1 DAY Med Orders - Current: Current Medications Acetaminophen (Tylenol) 650 mg PO Q6H PRN PRN Reason: Pain/Fever Last Admin: 11/18/20 06:16 Dose: 650 mg Documented by: Folic Acid (Folic Acid) 1 mg PO DAILY [facility] Last Admin: 11/18/20 08:24 Dose: 1 mg Documented by: Heparin Sodium (Porcine) (Heparin Sodium) 5,000 units SUBCUT Q12H [facility] Last Admin: 11/18/20 08:24 Dose: 5,000 units Documented by: Sodium Chloride (Normal Saline) 1,000 mls @ 999 mls/hr IV .BOLUS [facility] Sodium Chloride (Normal Saline) 1,000 mls @ 150 mls/hr IV Q6H [facility] Last Admin: 11/18/20 10:11 Dose: Not Given Documented by: Thiamine HCl 100 mg/ Sodium (Chloride) 101 mls @ 202 mls/hr IV DAILY [facility] Last Admin: 11/18/20 08:59 Dose: 202 mls/hr Documented by: Piperacillin Sod/Tazobactam (Sod 4.5 gm/ Sodium Chloride) 100 mls @ 200 mls/hr IV Q6H [facility] Last Admin: 11/18/20 10:09 Dose: 200 mls/hr Documented by: Loperamide HCl (Imodium) 2 mg PO ASDIRECTED PRN PRN Reason: Diarrhea Last Admin: 11/18/20 08:24 Dose: 2 mg Documented by: Ondansetron HCl (Zofran) 4 mg IVPUSH Q4H PRN PRN Reason: Nausea Sodium Chloride (Saline Flush) 10 ml FLUSH ASDIRECTED PRN PRN Reason: Keep Vein Open Last Admin: 11/15/20 18:17 Dose: 10 ml Documented by: Sodium Chloride (Saline Flush) 2.5 ml FLUSH ASDIRECTED PRN PRN Reason: Keep Vein Open Last Admin: 11/15/20 18:17 Dose: 2.5 ml Documented by: Sodium Phosphate (Neutra-Phos) 250 mg PO QID [facility] Last Admin: 11/18/20 06:03 Dose: 250 mg Documented by: Discontinued Medications Diazepam (Valium) 5 mg IVPUSH BID [facility] Last Admin: 11/15/20 23:04 Dose: Not Given Documented by: Diazepam (Valium.) 5 mg PO BID [facility] Last Admin: 11/16/20 09:08 Dose: 5 mg Documented by: Diazepam (Valium) 5 mg IV DAILY [facility] Sodium Chloride (Normal Saline) 1,000 mls @ 999 mls/hr IV .Bolus ONE Stop: 11/15/20 17:40 Last Infusion: 11/15/20 18:16 Dose: 250 mls/hr Documented by: Multivitamins/Minerals 10 ml/Thiamine HCl 100 mg/ Folic Acid 1 mg/ Sodium Chloride 1,011.2 mls @ 999 mls/hr IV ONETIME ONE Stop: 11/15/20 18:15 Last Infusion: 11/15/20 18:17 Dose: 250 mls/hr Documented by: Magnesium Sulfate (Magnesium Sulfate In Water 2 Gm/50 Ml) 2 gm in 50 mls @ 50 mls/hr IV ONETIME [facility] Last Admin: 11/15/20 20:30 Dose: 50 mls/hr Documented by: Sodium Chloride (Normal Saline) 1,000 mls @ 999 mls/hr IV STAT ONE Stop: 11/15/20 21:25 Last Admin: 11/15/20 22:41 Dose: 999 mls/hr Documented by: Thiamine HCl 100 mg/ Sodium (Chloride) 101 mls @ 202 mls/hr IV DAILY ONE Stop: 11/15/20 20:28 Last Admin: 11/15/20 23:16 Dose: Not Given Documented by: Sodium Chloride (Normal Saline) 1,000 mls @ 150 mls/hr IV CONTINUOUS [facility] Potassium Chloride 40 meq/ (Dextrose/Water) 1,020 mls @ 125 mls/hr IV ASDIRECTED [facility] Potassium Chloride/Sodium Chloride (Normal Saline With 40 Meq Kcl) 1,000 mls @ 125 mls/hr IV ASDIRECTED [facility] Stop: 11/16/20 09:00 Last Admin: 11/15/20 23:52 Dose: 125 mls/hr Documented by: Magnesium Sulfate (Magnesium Sulfate In Water 2 Gm/50 Ml) 2 gm in 50 mls @ 50 mls/hr IV ONETIME [facility] Last Admin: 11/15/20 23:31 Dose: 50 mls/hr Documented by: Ceftriaxone Sodium/Dextrose 1 (gm/ Premix) 50 mls @ 100 mls/hr IV Q24H [facility] Last Admin: 11/16/20 02:01 Dose: 100 mls/hr Documented by: Ceftriaxone Sodium/Dextrose 2 (gm/ Premix) 50 mls @ 100 mls/hr IV Q24H [facility] Ceftriaxone Sodium/Dextrose 1 (gm/ Premix) 50 mls @ 100 mls/hr IV ONETIME ONE Stop: 11/16/20 12:59 Last Admin: 11/16/20 13:17 Dose: Not Given Documented by: Ceftriaxone Sodium/Dextrose 1 (gm/ Premix) 50 mls @ 100 mls/hr IV ONETIME ONE Stop: 11/16/20 13:14 Last Admin: 11/16/20 13:08 Dose: 100 mls/hr Documented by: Piperacillin Sod/Tazobactam (Sod 3.375 gm/ Sodium Chloride) 50 mls @ 100 mls/hr IV Q6H [facility] Last Admin: 11/17/20 04:01 Dose: 100 mls/hr Documented by: Lactated Ringer's (Ringers, Lactated) 1,000 mls @ 999 mls/hr IV .BOLUS ONE Stop: 11/16/20 17:45 Last Admin: 11/16/20 17:30 Dose: 999 mls/hr Documented by: Magnesium Sulfate (Magnesium Sulfate In Water 2 Gm/50 Ml) 2 gm in 50 mls @ 50 mls/hr IV ONETIME ONE Stop: 11/17/20 23:29 Last Admin: 11/17/20 22:30 Dose: 50 mls/hr Documented by: Influenza Virus Vaccine (Pharmacy To Dose - Influenza Vaccine) 1 each IM ONETIME ONE Stop: 11/16/20 09:01 Influenza Virus Vaccine (Fluzone Quad 5120-1847 Syringe) 60 mcg IM .ONCE ONE Stop: 11/16/20 09:01 Loperamide HCl (Imodium) 2 mg PO ONETIME ONE Stop: 11/16/20 22:56 Last Admin: 11/16/20 23:13 Dose: 2 mg Documented by: Lorazepam (Ativan) 2 mg IVPUSH ONETIME ONE Stop: 11/15/20 16:51 Last Admin: 11/15/20 18:17 Dose: 2 mg Documented by: Lorazepam (Ativan) 0 mg IVPUSH Q4H [facility]; Protocol Last Admin: 11/18/20 00:22 Dose: Not Given Documented by: Lorazepam (Ativan) 0 mg IVPUSH Q4H PRN; Protocol PRN Reason: Other Potassium Chloride (Klor-Con M20) 40 meq PO ONETIME ONE Stop: 11/15/20 20:27 Last Admin: 11/15/20 23:04 Dose: Not Given Documented by: Potassium Chloride (Potassium Chloride) 40 meq PO ONETIME ONE Stop: 11/15/20 22:37 Last Admin: 11/15/20 23:05 Dose: Not Given Documented by: Potassium Chloride (Klor-Con M20) 40 meq PO ONETIME ONE Stop: 11/15/20 22:48 Last Admin: 11/15/20 23:44 Dose: 40 meq Documented by: Potassium Chloride (Klor-Con M20) 40 meq PO ONETIME ONE Stop: 11/16/20 08:16 Last Admin: 11/16/20 09:07 Dose: 40 meq Documented by: Potassium Chloride (Klor-Con M20) 40 meq PO ONETIME ONE Stop: 11/17/20 07:57 Last Admin: 11/17/20 08:54 Dose: 40 meq Documented by: Sertraline HCl (Zoloft) 50 mg PO DAILY [facility] Last Admin: 11/17/20 08:15 Dose: 50 mg Documented by: Sertraline HCl (Zoloft) 25 mg PO DAILY [facility] Last Admin: 11/17/20 09:44 Dose: Not Given Documented by:
--- NOTE | 2020-11-18 12:14 | PCM.DCSUM1 ---
<Jf Sanchez - Last Filed: 11/18/20 12:08> Discharge Summary - Hospital Course Free Text/Narrative:: Patient is a morbidly obese 30-year-old female with a significant past medical history of alcohol dependence-binge drinking disorder, anxiety/depression presenting on 11/15/2020 for a near syncopal episode while at work. Patient was brought into ambulance to the ED. ED course: Endorsed to ED physician having a binge drinking episode of alcohol on Friday and started having nausea with vomiting the following day. She has not been able to tolerate anything p.o. since having that binge drinking episode. On arrival to ED she was found to be tremulous, agitated nauseous and having nonbil ious vomiting. Patient was also endorsing head fullness sensation and feeling agitated/anxious. Of note patient did endorse a recent miscarriage on 09/22/2020. ED evaluation suggested negative hCG, qualitative and quantitative and a negative transvaginal ultrasound for any products of conception. COVID positive prior to admission: no signs of respiratory distress, not requiring supplemental o2. Occasional non-productive coughs but ultimately endorses this was not too bothersome. Hospital course: Patient was admitted for alcohol withdrawal secondary to elevated CIWA of 20 and numerous electrolyte imbalances including hypokalemia with a potassium of 2.7, hypomagnesemia and hypophosphatemia. Overnight on day of admission patient was also having fevers with a T-max of 101, blood cultures were ordered which ultimately suggested E. coli bacteremia; pansensitive, and also early onset acute pyelonephritis without obstruction on ct-abdomen /pelvis. Patient was started on Zosyn 4.5 g and tolerated medication with subsequent reduction in leukocytosis the following day. Over the course of hospital stay's patient required less Ativan and ultimately not requiring Ativan per CIWA protocol x48 hours prior to discharge and was subsequently improving as far as leukocytosis and abdominal pain are concerned. Patient does endorse significant diarrhea however stool studies were negative fo r C. difficile and Shiga toxin. As needed loperamide was used with moderate relief. ADvised to hold Sertraline as this was, per patient, also contributing to her diarrhea. Mentions not taking this rx in the outpatient setting due to these side effects. Patient otherwise is tolerating p.o. foods/liquids and urinating without any significant dysuria, urgency/frequency. Since cultures had returned suggested E. coli/pansensitive: Patient was discharged with levofloxacin 750 daily x11 days to complete 14-day course, advised to cook pickled meat loperamide for diarrhea as needed and also also given a presc ription for Zofran for nausea.. Patient was advised to follow primary care in the outpatient setting. Patient requested discharge. Advised , in light of her COIVD diagnosis , to complete quarantine for the next 10 days per CDC protocol. pt did not show signs of repsiratory distress or require supplemental o2 throughout stay; remdesivir was not initiated in light of this,. Disposition: Home Condition stable PCP follow-up. - Discharge Data Discharge Date: 11/18/20 Discharge Disposition: Home, Self-Care 01 Condition: Stable - Referral to Home Health Primary Care Physician: Bernardo Gregg MD - Discharge Diagnosis/Problem(s) (1) Alcohol withdrawal SNOMED Code(s): 899396939 ICD Code: F10.239 - ALCOHOL DEPENDENCE WITH WITHDRAWAL, UNSPECIFIED Status: Acute (2) Hypomagnesemia SNOMED Code(s): 296430881 ICD Code: E83.42 - HYPOMAGNESEMIA Status: Acute (3) Hypokalemia SNOMED Code(s): 23807164 ICD Code: E87.6 - HYPOKALEMIA Status: Acute (4) Hypophosphatemia SNOMED Code(s): 4763834 ICD Code: E83.39 - OTHER DISORDERS OF PHOSPHORUS METABOLISM Status: Acute (5) Lactic acidosis SNOMED Code(s): 63835583 ICD Code: E87.2 - ACIDOSIS Status: Acute - Patient Instructions Diet: No Alcoholic Beverages, GI Soft/Low Residue/Low Fiber Notify Provider of: Fever, Increased Pain - Discharge Plan *PRESCRIPTION DRUG MONITORING PROGRAM REVIEWED*: Not Applicable *COPY OF PRESCRIPTION DRUG MONITORING REPORT IN PATIENT AIDE: Not Applicable Prescriptions/Med Rec: levoFLOXacin [Levofloxacin] 750 mg PO DAILY 11 Days #11 tablet Ondansetron [Ondansetron ODT] 4 mg PO Q6H PRN 2 Days #8 tab.rapdis PRN Reason: Nausea Tobacco Cessation Medication: Prescription Given Home Medications: Home Meds Acetaminophen [Tylenol] 650 mg PO Q4H PRN 11/15/20 [History] Loratadine/Pseudoephedrine [Loratadine-D 12 Hour Tablet] 1 tab PO DAILY PRN 11/15/20 [History] 168/Iron/Folic/Omega3 [One-A-Day -1 Softgel] 1 tab PO DAILY 11/15/20 [History] Acetaminophen [Tylenol] 650 mg PO Q6H PRN tablet 11/18/20 [Rx] Folic Acid 1 mg PO DAILY tablet 11/18/20 [Rx] Loperamide [Imodium] 2 mg PO ASDIRECTED PRN cap 11/18/20 [Rx] Ondansetron [Ondansetron ODT] 4 mg PO Q6H PRN 2 Days #8 tab.rapdis 11/18/20 [Rx] levoFLOXacin [Levofloxacin] 750 mg PO DAILY 11 Days #11 tablet 11/18/20 [Rx] Oxygen Therapy Mode: Room Air Patient Handouts: Alcohol Use Disorder, Alcohol Withdrawal Syndrome, Ondansetron tablets, Alcohol Intoxication, [id number], Levofloxacin tablets Referrals: Pattie Mena [facility] [Ordering Only Provider] - (Please call your provider on Friday and make a follow up appointment.) - Discharge Summary/Plan Comment DC Time >30 min.: No - Patient Data Vitals - Most Recent: Last Vital Signs Temp 97.5 F 11/18/20 08:21 Pulse 84 11/18/20 08:21 Resp 16 11/18/20 08:21 BP 159/100 H 11/18/20 08:21 Pulse Ox 97 11/18/20 08:21 Weight - Most Recent: 124.103 kg I&O - Last 24 hours: Intake & Output 11/17/20 11/18/20 11/18/20 22:59 06:59 14:59 Intake Total 3104 3376 Output Total 850 1520 Balance 2254 1856 Lab Results - Last 24 hrs: Laboratory Results - last 24 hr 11/17/20 11/18/20 11/18/20 Range/Units 23:00 06:20 06:20 WBC 10.13 (4.0-11.0) K/uL RBC 3.99 L (4.30-5.90) M/uL Hgb 12.3 (12.0-16.0) g/dL Hct 37.6 (36.0-46.0) % MCV 94.2 (80.0-98.0) fL MCH 30.8 (27.0-32.0) pg MCHC 32.7 (31.0-37.0) g/dL RDW Std Deviation 52.0 (28.0-62.0) fl RDW Coeff of Oleksandr 15 (11.0-15.0) % Plt Count 92 L (150-400) K/uL MPV 12.60 H (7.40-12.00) fL Neut % (Auto) 78.5 (48.0-80.0) % Lymph % (Auto) 12.5 L (16.0-40.0) % Nuckolls % (Auto) 7.3 (0.0-15.0) % Eos % (Auto) 1.6 (0.0-7.0) % Baso % (Auto) 0.1 (0.0-1.5) % Neut # (Auto) 8.0 H (1.4-5.7) K/uL Lymph # (Auto) 1.3 (0.6-2.4) K/uL Nuckolls # (Auto) 0.7 (0.0-0.8) K/uL Eos # (Auto) 0.2 (0.0-0.7) K/uL Baso # (Auto) 0.0 (0.0-0.1) K/uL Nucleated RBC % 0.0 /100WBC Nucleated RBCs # 0 K/uL Sodium 140 (136-145) mmol/L Potassium 4.0 (3.5-5.1) mmol/L Chloride 107 (98-107) mmol/L Carbon Dioxide 23.0 (21.0-32.0) mmol/L BUN 7 (7.0-18.0) mg/dL Creatinine 1.1 H (0.6-1.0) mg/dL Est Cr Clr Drug Dosing 66.68 mL/min Estimated GFR (MDRD) 57.9 ml/min Glucose 109 H (74-106) mg/dL Calcium 8.3 L (8.5-10.1) mg/dL Phosphorus 2.5 L (2.6-4.7) mg/dL Magnesium 1.9 (1.8-2.4) mg/dL Total Bilirubin 0.7 (0.2-1.0) mg/dL AST 71 H (15-37) IU/L ALT 91 H (14-63) IU/L Alkaline Phosphatase 95 (46-116) U/L Total Protein 6.7 (6.4-8.2) g/dL Albumin 2.4 L (3.4-5.0) g/dL Globulin 4.3 H (2.6-4.0) g/dL Albumin/Globulin Ratio 0.6 L (0.9-1.6) CHARITO Results - Last 24 hrs: Microbiology 11/16/20 20:00 Shiga Toxin I & II - Final Stool / Feces 11/16/20 01:46 Aerobic Blood Culture - Final Blood - Venous Escherichia Coli Anaerobic Blood Culture - Final 11/16/20 01:52 Aerobic Blood Culture - Final Blood - Venous - Lab Draw Anaerobic Blood Culture - Final 11/15/20 21:45 Urine Culture - Final Urine, Clean Catch Escherichia Coli 11/16/20 12:07 Aerobic Blood Culture - Preliminary Blood - Venous NO GROWTH AFTER 1 DAY Anaerobic Blood Culture - Preliminary NO GROWTH AFTER 1 DAY Med Orders - Current: Current Medications Acetaminophen (Tylenol) 650 mg PO Q6H PRN PRN Reason: Pain/Fever Last Admin: 11/18/20 06:16 Dose: 650 mg Documented by: Folic Acid (Folic Acid) 1 mg PO DAILY [facility] Last Admin: 11/18/20 08:24 Dose: 1 mg Documented by: Heparin Sodium (Porcine) (Heparin Sodium) 5,000 units SUBCUT Q12H [facility] Last Admin: 11/18/20 08:24 Dose: 5,000 units Documented by: Sodium Chloride (Normal Saline) 1,000 mls @ 999 mls/hr IV .BOLUS [facility] Sodium Chloride (Normal Saline) 1,000 mls @ 150 mls/hr IV Q6H [facility] Last Admin: 11/18/20 10:11 Dose: Not Given Documented by: Thiamine HCl 100 mg/ Sodium (Chloride) 101 mls @ 202 mls/hr IV DAILY [facility] Last Admin: 11/18/20 08:59 Dose: 202 mls/hr Documented by: Piperacillin Sod/Tazobactam (Sod 4.5 gm/ Sodium Chloride) 100 mls @ 200 mls/hr IV Q6H [facility] Last Admin: 11/18/20 10:09 Dose: 200 mls/hr Documented by: Loperamide HCl (Imodium) 2 mg PO ASDIRECTED PRN PRN Reason: Diarrhea Last Admin: 11/18/20 08:24 Dose: 2 mg Documented by: Ondansetron HCl (Zofran) 4 mg IVPUSH Q4H PRN PRN Reason: Nausea Sodium Chloride (Saline Flush) 10 ml FLUSH ASDIRECTED PRN PRN Reason: Keep Vein Open Last Admin: 11/15/20 18:17 Dose: 10 ml Documented by: Sodium Chloride (Saline Flush) 2.5 ml FLUSH ASDIRECTED PRN PRN Reason: Keep Vein Open Last Admin: 11/15/20 18:17 Dose: 2.5 ml Documented by: Sodium Phosphate (Neutra-Phos) 250 mg PO QID [facility] Last Admin: 11/18/20 11:51 Dose: 250 mg Documented by: Discontinued Medications Diazepam (Valium) 5 mg IVPUSH BID [facility] Last Admin: 11/15/20 23:04 Dose: Not Given Documented by: Diazepam (Valium.) 5 mg PO BID [facility] Last Admin: 11/16/20 09:08 Dose: 5 mg Documented by: Diazepam (Valium) 5 mg IV DAILY [facility] Sodium Chloride (Normal Saline) 1,000 mls @ 999 mls/hr IV .Bolus ONE Stop: 11/15/20 17:40 Last Infusion: 11/15/20 18:16 Dose: 250 mls/hr Documented by: Multivitamins/Minerals 10 ml/Thiamine HCl 100 mg/ Folic Acid 1 mg/ Sodium Chloride 1,011.2 mls @ 999 mls/hr IV ONETIME ONE Stop: 11/15/20 18:15 Last Infusion: 11/15/20 18:17 Dose: 250 mls/hr Documented by: Magnesium Sulfate (Magnesium Sulfate In Water 2 Gm/50 Ml) 2 gm in 50 mls @ 50 mls/hr IV ONETIME [facility] Last Admin: 11/15/20 20:30 Dose: 50 mls/hr Documented by: Sodium Chloride (Normal Saline) 1,000 mls @ 999 mls/hr IV STAT ONE Stop: 11/15/20 21:25 Last Admin: 11/15/20 22:41 Dose: 999 mls/hr Documented by: Thiamine HCl 100 mg/ Sodium (Chloride) 101 mls @ 202 mls/hr IV DAILY ONE Stop: 11/15/20 20:28 Last Admin: 11/15/20 23:16 Dose: Not Given Documented by: Sodium Chloride (Normal Saline) 1,000 mls @ 150 mls/hr IV CONTINUOUS [facility] Potassium Chloride 40 meq/ (Dextrose/Water) 1,020 mls @ 125 mls/hr IV ASDIRECTED [facility] Potassium Chloride/Sodium Chloride (Normal Saline With 40 Meq Kcl) 1,000 mls @ 125 mls/hr IV ASDIRECTED [facility] Stop: 11/16/20 09:00 Last Admin: 11/15/20 23:52 Dose: 125 mls/hr Documented by: Magnesium Sulfate (Magnesium Sulfate In Water 2 Gm/50 Ml) 2 gm in 50 mls @ 50 mls/hr IV ONETIME [facility] Last Admin: 11/15/20 23:31 Dose: 50 mls/hr Documented by: Ceftriaxone Sodium/Dextrose 1 (gm/ Premix) 50 mls @ 100 mls/hr IV Q24H [facility] Last Admin: 11/16/20 02:01 Dose: 100 mls/hr Documented by: Ceftriaxone Sodium/Dextrose 2 (gm/ Premix) 50 mls @ 100 mls/hr IV Q24H [facility] Ceftriaxone Sodium/Dextrose 1 (gm/ Premix) 50 mls @ 100 mls/hr IV ONETIME ONE Stop: 11/16/20 12:59 Last Admin: 11/16/20 13:17 Dose: Not Given Documented by: Ceftriaxone Sodium/Dextrose 1 (gm/ Premix) 50 mls @ 100 mls/hr IV ONETIME ONE Stop: 11/16/20 13:14 Last Admin: 11/16/20 13:08 Dose: 100 mls/hr Documented by: Piperacillin Sod/Tazobactam (Sod 3.375 gm/ Sodium Chloride) 50 mls @ 100 mls/hr IV Q6H [facility] Last Admin: 11/17/20 04:01 Dose: 100 mls/hr Documented by: Lactated Ringer's (Ringers, Lactated) 1,000 mls @ 999 mls/hr IV .BOLUS ONE Stop: 11/16/20 17:45 Last Admin: 11/16/20 17:30 Dose: 999 mls/hr Documented by: Magnesium Sulfate (Magnesium Sulfate In Water 2 Gm/50 Ml) 2 gm in 50 mls @ 50 mls/hr IV ONETIME ONE Stop: 11/17/20 23:29 Last Admin: 11/17/20 22:30 Dose: 50 mls/hr Documented by: Influenza Virus Vaccine (Pharmacy To Dose - Influenza Vaccine) 1 each IM ONETIME ONE Stop: 11/16/20 09:01 Influenza Virus Vaccine (Fluzone Quad 6475-8000 Syringe) 60 mcg IM .ONCE ONE Stop: 11/16/20 09:01 Loperamide HCl (Imodium) 2 mg PO ONETIME ONE Stop: 11/16/20 22:56 Last Admin: 11/16/20 23:13 Dose: 2 mg Documented by: Lorazepam (Ativan) 2 mg IVPUSH ONETIME ONE Stop: 11/15/20 16:51 Last Admin: 11/15/20 18:17 Dose: 2 mg Documented by: Lorazepam (Ativan) 0 mg IVPUSH Q4H [facility]; Protocol Last Admin: 11/18/20 00:22 Dose: Not Given Documented by: Lorazepam (Ativan) 0 mg IVPUSH Q4H PRN; Protocol PRN Reason: Other Potassium Chloride (Klor-Con M20) 40 meq PO ONETIME ONE Stop: 11/15/20 20:27 Last Admin: 11/15/20 23:04 Dose: Not Given Documented by: Potassium Chloride (Potassium Chloride) 40 meq PO ONETIME ONE Stop: 11/15/20 22:37 Last Admin: 11/15/20 23:05 Dose: Not Given Documented by: Potassium Chloride (Klor-Con M20) 40 meq PO ONETIME ONE Stop: 11/15/20 22:48 Last Admin: 11/15/20 23:44 Dose: 40 meq Documented by: Potassium Chloride (Klor-Con M20) 40 meq PO ONETIME ONE Stop: 11/16/20 08:16 Last Admin: 11/16/20 09:07 Dose: 40 meq Documented by: Potassium Chloride (Klor-Con M20) 40 meq PO ONETIME ONE Stop: 11/17/20 07:57 Last Admin: 11/17/20 08:54 Dose: 40 meq Documented by: Sertraline HCl (Zoloft) 50 mg PO DAILY [facility] Last Admin: 11/17/20 08:15 Dose: 50 mg Documented by: Sertraline HCl (Zoloft) 25 mg PO DAILY [facility] Last Admin: 11/17/20 09:44 Dose: Not Given Documented by: <Sonya Barnes - Last Filed: 11/18/20 14:35> Discharge Summary - Hospital Course Free Text/Narrative:: I have seen and evaluated the patient and agree with the residents note unless specified in my note - Referral to Home Health Primary Care Physician: Bernardo Gregg MD - Patient Data Vitals - Most Recent: Last Vital Signs Temp 36.4 C 11/18/20 08:21 Pulse 84 11/18/20 08:21 Resp 16 11/18/20 08:21 BP 159/100 H 11/18/20 08:21 Pulse Ox 97 11/18/20 08:21 I&O - Last 24 hours: Intake & Output 11/17/20 11/18/20 11/18/20 22:59 06:59 14:59 Intake Total 3104 3376 Output Total 850 1520 Balance 2254 1856 Lab Results - Last 24 hrs: Laboratory Results - last 24 hr 11/17/20 11/18/20 11/18/20 Range/Units 23:00 06:20 06:20 WBC 10.13 (4.0-11.0) K/uL RBC 3.99 L (4.30-5.90) M/uL Hgb 12.3 (12.0-16.0) g/dL Hct 37.6 (36.0-46.0) % MCV 94.2 (80.0-98.0) fL MCH 30.8 (27.0-32.0) pg MCHC 32.7 (31.0-37.0) g/dL RDW Std Deviation 52.0 (28.0-62.0) fl RDW Coeff of Oleksandr 15 (11.0-15.0) % Plt Count 92 L (150-400) K/uL MPV 12.60 H (7.40-12.00) fL Neut % (Auto) 78.5 (48.0-80.0) % Lymph % (Auto) 12.5 L (16.0-40.0) % Nuckolls % (Auto) 7.3 (0.0-15.0) % Eos % (Auto) 1.6 (0.0-7.0) % Baso % (Auto) 0.1 (0.0-1.5) % Neut # (Auto) 8.0 H (1.4-5.7) K/uL Lymph # (Auto) 1.3 (0.6-2.4) K/uL Nuckolls # (Auto) 0.7 (0.0-0.8) K/uL Eos # (Auto) 0.2 (0.0-0.7) K/uL Baso # (Auto) 0.0 (0.0-0.1) K/uL Nucleated RBC % 0.0 /100WBC Nucleated RBCs # 0 K/uL Sodium 140 (136-145) mmol/L Potassium 4.0 (3.5-5.1) mmol/L Chloride 107 (98-107) mmol/L Carbon Dioxide 23.0 (21.0-32.0) mmol/L BUN 7 (7.0-18.0) mg/dL Creatinine 1.1 H (0.6-1.0) mg/dL Est Cr Clr Drug Dosing 66.68 mL/min Estimated GFR (MDRD) 57.9 ml/min Glucose 109 H (74-106) mg/dL Calcium 8.3 L (8.5-10.1) mg/dL Phosphorus 2.5 L (2.6-4.7) mg/dL Magnesium 1.9 (1.8-2.4) mg/dL Total Bilirubin 0.7 (0.2-1.0) mg/dL AST 71 H (15-37) IU/L ALT 91 H (14-63) IU/L Alkaline Phosphatase 95 (46-116) U/L Total Protein 6.7 (6.4-8.2) g/dL Albumin 2.4 L (3.4-5.0) g/dL Globulin 4.3 H (2.6-4.0) g/dL Albumin/Globulin Ratio 0.6 L (0.9-1.6) CHARITO Results - Last 24 hrs: Microbiology 11/16/20 12:07 Aerobic Blood Culture - Preliminary Blood - Venous NO GROWTH AFTER 2 DAYS Anaerobic Blood Culture - Preliminary NO GROWTH AFTER 2 DAYS 11/16/20 20:00 Shiga Toxin I & II - Final Stool / Feces 11/16/20 01:46 Aerobic Blood Culture - Final Blood - Venous Escherichia Coli Anaerobic Blood Culture - Final 11/16/20 01:52 Aerobic Blood Culture - Final Blood - Venous - Lab Draw Anaerobic Blood Culture - Final 11/15/20 21:45 Urine Culture - Final Urine, Clean Catch Escherichia Coli Med Orders - Current: Current Medications Discontinued Medications Acetaminophen (Tylenol) 650 mg PO Q6H PRN PRN Reason: Pain/Fever Last Admin: 11/18/20 12:28 Dose: 650 mg Documented by: Diazepam (Valium) 5 mg IVPUSH BID [facility] Last Admin: 11/15/20 23:04 Dose: Not Given Documented by: Diazepam (Valium.) 5 mg PO BID [facility] Last Admin: 11/16/20 09:08 Dose: 5 mg Documented by: Diazepam (Valium) 5 mg IV DAILY [facility] Folic Acid (Folic Acid) 1 mg PO DAILY [facility] Last Admin: 11/18/20 08:24 Dose: 1 mg Documented by: Heparin Sodium (Porcine) (Heparin Sodium) 5,000 units SUBCUT Q12H [facility] Last Admin: 11/18/20 08:24 Dose: 5,000 units Documented by: Sodium Chloride (Normal Saline) 1,000 mls @ 999 mls/hr IV .Bolus ONE Stop: 11/15/20 17:40 Last Infusion: 11/15/20 18:16 Dose: 250 mls/hr Documented by: Sodium Chloride (Normal Saline) 1,000 mls @ 999 mls/hr IV .BOLUS [facility] Multivitamins/Minerals 10 ml/Thiamine HCl 100 mg/ Folic Acid 1 mg/ Sodium Chloride 1,011.2 mls @ 999 mls/hr IV ONETIME ONE Stop: 11/15/20 18:15 Last Infusion: 11/15/20 18:17 Dose: 250 mls/hr Documented by: Magnesium Sulfate (Magnesium Sulfate In Water 2 Gm/50 Ml) 2 gm in 50 mls @ 50 mls/hr IV ONETIME [facility] Last Admin: 11/15/20 20:30 Dose: 50 mls/hr Documented by: Sodium Chloride (Normal Saline) 1,000 mls @ 999 mls/hr IV STAT ONE Stop: 11/15/20 21:25 Last Admin: 11/15/20 22:41 Dose: 999 mls/hr Documented by: Thiamine HCl 100 mg/ Sodium (Chloride) 101 mls @ 202 mls/hr IV DAILY ONE Stop: 11/15/20 20:28 Last Admin: 11/15/20 23:16 Dose: Not Given Documented by: Sodium Chloride (Normal Saline) 1,000 mls @ 150 mls/hr IV CONTINUOUS [facility] Potassium Chloride 40 meq/ (Dextrose/Water) 1,020 mls @ 125 mls/hr IV ASDIRECTED [facility] Potassium Chloride/Sodium Chloride (Normal Saline With 40 Meq Kcl) 1,000 mls @ 125 mls/hr IV ASDIRECTED [facility] Stop: 11/16/20 09:00 Last Admin: 11/15/20 23:52 Dose: 125 mls/hr Documented by: Magnesium Sulfate (Magnesium Sulfate In Water 2 Gm/50 Ml) 2 gm in 50 mls @ 50 mls/hr IV ONETIME [facility] Last Admin: 11/15/20 23:31 Dose: 50 mls/hr Documented by: Ceftriaxone Sodium/Dextrose 1 (gm/ Premix) 50 mls @ 100 mls/hr IV Q24H [facility] Last Admin: 11/16/20 02:01 Dose: 100 mls/hr Documented by: Sodium Chloride (Normal Saline) 1,000 mls @ 150 mls/hr IV Q6H [facility] Last Admin: 11/18/20 10:11 Dose: Not Given Documented by: Thiamine HCl 100 mg/ Sodium (Chloride) 101 mls @ 202 mls/hr IV DAILY [facility] Last Admin: 11/18/20 08:59 Dose: 202 mls/hr Documented by: Ceftriaxone Sodium/Dextrose 2 (gm/ Premix) 50 mls @ 100 mls/hr IV Q24H [facility] Ceftriaxone Sodium/Dextrose 1 (gm/ Premix) 50 mls @ 100 mls/hr IV ONETIME ONE Stop: 11/16/20 12:59 Last Admin: 11/16/20 13:17 Dose: Not Given Documented by: Ceftriaxone Sodium/Dextrose 1 (gm/ Premix) 50 mls @ 100 mls/hr IV ONETIME ONE Stop: 11/16/20 13:14 Last Admin: 11/16/20 13:08 Dose: 100 mls/hr Documented by: Piperacillin Sod/Tazobactam (Sod 3.375 gm/ Sodium Chloride) 50 mls @ 100 mls/hr IV Q6H [facility] Last Admin: 11/17/20 04:01 Dose: 100 mls/hr Documented by: Lactated Ringer's (Ringers, Lactated) 1,000 mls @ 999 mls/hr IV .BOLUS ONE Stop: 11/16/20 17:45 Last Admin: 11/16/20 17:30 Dose: 999 mls/hr Documented by: Piperacillin Sod/Tazobactam (Sod 4.5 gm/ Sodium Chloride) 100 mls @ 200 mls/hr IV Q6H [facility] Last Admin: 11/18/20 10:09 Dose: 200 mls/hr Documented by: Magnesium Sulfate (Magnesium Sulfate In Water 2 Gm/50 Ml) 2 gm in 50 mls @ 50 mls/hr IV ONETIME ONE Stop: 11/17/20 23:29 Last Admin: 11/17/20 22:30 Dose: 50 mls/hr Documented by: Influenza Virus Vaccine (Pharmacy To Dose - Influenza Vaccine) 1 each IM ONETIME ONE Stop: 11/16/20 09:01 Influenza Virus Vaccine (Fluzone Quad [id number] Syringe) 60 mcg IM .ONCE ONE Stop: 11/16/20 09:01 Loperamide HCl (Imodium) 2 mg PO ONETIME ONE Stop: 11/16/20 22:56 Last Admin: 11/16/20 23:13 Dose: 2 mg Documented by: Loperamide HCl (Imodium) 2 mg PO ASDIRECTED PRN PRN Reason: Diarrhea Last Admin: 11/18/20 12:14 Dose: 2 mg Documented by: Lorazepam (Ativan) 2 mg IVPUSH ONETIME ONE Stop: 11/15/20 16:51 Last Admin: 11/15/20 18:17 Dose: 2 mg Documented by: Lorazepam (Ativan) 0 mg IVPUSH Q4H [facility]; Protocol Last Admin: 11/18/20 00:22 Dose: Not Given Documented by: Lorazepam (Ativan) 0 mg IVPUSH Q4H PRN; Protocol PRN Reason: Other Ondansetron HCl (Zofran) 4 mg IVPUSH Q4H PRN PRN Reason: Nausea Potassium Chloride (Klor-Con M20) 40 meq PO ONETIME ONE Stop: 11/15/20 20:27 Last Admin: 11/15/20 23:04 Dose: Not Given Documented by: Potassium Chloride (Potassium Chloride) 40 meq PO ONETIME ONE Stop: 11/15/20 22:37 Last Admin: 11/15/20 23:05 Dose: Not Given Documented by: Potassium Chloride (Klor-Con M20) 40 meq PO ONETIME ONE Stop: 11/15/20 22:48 Last Admin: 11/15/20 23:44 Dose: 40 meq Documented by: Potassium Chloride (Klor-Con M20) 40 meq PO ONETIME ONE Stop: 11/16/20 08:16 Last Admin: 11/16/20 09:07 Dose: 40 meq Documented by: Potassium Chloride (Klor-Con M20) 40 meq PO ONETIME ONE Stop: 11/17/20 07:57 Last Admin: 11/17/20 08:54 Dose: 40 meq Documented by: Sertraline HCl (Zoloft) 50 mg PO DAILY [facility] Last Admin: 11/17/20 08:15 Dose: 50 mg Documented by: Sertraline HCl (Zoloft) 25 mg PO DAILY [facility] Last Admin: 11/17/20 09:44 Dose: Not Given Documented by: Sodium Chloride (Saline Flush) 10 ml FLUSH ASDIRECTED PRN PRN Reason: Keep Vein Open Last Admin: 11/15/20 18:17 Dose: 10 ml Documented by: Sodium Chloride (Saline Flush) 2.5 ml FLUSH ASDIRECTED PRN PRN Reason: Keep Vein Open Last Admin: 11/15/20 18:17 Dose: 2.5 ml Documented by: Sodium Phosphate (Neutra-Phos) 250 mg PO QID [facility] Last Admin: 11/18/20 11:51 Dose: 250 mg Documented by:
== END 2020-11-18 12:37 | disposition home or self-care (01) | DRG 896 ==
LOC: MW.ED 16:31 → MW.MS 20:23
PROVIDERS: ADMIT Student in an Organized Health Care Education/Training Program; ATTEND Student in an Organized Health Care Education/Training Program
DX: F10.239 Alcohol dependence with withdrawal, unspecified (principal); U07.1 COVID-19; E87.2 Acidosis; N17.9 Acute kidney failure, unspecified; N10 Acute pyelonephritis; R78.81 Bacteremia; E83.42 Hypomagnesemia; E87.6 Hypokalemia; E83.39 Other disorders of phosphorus metabolism; F41.9 Anxiety disorder, unspecified; F32.9 Major depressive disorder, single episode, unspecified; R19.7 Diarrhea, unspecified
CPT/HCPCS: 36415; 74176; 74176-26; 76801; 76801-26; 80053; 80179; 80305-QW; 81001; 82550; 83036; 83605; 83735; 84100; 84484; 84702; 84703; 85025; 85610; 87040; 87045; 87046; 87077; 87086; 87088; 87186; 87324; 87389; 87449; 87899; 93005; 93010; 96374; 99222; 99232; 99238; 99285-25; 99291; A9270-GY; J0696; J1644; J2060; J2543; J3411; J3475; J3480; J7030; J7120; U0002